=== PATIENT | female | born 1960 ===

== ENCOUNTER 2017-08-30 00:02 | Inpatient (IN) | payer MEDICAID, OTHER ==
[2017-08-30 00:47] LABS: BASO # 0.1 K/uL (0.0-0.2); BASO % 1.3 % (0.0-2.0); EOS # 0.1 K/uL (0.0-0.7); EOS % 1.3 % (0.0-4.0); HEMATOCRIT 36.7 % (34.0-47.0); LYMPH # 2.2 K/uL (1.0-4.3); LYMPH % 26.3 % (20.0-40.0); MEAN CELL VOLUME 95.2 fL (81.0-99.0); MEAN CORPUSCULAR HEMOGLOBIN 32.5 pg (27.0-31.0); MEAN CORPUSCULAR HGB CONC 34.1 g/dL (33.0-37.0); MEAN PLATELET VOLUME 10.4 fL (7.2-11.7); MONO # 0.4 K/uL (0.0-0.8); MONO % 5.2 % (0.0-10.0); RED CELL DISTRIBUTION WIDTH 14.4 % (11.5-14.5); WHITE BLOOD COUNT 8.2 K/uL (4.8-10.8)
[2017-08-30 00:54] LABS: POTASSIUM 4.4 mmol/L (3.6-5.2)
[2017-08-30 00:56] LABS: ALB/GLOB RATIO 1.1 (1.0-2.1); BILIRUBIN,TOTAL 0.6 mg/dL (0.2-1.3)
[2017-08-30 00:57] LABS: CALCIUM 9.7 mg/dl (8.6-10.4)
[2017-08-30] MEDS ORDERED: Sodium Chloride 0.9% 1,000 ML IV ONE (01:32)
--- NOTE | 2017-08-30 01:50 | C.PDOC ---
History Of Present Illness 57 y/o female c/o muscle aches and bilateral parasternal chest discomfort that began today. Denies falls or heavy lifting. No fever or chills. Time Seen by Provider: 08/30/17 00:36 Chief Complaint (Nursing): Chest Pain History Per: Patient History/Exam Limitations: no limitations Onset/Duration Of Symptoms: Hrs Current Symptoms Are (Timing): Still Present Severity: Mild Additional History Per: Patient Past Medical History Reviewed: Historical Data, Nursing Documentation, Vital Signs Vital Signs: Last Vital Signs Temp 98.1 F 08/30/17 03:10 Pulse 95 H 08/30/17 03:10 Resp 20 08/30/17 03:10 BP 124/85 08/30/17 03:10 Pulse Ox 99 08/30/17 03:10 - Medical History PMH: HTN Family History: States: Unknown Family Hx - Social History Hx Alcohol Use: No Hx Substance Use: No Review Of Systems Except As Marked, All Systems Reviewed And Found Negative. Constitutional: Positive for: Other (Muscle aches). Negative for: Fever, Chills , Sweats Cardiovascular: Positive for: Chest Pain (Parasternal chest discomfort). Negative for: Palpitations Respiratory: Negative for: Shortness of Breath Physical Exam - Physical Exam Appears: Non-toxic, No Acute Distress, Other (Appears older than stated age) Skin: Warm, Dry Head: Atraumatic, Normacephalic Chest: Tenderness (Digitally reproducible pain at the bilateral parasternal lines.) Cardiovascular: Rhythm Regular, No Murmur Respiratory: Normal Breath Sounds, No Rales, No Rhonchi, No Wheezing Extremity: Normal ROM, Tenderness (Bilateral thighs), No Deformity Neurological/Psych: Oriented x3 Gait: Steady ED Course And Treatment - Laboratory Results Result Diagrams: 08/30/17 00:42 08/30/17 00:42 Lab Interpretation: Abnormal (cpk 2213, trop neg.) ECG: Interpreted By Me ECG Rhythm: Sinus Rhythm, ST/T Changes ECG Interpretation: Normal Rate From EC O2 Sat by Pulse Oximetry: 97 (RA) Pulse Ox Interpretation: Normal - Radiology CXR: Interpreted by Me CXR Interpretation: Yes: No Acute Disease, Other (+ enlarged cardiac silhouette , no pna/pnx/CHF) Progress Note: ice pack to sternal area, IVF's, Motrin PO Reevaluation Time: 01:51 Reassessment Condition: Improved - Physician Consult Information Outcome Of Conversation: 0200: d/w Dr. Vaughan- Hospitalist [employer]- ok to Med Surg Obs. Medical Decision Making Medical Decision Making: sternal costochondritis, and mild muscle aches, no trauma, no falls, no NSAIDS/ cholesterol meds, but also mild elevated CPK 2200 pt may be mildly clinically dry, and creat 1.3 (initial for our hospital) Hydrate overnight and recheck labs in AM enlarged cardiac silhouette, consider cardiac echo to eval for dilated cardiomyopathy. Disposition Doctor Will See Patient In The: Hospital Counseled Patient/Family Regarding: Studies Performed, Diagnosis - Disposition Disposition: HOSPITALIZED Disposition Time: 02:02 Condition: GOOD - Clinical Impression Clinical Impression: Abnormal CPK, Myalgia, Chronic renal insufficiency - Scribe Statement The provider has reviewed the documentation as recorded by the Scribe Ruby saleh All medical record entries made by the Scribe were at my direction and personally dictated by me. I have reviewed the chart and agree that the record accurately reflects my personal performance of the history, physical exam, medical decision making, and the department course for this patient. I have also personally directed, reviewed, and agree with the discharge instructions and disposition.
--- NOTE | 2017-08-30 06:24 | CP.PCM.HP ---
<Amy Martinez - Last Filed: 08/30/17 07:19> History of Present Illness - History of Present Illness History of Present Illness: Patient is a 57 year old female with a past medical history of hypertension, who presents to the ED with chest pain. Patient's chest pain started at 10pm at night. She states this is the first time she has had chest pain. Patient states the pain is parasternal and worsens with movement. Patient did not take any medications to try to relieve the pain. She reports the pain is now less than it was before arriving to the ED. Patient currently denies having difficulty breathing, palpitations, abdominal pain, nausea, vomiting, and fevers. PMHx: HTN SurgHx: eye surgery 2016 FamHx: Father- [place] SocHx: denies tobacco, alcohol, and drug use Allergies: NKDA Medication: "medication for blood pressure" Present on Admission - Present on Admission Any Indicators Present on Admission: No Review of Systems - Constitutional Constitutional: absent: Chills, Excessive Sweating, Fatigue, Fever, Headache, Weakness - EENT Ears: absent: Dizziness - Cardiovascular Cardiovascular: absent: Chest Pain, Dyspnea, Lightheadedness, Palpitations - Respiratory Respiratory: absent: Cough, Dyspnea - Gastrointestinal Gastrointestinal: absent: Constipation, Diarrhea, Nausea, Vomiting - Genitourinary Genitourinary: absent: Dysuria, Hematuria, Urinary Frequency - Musculoskeletal Musculoskeletal: Myalgias (ocassional, bilateral LE). absent: Muscle Weakness, Numbness, Tingling - Neurological Neurological: absent: Dizziness, Headaches, Weakness - Endocrine Endocrine: absent: Excessive Sweating, Fatigue, Palpitations Past Patient History - Past Medical History & Family History Past Medical History?: Yes - Past Social History Smoking Status: Never Smoked - CARDIAC Hx Hypertension: Yes - PULMONARY Hx Respiratory Disorders: No - NEUROLOGICAL Hx Neurological Disorder: No - HEENT Hx HEENT Problems: No - RENAL Hx Chronic Kidney Disease: No - ENDOCRINE/METABOLIC Hx Endocrine Disorders: No - HEMATOLOGICAL/ONCOLOGICAL Hx Blood Disorders: No - INTEGUMENTARY Hx Dermatological Problems: No - MUSCULOSKELETAL/RHEUMATOLOGICAL Hx Musculoskeletal Disorders: No Hx Falls: No - GASTROINTESTINAL Hx Gastrointestinal Disorders: No - GENITOURINARY/GYNECOLOGICAL Hx Genitourinary Disorders: No - PSYCHIATRIC Hx Substance Use: No - SURGICAL HISTORY Hx Surgeries: No - ANESTHESIA Hx Anesthesia: No Hx Anesthesia Reactions: No Hx Malignant Hyperthermia: No Has any member of the family had a problem w/ anesthesia?: No Meds Allergies/Adverse Reactions: Allergies Allergy/AdvReac Type Severity Reaction Status Date / Time No Known Allergies Allergy Unverified 08/30/17 00:21 Physical Exam - Constitutional Appears: No Acute Distress - Head Exam Head Exam: ATRAUMATIC, NORMAL INSPECTION - Eye Exam Eye Exam: EOMI, Normal appearance - ENT Exam ENT Exam: Mucous Membranes Moist - Neck Exam Neck exam: Negative for: Lymphadenopathy, Tenderness, Thyromegaly - Respiratory Exam Respiratory Exam: Clear to Auscultation Bilateral, NORMAL BREATHING PATTERN. absent: Rales, Rhonchi, Wheezes, Respiratory Distress - Cardiovascular Exam Cardiovascular Exam: REGULAR RHYTHM, RRR, +S1, +S2. absent: Rubs - GI/Abdominal Exam GI & Abdominal Exam: Normal Bowel Sounds, Soft. absent: Distended, Mass, Tenderness - Extremities Exam Extremities exam: Positive for: normal inspection, pedal pulses present. Negative for: calf tenderness, pedal edema, tenderness - Neurological Exam Neurological exam: Alert, Oriented x3 - Psychiatric Exam Psychiatric exam: Normal Affect, Normal Mood - Skin Skin Exam: Dry, Intact, Normal Color, Warm Results - Vital Signs Recent Vital Signs: Last Vital Signs Temp 98.1 F 08/30/17 03:10 Pulse 95 H 08/30/17 03:10 Resp 20 08/30/17 03:10 BP 124/85 08/30/17 03:10 Pulse Ox 97 08/30/17 04:24 - Labs Result Diagrams: 08/30/17 00:42 08/30/17 00:42 Labs: Laboratory Results - last 24 hr 08/30/17 08/30/17 00:42 00:42 WBC 8.2 RBC 3.86 Hgb 12.5 Hct 36.7 MCV 95.2 MCH 32.5 H MCHC 34.1 RDW 14.4 Plt Count 175 MPV 10.4 Neut % (Auto) 65.9 Lymph % (Auto) 26.3 Gu[place]upe % (Auto) 5.2 Eos % (Auto) 1.3 Baso % (Auto) 1.3 Neut # 5.4 Lymph # 2.2 Guadalupe # 0.4 Eos # 0.1 Baso # 0.1 Sodium 136 Potassium 4.4 Chloride 101 Carbon Dioxide 23 Anion Gap 17 BUN 19 H Creatinine 1.3 H Est GFR ( Amer) 51 Est GFR (Non-Af Amer) 42 Random Glucose 123 H Calcium 9.7 Total Bilirubin 0.6 AST 64 H ALT 46 Alkaline Phosphatase 43 Total Creatine Kinase 2213 H CK-MB (Mass) 12.7 H Troponin I, Quant 0.0420 Total Protein 9.0 H Albumin 4.7 Globulin 4.2 H Albumin/Globulin Ratio 1.1 Assessment & Plan (1) Pericardial effusion Assessment and Plan: Likely pericardial effusion on chest CT Chest CT: follow up official report Echo: f/u results Ibuprofen 600mg given once for pain in ED. CXR ordered in ED showed enlarge cardiac silhouette. Cardiology consulted: Dr. Olea, help appreciated. Status: Acute (2) Abnormal CPK Assessment and Plan: Total Creatine Kinase: 2213 CAMERON: f/u results ESR: f/u results CRP: f/u results APA: f/u results TSH: f/u results CCP: f/u results RF: f/u results Status: Acute (3) Renal insufficiency Assessment and Plan: Creatinine 1.3 UA: follow up results May be secondary to dehydration. Status: Acute (4) Prophylactic measure Assessment and Plan: Heart healthy diet Pepcid 20mg PO daily Status: Acute <Paul Vaughan P - Last Filed: 09/03/17 00:08> Results - Vital Signs Recent Vital Signs: Last Vital Signs Temp 98.0 F 09/02/17 15:06 Pulse 78 09/02/17 18:41 Resp 20 09/02/17 15:06 BP 106/73 09/02/17 18:41 Pulse Ox 100 09/02/17 15:06 - Labs Result Diagrams: 09/02/17 07:17 09/02/17 07:17 Labs: Laboratory Results - last 24 hr 08/30/17 09/01/17 09/02/17 07:26 07:26 07:17 WBC RBC Hgb Hct MCV MCH MCHC RDW Plt Count MPV Neut % (Auto) Lymph % (Auto) Gu[place]upe % (Auto) Eos % (Auto) Baso % (Auto) Neut # Lymph # Guadalupe # Eos # Baso # Sodium 135 Potassium 3.8 Chloride 104 Carbon Dioxide 24 Anion Gap 11 BUN 13 Creatinine 1.1 Est GFR ( Amer) > 60 Est GFR (Non-Af Amer) 51 Random Glucose 74 Calcium 8.2 L Phosphorus 2.9 Magnesium 1.8 Total Bilirubin 0.5 AST 102 H ALT 34 Alkaline Phosphatase 35 L Total Protein 6.8 Albumin 3.7 Globulin 3.0 Albumin/Globulin Ratio 1.2 Free T4 Thyroxine (T4) 1.52 L TSH 3rd Generation 40.50 H Dibs-9-Asrjzugoqcjh Ab <9 Beta-2 GPI IgG Ab <9 Beta-2 GPI IgM Ab <9 Thyroperoxidase Ab 31 H Thyroglobulin Antibody 2 H Phosphatidylserine IgG <10 Phosphatidylserine IgA <20 Phosphatidylserine IgM <25 Anti-Phospholipid Intrp see note Anti-Cardiolipin IgG Ab <14 Anti-Cardiolipin IgA Ab <11 Anti-Cardiolipin IgM Ab <12 09/02/17 09/02/17 07:17 07:17 WBC 4.6 L RBC 3.28 L Hgb 10.7 L Hct 31.3 L MCV 95.4 MCH 32.6 H MCHC 34.1 RDW 14.4 Plt Count 135 MPV 10.3 Neut % (Auto) 64.2 Lymph % (Auto) 25.6 Gu[place]upe % (Auto) 6.0 Eos % (Auto) 3.3 Baso % (Auto) 0.9 Neut # 2.9 Lymph # 1.2 Gu[place]upe # 0.3 Eos # 0.2 Baso # 0.0 Sodium Potassium Chloride Carbon Dioxide Anion Gap BUN Creatinine Est GFR ( Amer) Est GFR (Non-Af Amer) Random Glucose Calcium Phosphorus Magnesium Total Bilirubin AST ALT Alkaline Phosphatase Total Protein Albumin Globulin Albumin/Globulin Ratio Free T4 0.08 L Thyroxine (T4) TSH 3rd Generation Mhrm-8-Dtfeyttwdsey Ab Beta-2 GPI IgG Ab Beta-2 GPI IgM Ab Thyroperoxidase Ab Thyroglobulin Antibody Phosphatidylserine IgG Phosphatidylserine IgA Phosphatidylserine IgM Anti-Phospholipid Intrp Anti-Cardiolipin IgG Ab Anti-Cardiolipin IgA Ab Anti-Cardiolipin IgM Ab Attending/Attestation - Attestation I have personally seen and examined this patient.: Yes I have fully participated in the care of the patient.: Yes I have reviewed all pertinent clinical information: Yes Notes (Text): Patient admitted with chest pain, non mulsculoskeletal upon + investigation of pericardial effusion on CT, mild rabdomyolysis, chest leads inverted t waves, pt also had edema both legs, beggy lower eyelids. Ordered TSH, screening rhematologic w/u, echo, repeat cpk, troponin, upon repeat eval patient in the morning was pain free and table vitals, cardiology was consulted as well.
[2017-08-30 07:39] LABS: BASO # 0.1 K/uL (0.0-0.2); BASO % 0.9 % (0.0-2.0); EOS % 0.3 % (0.0-4.0); HEMATOCRIT 36.6 % (34.0-47.0); LYMPH # 1.3 K/uL (1.0-4.3); LYMPH % 16.7 % (20.0-40.0); MEAN CELL VOLUME 95.3 fL (81.0-99.0); MEAN CORPUSCULAR HEMOGLOBIN 32.4 pg (27.0-31.0); MEAN PLATELET VOLUME 10.4 fL (7.2-11.7); MONO # 0.5 K/uL (0.0-0.8); RED CELL DISTRIBUTION WIDTH 14.5 % (11.5-14.5); WHITE BLOOD COUNT 7.8 K/uL (4.8-10.8)
[2017-08-30 07:46] LABS: BILIRUBIN,TOTAL 0.7 mg/dL (0.2-1.3)
[2017-08-30 07:47] LABS: ALB/GLOB RATIO 1.3 (1.0-2.1); MAGNESIUM 1.9 mg/dL (1.6-2.3)
--- NOTE | 2017-08-30 08:29 | CT ---
PROCEDURE: CT Chest without contrast HISTORY: chest pain COMPARISON: None. TECHNIQUE: Contiguous axial images were obtained through the chest without intravenous contrast enhancement. Sagittal and coronal reconstructions were performed. Radiation dose (DLP): 305.67 mGy-cm. This CT exam was performed using one or more of the following dose reduction techniques: Automated exposure control, adjustment of the mA and/or kV according to patient size, and/or use of iterative reconstruction technique. FINDINGS: LUNGS: Clear lungs. Visualized airway clear. MEDIASTINUM: Unremarkable thoracic aorta. No aneurysm. The cardiac silhouette is enlarged. There is hhad-jy-iwwnfkol pericardial effusion. Coronary artery atherosclerotic calcification are also noted. Main pulmonary artery unremarkable. No vascular congestion. No lymphadenopathy. PLEURA: No pleural fluid. No pneumothorax. BONES: No fracture. No destructive lesion. UPPER ABDOMEN: Grossly unremarkable. OTHER FINDINGS: None. IMPRESSION: Abtw-ox-uewwgaic pericardial effusion. No evidence of pneumonia or mass lesion in the lungs. Preliminary report was submitted by [facility].
[2017-08-30 08:41] LABS: TROPONIN I 13.2 ng/mL (0.00-0.120)
--- NOTE | 2017-08-30 08:56 | RAD ---
HISTORY: adm COMPARISON: No prior. FINDINGS: LUNGS: No infiltrate. Increased interstitial markings may reflect interstitial pulmonary edema. No evidence of russell alveolar pulmonary edema. PLEURA: No evidence pleural effusion or pneumothorax. CARDIOVASCULAR: Cardiomegaly. Mild congestive change. OSSEOUS STRUCTURES: No significant abnormalities. VISUALIZED UPPER ABDOMEN: Normal. OTHER FINDINGS: None. IMPRESSION: Mild congestive change and interstitial prominence suggests possible interstitial pulmonary edema. No evidence of russell alveolar edema. Follow-up advised.
[2017-08-30] MEDS ORDERED: Heparin25000 units/250ml 1/2NS 25,000 UNITS/250 ML BAG IV PRN (09:14)
[2017-08-30 09:51] LABS: THYROID STIMULATING HORMONE 38.4 mIU/L (0.46-4.68)
--- NOTE | 2017-08-30 11:16 | CP.PCM.CON ---
<[email or web address] - Last Filed: 08/30/17 19:38> History of Present Illness - History of Present Illness History of Present Illness: Meng Del Castillo DO PGY1 - Cardiology Consult Note for Dr. Olea Consultation for pericardial effusion HPI: Patient is a 57 yo F with PMH of HTN, who initially presented to ER complaining of chest pain. She now reports that chest pain started last night at 11PM while preparing some food; burning in nature; mid to left parasternal/ retrosternal pain; radiated to left shoulder and left upper chest; started suddenly; resolved after receiving motrin in the ER; no particular remitting or exacerbating factors. She has never had this pain before. She denies diaphoresis , SOB, weakness, dizziness, nausea, abdominal pain, dyspnea or worsening pain on exertion, recent trauma, recent illness, recent travel. In the ER, chest CT was done which showed small to medium sized pericardial effusion; labs showed elevated CK and CK-MB. At present, patient denies any chest pain, SOB, palpitations. She also denies any change in medications, change in activity level, sick contacts, recent bug bites. She does report to occasional pain in her legs with exertion, especially when she walks up stairs, in calf and distal thigh, both legs, worse R>L, which has been worse recently. PMH: HTN PSH: Ptyrgium removal 2015 Meds: Unknown antihypertensive Soc: Denies tobacco, alcohol, or illicits. FHx: CO in father at 78; RA in mother; DM, HTN; Heart failure in father All: NKDA ROS: In addition to HPI... Gen: Denies fatigue, F/C Neuro: Denies FUENTES, vision changes EENT: Denies Otalgia, otorrhea, rhinorrhea, facial pain/pressure Throat: Denies cough, sore throat CV: Prior chest pain; denies palpitations Pulm: Denies SOB, cough GI: Denies abdominal pain, diarrhea, constipation, N/V : Denies dysuria, hematuria Past Patient History - Past Medical History & Family History Past Medical History?: Yes - Past Social History Smoking Status: Never Smoked - CARDIAC Hx Hypertension: Yes - PULMONARY Hx Respiratory Disorders: No - NEUROLOGICAL Hx Neurological Disorder: No - HEENT Hx HEENT Problems: No - RENAL Hx Chronic Kidney Disease: No - ENDOCRINE/METABOLIC Hx Endocrine Disorders: No - HEMATOLOGICAL/ONCOLOGICAL Hx Blood Disorders: No - INTEGUMENTARY Hx Dermatological Problems: No - MUSCULOSKELETAL/RHEUMATOLOGICAL Hx Musculoskeletal Disorders: No Hx Falls: No - GASTROINTESTINAL Hx Gastrointestinal Disorders: No - GENITOURINARY/GYNECOLOGICAL Hx Genitourinary Disorders: No - PSYCHIATRIC Hx Substance Use: No - SURGICAL HISTORY Hx Surgeries: No - ANESTHESIA Hx Anesthesia: No Hx Anesthesia Reactions: No Hx Malignant Hyperthermia: No Has any member of the family had a problem w/ anesthesia?: No Meds Allergies/Adverse Reactions: Allergies Allergy/AdvReac Type Severity Reaction Status Date / Time No Known Allergies Allergy Unverified 08/30/17 00:21 - Medications Medications: Current Medications Aspirin (Aspirin Chewable) 81 mg PO DAILY CHELY Clopidogrel Bisulfate (Plavix) 75 mg PO DAILY CHELY Heparin Sodium/Sodium Chloride (Heparin 86936 Units/250ml 1/2 Normal Saline) 25 ,000 units in 250 mls @ 0 mls/hr IV .Q0M PRN; Protocol; Per Protocol PRN Reason: ADJUST RATE PER PROTOCOL Rosuvastatin Calcium (Crestor) 20 mg PO HS CHELY Physical Exam - Constitutional Appears: Non-toxic, No Acute Distress - Head Exam Head Exam: ATRAUMATIC, NORMOCEPHALIC - Eye Exam Eye Exam: EOMI, Normal appearance - ENT Exam ENT Exam: Mucous Membranes Moist - Neck Exam Neck exam: Positive for: Normal Inspection - Respiratory Exam Respiratory Exam: Clear to Auscultation Bilateral, NORMAL BREATHING PATTERN - Cardiovascular Exam Cardiovascular Exam: RRR, +S1, +S2 Additional comments: Chest wall tenderness, though not a reproduction of chest pain - GI/Abdominal Exam GI & Abdominal Exam: Soft. absent: Tenderness - Extremities Exam Extremities exam: Negative for: calf tenderness, pedal edema Additional comments: Right calf tense compared to left - Neurological Exam Neurological exam: Alert, Oriented x3 - Psychiatric Exam Psychiatric exam: Normal Affect, Normal Mood - Skin Skin Exam: Dry, Intact Results - Vital Signs Recent Vital Signs: Last Vital Signs Temp 98.2 F 08/30/17 07:05 Pulse 85 08/30/17 07:05 Resp 17 08/30/17 07:05 BP 113/72 08/30/17 07:05 Pulse Ox 100 08/30/17 07:05 - Labs Result Diagrams: 08/30/17 07:26 08/30/17 07:26 Labs: Laboratory Results - last 24 hr 08/30/17 08/30/17 08/30/17 00:42 00:42 07:26 WBC 8.2 7.8 RBC 3.86 3.84 Hgb 12.5 12.4 Hct 36.7 36.6 MCV 95.2 95.3 MCH 32.5 H 32.4 H MCHC 34.1 34.0 RDW 14.4 14.5 Plt Count 175 175 MPV 10.4 10.4 Neut % (Auto) 65.9 76.1 H Lymph % (Auto) 26.3 16.7 L Piatt % (Auto) 5.2 6.0 Eos % (Auto) 1.3 0.3 Baso % (Auto) 1.3 0.9 Neut # 5.4 6.0 Lymph # 2.2 1.3 Piatt # 0.4 0.5 Eos # 0.1 0.0 Baso # 0.1 0.1 ESR 27 H Sodium 136 Potassium 4.4 Chloride 101 Carbon Dioxide 23 Anion Gap 17 BUN 19 H Creatinine 1.3 H Est GFR ( Amer) 51 Est GFR (Non-Af Amer) 42 Random Glucose 123 H Calcium 9.7 Magnesium Total Bilirubin 0.6 AST 64 H ALT 46 Alkaline Phosphatase 43 Total Creatine Kinase 2213 H CK-MB (Mass) 12.7 H Troponin I Troponin I, Quant 0.0420 C-React Prot High Sens Total Protein 9.0 H Albumin 4.7 Globulin 4.2 H Albumin/Globulin Ratio 1.1 TSH 3rd Generation 08/30/17 08/30/17 07:26 07:26 WBC RBC Hgb Hct MCV MCH MCHC RDW Plt Count MPV Neut % (Auto) Lymph % (Auto) Piatt % (Auto) Eos % (Auto) Baso % (Auto) Neut # Lymph # Piatt # Eos # Baso # ESR Sodium 135 Potassium 4.0 Chloride 102 Carbon Dioxide 23 Anion Gap 13 BUN 16 Creatinine 1.2 Est GFR ( Amer) 56 Est GFR (Non-Af Amer) 46 Random Glucose 85 Calcium 9.0 Magnesium 1.9 Total Bilirubin 0.7 AST 163 H D ALT 39 Alkaline Phosphatase 42 Total Creatine Kinase 3044 H CK-MB (Mass) 68.3 H Troponin I 13.2000 H* Troponin I, Quant C-React Prot High Sens 3.63 H Total Protein 8.0 Albumin 4.5 Globulin 3.5 Albumin/Globulin Ratio 1.3 TSH 3rd Generation 38.40 H Assessment & Plan - Assessment and Plan (Free Text) Assessment: 57 yo F with PMH of HTN presents for CP, noted to have pericardial effusion on chest CT, and subsequent elevation in cardiac enzymes Plan: 1. Pericardial effusion - Small to medium sized effusion seen on chest CT - Echo showed moderate pericardial effusion, reduced LV function, collapsing RV - Likely 2/2 pericarditis vs hypothyroidism vs CO - ESR and CRP elevated; Autoimmune workup ordered, pending - TSH 38.4; free T4 pending - Plan for RHCx and LHCx, with diagnostic/therapeutic pericardiocentesis if chamber pressures indicate hemodynamic compromise 2. Chest pain - Patient presented with typical chest pain, but no associated symptoms, and few risk factors - ST depressions noted in lateral leads on EKG - CK and CKMB elevated in ER, trended up - Troponin normal initially, but trended up significantly today - Ordered loading dose of ASA, Plavix with maintenance daily doses - Start BB, Crestor - Heparin drip ordered - Plan for RHCx and LHCx today at [facility] 3. HTN - BP currently stable - Start BB - Continue to monitor and titrate meds as needed 4. Hypothyroidism - Pt does not have a history of hypothyroidism; TSH severely elevated - Free T4 ordered, pending - Questionable nodule on palpation of right thyroid lobe; recommend thyroid US Patient seen, discussed, and reviewed with attending <Kolby Olea - Last Filed: 09/15/17 14:27> Results - Vital Signs Recent Vital Signs: Last Vital Signs Temp 98.0 F 09/03/17 15:08 Pulse 78 09/03/17 15:08 Resp 20 09/03/17 15:08 BP 120/84 09/03/17 15:08 Pulse Ox 99 09/03/17 15:08 - Labs Result Diagrams: 09/03/17 07:07 09/03/17 07:07 Attending/Attestation - Attestation I have personally seen and examined this patient.: Yes I have fully participated in the care of the patient.: Yes I have reviewed all pertinent clinical information: Yes Notes (Text): 09/15/17 14:26 57 year old female presenting with SOB and chest pain moderate pericardial effusion on CT Echo done showed new onset CHF with moderate pericardial effusion +ve TnI trending up GDMT for NSTEMI and CAD plan for cath
[2017-08-30 13:04] LABS: URINE BILIRUBIN NEGATIVE (NEGATIVE); URINE BLOOD 1+ (NEGATIVE); URINE COLOR Straw (YELLOW); URINE GLUCOSE (UA) NORMAL (Normal); URINE KETONE NEGATIVE (NEGATIVE); URINE LEUKOCYTE ESTERASE NEG Leu/uL (Negative); URINE PROTEIN 1+ mg/dL (NEGATIVE); URINE UROBILINOGEN NORMAL mg/dL (0.2-1.0); WBC URINE < 1 /hpf (0-5)
--- NOTE | 2017-08-30 15:33 | CP.PCM.PN ---
<Arlen Arora - Last Filed: 08/30/17 15:30> Subjective - Date & Time of Evaluation Date of Evaluation: 08/30/17 Time of Evaluation: 09:00 - Subjective Subjective: Medicine Note for Dr. Guadarrama Patient was seen and examined at bedside. No acute complaints. Explained to patient she would need to be transferred to [place] for cardiac cath, she will be transferred back to [facility] s/p procedure. Denied fever, chills, headache, chest pain, abdominal pain, n/v/d/c, or urinary symptoms. Objective - Vital Signs/Intake and Output Vital Signs (last 24 hours): Temp Pulse Resp BP Pulse Ox 98.2 F 85 17 113/72 100 08/30/17 07:05 08/30/17 07:05 08/30/17 07:05 08/30/17 07:05 08/30/17 07:05 Intake and Output: 08/30/17 08/30/17 06:59 18:59 Intake Total 0 Balance 0 - Medications Medications: Current Medications Aspirin (Aspirin Chewable) 81 mg PO DAILY [facility] Clopidogrel Bisulfate (Plavix) 75 mg PO DAILY [facility] Heparin Sodium/Sodium Chloride (Heparin 79925 Units/250ml 1/2 Normal Saline) 25 ,000 units in 250 mls @ 0 mls/hr IV .Q0M PRN; Protocol; Per Protocol PRN Reason: ADJUST RATE PER PROTOCOL Rosuvastatin Calcium (Crestor) 20 mg PO HS [facility] - Labs Labs: 08/30/17 07:26 08/30/17 07:26 APTT 35 SECONDS (21-34) H 08/30/17 11:11 - Additional Findings Additional findings: - Constitutional Appears: No Acute Distress - Head Exam Head Exam: ATRAUMATIC, NORMAL INSPECTION - Eye Exam Eye Exam: EOMI, Normal appearance - ENT Exam ENT Exam: Mucous Membranes Moist - Neck Exam Neck exam: Negative for: Lymphadenopathy, Tenderness, Thyromegaly - Respiratory Exam Respiratory Exam: Clear to Auscultation Bilateral, NORMAL BREATHING PATTERN. absent: Rales, Rhonchi, Wheezes, Respiratory Distress - Cardiovascular Exam Cardiovascular Exam: REGULAR RHYTHM, RRR, +S1, +S2. absent: Rubs - GI/Abdominal Exam GI & Abdominal Exam: Normal Bowel Sounds, Soft. absent: Distended, Mass, Tenderness - Extremities Exam Extremities exam: Positive for: normal inspection, pedal pulses present. Negative for: calf tenderness, pedal edema, tenderness - Neurological Exam Neurological exam: Alert, Oriented x3 - Psychiatric Exam Psychiatric exam: Normal Affect, Normal Mood - Skin Skin Exam: Dry, Intact, Normal Color, Warm Assessment and Plan - Assessment and Plan (Free Text) Plan: Pericardial effusion * Cardiology consulted -Dr. Olea- help appreciated * Chest CT: [id number] pericardial effusion. No evidence of pneumonia or mass lesion in the lungs. * Echo: Showed moderate pericardial effusion, reduced LV function, collapsing RV. Pending official read * Patient transferred to [place] for Cardiac Cath today with Dr. Olea - she will be returning to [facility] * ASA 81mg PO daily * Plavix 75mg PO daily * Heparin Drip started * Crestor 20mg PO QHS Hypothyroidism * TSH - 38.40, Free T4 - f/u Abnormal CPK * Total Creatine Kinase: 2213 * F/U: CAMERON- neg, ESR- 27, CRP- high, APA, CCP, RF Renal insufficiency * BUN/Creatinine: 19/1.3 * UA: WNL * May be secondary to dehydration Prophylactic measure * GI PPX:Pepcid 20mg PO daily * DVT PPX: SCDs, heparin drip * Heart healthy diet DW IGOR Jeffery DO, PGY-1 <David Gutierrez - Last Filed: 08/30/17 20:08> Objective - Vital Signs/Intake and Output Vital Signs (last 24 hours): Temp Pulse Resp BP Pulse Ox 98.2 F 85 17 113/72 100 08/30/17 07:05 08/30/17 07:05 08/30/17 07:05 08/30/17 07:05 08/30/17 07:05 - Medications Medications: Current Medications Aspirin (Aspirin Chewable) 81 mg PO DAILY [facility] Clopidogrel Bisulfate (Plavix) 75 mg PO DAILY [facility] Metoprolol Tartrate (Lopressor) 25 mg PO BID [facility] Rosuvastatin Calcium (Crestor) 20 mg PO HS [facility] - Labs Labs: 08/30/17 07:26 08/30/17 07:26 APTT 35 SECONDS (21-34) H 08/30/17 11:11 Attending/Attestation - Attestation I have personally seen and examined this patient.: Yes I have fully participated in the care of the patient.: Yes I have reviewed all pertinent clinical information, including history, physical exam and plan: Yes Notes (Text): This is a 57years old female with history of hypertension was admitted last night for chest pain.patient was seen and examined with resident this morning.Patient was resting comfortable without chest pain.Her chest pain started last night at 10pm.moderate to severe retrosternal nonradiating chest pain.Denies difficulty in breathing,no nausea,no vomitng.Chest x ray with cardiomegaly,CT chest showed pericardial effusion.Troponin was elevated.Cardiology consulted.started on heparin,plavix and asprin 1.chest pain,elevated troponin,pericardial effusion Dr. Olea tower control operator consulted * Patient transferred to [place] for Cardiac Cath today with Dr. Olea - she will be returning to [facility] * ASA 81mg PO daily * Plavix 75mg PO daily * Heparin Drip started * Crestor 20mg PO QHS 2.Acute renal failure-Creatinine improving.likely due to poor hydration 3.Hypothyroidism-follow 4. * GI PPX:Pepcid 20mg PO daily * DVT PPX: SCDs, heparin drip * Heart healthy diet
--- NOTE | 2017-08-31 00:44 | CARD ---
APPROVED REPORT EXAM: Two-dimensional and M-mode echocardiogram with Doppler and color Doppler. Other Information Quality : GoodRhythm : INDICATION Abnormal EKG/Arrhythmia Pericardial Effusion 2D DIMENSIONS IVSd1.0 (0.7-1.1cm)LVDd4.9 (3.9-5.9cm) PWd1.1 (0.7-1.1cm)LVDs4.5 (2.5-4.0cm) FS (%) 9.4 %LVEF (%)20.7 (>50%) M-Mode DIMENSIONS RVDd1.29 (2.1-3.2cm)Left Atrium (MM)3.25 (2.5-4.0cm) Aortic Root3.57 (2.2-3.7cm)Aortic Cusp Exc.1.89 (1.5-2.0cm) Mitral Valve MV E Yttaipgg87.7cm/sMV A Gkmdlrpk469.0cm/sE/A ratio0.7 TDI E/Lateral E'0.0E/Medial E'0.0 Tricuspid Valve TR Peak Fmgmqnqr089jz/sTR Peak Gr.77kgCyQCKM11eoEa LEFT VENTRICLE The left ventricle is grossly normal size. There is normal left ventricular wall thickness. Left ventricle systolic function is severely impaired. The Ejection Fraction is 20-25%. There is global hypokinesis of the left ventricle. The left ventricular diastolic function is abnormal. Transmitral Doppler flow pattern is Grade I-abnormal relaxation pattern. No left ventricle thrombus noted on this study. RIGHT VENTRICLE Moderate pericardial effusion with diastolic collapse of the right ventricle noted consistent with possible cardiac tamponade. ATRIA The left atrium size is normal. There is moderate pericardial effusion with diastolic collapse of the right atrium noted. AORTIC VALVE The aortic valve is mildly thickened. The aortic valve is trileaflet. No aortic regurgitation is present. There is no aortic valvular stenosis. There is no aortic valvular vegetation. MITRAL VALVE Mitral annular calcification is mild. There is no evidence of mitral valve prolapse. There is no mitral valve stenosis. Mitral regurgitation is mild to moderate. TRICUSPID VALVE The tricuspid valve is normal in structure. There is moderate tricuspid regurgitation. Right ventricular systolic pressure is estimated at less than 30 mmHg. There is no pulmonary hypertension. There is no tricuspid valve prolapse or vegetation. There is no tricuspid valve stenosis. PULMONIC VALVE The pulmonic valve is not well visualized. GREAT VESSELS The aortic root is normal in size. PERICARDIAL EFFUSION There is a small-moderate circumferential pericardial effusion. There is an evidence of diastolic compression of the right atrium and right ventricle pericardial effusion. <Conclusion> The left ventricle is grossly normal size. Left ventricle systolic function is severely impaired. The Ejection Fraction is 20-25%. There is global hypokinesis of the left ventricle. The left ventricular diastolic function is abnormal. Mitral regurgitation is mild to moderate. There is moderate tricuspid regurgitation. There is an evidence of diastolic compression of the right atrium and right ventricle. There is moderate circumferential pericardial effusion with diastolic collapse of the right atrium and right ventricle noted consistent with possible cardiac tamponade. Please correlate clinically.
[2017-08-31 08:34] LABS: BASO # 0.1 K/uL (0.0-0.2); BASO % 1.3 % (0.0-2.0); EOS # 0.1 K/uL (0.0-0.7); EOS % 1.4 % (0.0-4.0); HEMATOCRIT 36.8 % (34.0-47.0); LYMPH % 27.2 % (20.0-40.0); MEAN CORPUSCULAR HEMOGLOBIN 32.6 pg (27.0-31.0); MEAN CORPUSCULAR HGB CONC 33.5 g/dL (33.0-37.0); MEAN PLATELET VOLUME 10.4 fL (7.2-11.7); MONO # 0.4 K/uL (0.0-0.8); MONO % 5.4 % (0.0-10.0); NRBC % 0.1 % (0.0-2.0); RED CELL DISTRIBUTION WIDTH 14.6 % (11.5-14.5); WHITE BLOOD COUNT 7.2 K/uL (4.8-10.8)
[2017-08-31 08:38] LABS: MEAN CELL VOLUME 97.3 fL (81.0-99.0)
[2017-08-31 08:50] LABS: CHLORIDE 104 mmol/L (98-107); POTASSIUM 3.7 mmol/L (3.6-5.2); SODIUM 137 mmol/L (132-148)
[2017-08-31 08:52] LABS: BILIRUBIN,TOTAL 0.8 mg/dL (0.2-1.3); CARBON DIOXIDE 20 mmol/L (22-30); GFR AFRICAN-AMERICAN > 60
[2017-08-31 08:53] LABS: ALB/GLOB RATIO 1.1 (1.0-2.1); ALKALINE PHOSPHATASE 43 U/L (38-126); ALT/SGPT 37 U/L (9-52); AST/SGOT 198 U/L (14-36); BLOOD UREA NITROGEN 12 mg/dL (7-17); GLUCOSE,RANDOM 87 mg/dL (65-105); PHOSPHOROUS 2.6 mg/dL (2.5-4.5); TOTAL PROTEIN 8.1 g/dL (6.3-8.3)
[2017-08-31 08:54] LABS: CALCIUM 8.9 mg/dl (8.6-10.4); MAGNESIUM 2.1 mg/dL (1.6-2.3)
--- NOTE | 2017-08-31 09:05 | CP.PCM.PN ---
<MENG DEL CASTILLO - Last Filed: 08/31/17 20:56> Subjective - Date & Time of Evaluation Date of Evaluation: 08/31/17 Time of Evaluation: 06:45 - Subjective Subjective: Meng Del Castillo DO PGY1 - Cardiology Progress Note for Dr. Olea Patient seen and examined at bedside. Patient is s/p RHCx and LHCx with PCI for chest pain and pericardial effusion. No events overnight. Patient currently denies any CP, SOB, palpitations, pain or swelling in legs, groin pain. Patient admits to fatigue, and daytime somnolence which she has had for a long time at home, unsure when exactly it started. Objective - Vital Signs/Intake and Output Vital Signs (last 24 hours): Temp Pulse Resp BP Pulse Ox 98.6 F 84 20 105/73 96 08/31/17 07:00 08/31/17 07:00 08/31/17 07:00 08/31/17 07:00 08/31/17 07:00 - Medications Medications: Current Medications Aspirin (Aspirin Chewable) 81 mg PO DAILY [facility] Clopidogrel Bisulfate (Plavix) 75 mg PO DAILY [facility] Metoprolol Tartrate (Lopressor) 25 mg PO BID [facility] Rosuvastatin Calcium (Crestor) 20 mg PO HS [facility] Last Admin: 08/30/17 23:25 Dose: 20 mg - Labs Labs: 08/31/17 08:22 08/30/17 07:26 APTT 35 SECONDS (21-34) H 08/30/17 11:11 - Constitutional Appears: Non-toxic, No Acute Distress - Head Exam Head Exam: ATRAUMATIC, NORMOCEPHALIC - Eye Exam Eye Exam: EOMI, Normal appearance - ENT Exam ENT Exam: Mucous Membranes Moist - Neck Exam Neck Exam: Normal Inspection Additional comments: No JVD, no hepatojugular reflux - Respiratory Exam Respiratory Exam: Clear to Ausculation Bilateral. absent: Rales, Rhonchi, Wheezes - Cardiovascular Exam Cardiovascular Exam: RRR, +S1, +S2. absent: Rubs - GI/Abdominal Exam GI & Abdominal Exam: Soft. absent: Tenderness Additional comments: Minimal groin tenderness. No hematoma, no bruits - Extremities Exam Extremities Exam: absent: Calf Tenderness, Pedal Edema Additional comments: DP pulses palpable bilaterally - Neurological Exam Neurological Exam: Alert, Awake, Oriented x3 - Psychiatric Exam Psychiatric exam: Normal Affect, Normal Mood - Skin Skin Exam: Dry, Intact Assessment and Plan - Assessment and Plan (Free Text) Assessment: 57 yo F with PMH of HTN presents for CP, noted to have pericardial effusion on chest CT, and subsequent elevation in cardiac enzymes Plan: 1. Pericardial effusion - Small to medium sized effusion seen on chest CT - Echo showed moderate pericardial effusion, reduced LV function, collapsing RV - Likely 2/2 hypothyroidism vs MT vs pericarditis - Patient likely had underlying pericardial effusion 2/2 chronic, undiagnosed hypothyroidism, which was acutely worsened with NSTEMI which made her preload dependant - ESR and CRP elevated; Autoimmune workup ordered, pending - TSH 38.4; free T4 pending - Patient is s/p RHCx and LHCx; pericardiocentesis not done; RHCx did not demonstrate elevated filling pressures or tamponade physiology 2. Chest pain, 2/2 NSTEMI - Patient presented with typical chest pain, but no associated symptoms, and few risk factors - ST depressions noted in lateral leads on EKG - CK and CKMB elevated in ER, trended up; Troponin normal initially, continued to trend up throughout the day - Patient s/p LHCx which demonstrated 100% calcified occlusion in proximal left circumflex artery, ruptured plaque in proximal LAD and occlusive thrombus in distal LAD; subsequent PCI with [id number]-[id number] LAD JAZMINE placement and PTCA with intracoronary integrilin and POBA of distal LAD - Patient receiving loading doses of ASA and plavix yesterday; continue ASA, plavix - Continue BB, Statin - Heparin drip ordered yesterday, but was not started, and was ultimately cancelled preprocedure 3. Hyperlipidemia - Lipid panel done today, shows elevated total cholesterol, LDL, and triglycerides, but good HDL - Continue statin, as above 4. HTN - BP currently stable - Continue BB - Continue to monitor and titrate meds as needed 5. Hypothyroidism - Pt does not have a history of hypothyroidism; TSH severely elevated - Free T4 low - Questionable nodule on palpation of right thyroid lobe; recommend thyroid US - Treatment as per primary team Patient seen, discussed, and reviewed with attending <Kolby Olea - Last Filed: 09/15/17 14:29> Objective - Vital Signs/Intake and Output Vital Signs (last 24 hours): Temp Pulse Resp BP Pulse Ox 98.0 F 78 20 120/84 99 10/13/17 15:08 09/03/17 15:08 09/03/17 15:08 09/03/17 15:08 09/03/17 15:08 - Labs Labs: 09/03/17 07:07 09/03/17 07:07 PT 11.7 SECONDS (9.7-12.2) 08/31/17 11:43 INR 1.0 08/31/17 11:43 APTT 35 SECONDS (21-34) H 08/30/17 11:11 Attending/Attestation - Attestation I have personally seen and examined this patient.: Yes I have fully participated in the care of the patient.: Yes I have reviewed all pertinent clinical information, including history, physical exam and plan: Yes
[2017-08-31 09:27] LABS: CHOLESTEROL 484 mg/dL (0-199)
--- NOTE | 2017-08-31 12:50 | CP.PCM.PN ---
<IgorArlen - Last Filed: 08/31/17 12:42> Subjective - Date & Time of Evaluation Date of Evaluation: 08/31/17 Time of Evaluation: 09:00 - Subjective Subjective: Medicine Note for Dr. Guadarrama Patient was seen and examined at bedside. No acute complaints. S/O cardiac catherization with Dr. Olea, RHCx and LHCx with PCI for chest pain and pericardial effusion. Denied fever, chills, headache, chest pain, abdominal pain , n/v/d/c, or urinary symptoms. Objective - Vital Signs/Intake and Output Vital Signs (last 24 hours): Temp Pulse Resp BP Pulse Ox 98.6 F 81 20 101/65 96 08/31/17 07:00 08/31/17 09:30 08/31/17 07:00 08/31/17 09:31 08/31/17 07:00 - Medications Medications: Current Medications Aspirin (Aspirin Chewable) 81 mg PO DAILY [facility] Last Admin: 08/31/17 09:32 Dose: 81 mg Clopidogrel Bisulfate (Plavix) 75 mg PO DAILY [facility] Last Admin: 08/31/17 09:32 Dose: 75 mg Metoprolol Tartrate (Lopressor) 25 mg PO BID [facility] Last Admin: 08/31/17 09:31 Dose: Not Given Rosuvastatin Calcium (Crestor) 20 mg PO HS [facility] Last Admin: 08/30/17 23:25 Dose: 20 mg - Labs Labs: 08/31/17 08:22 08/31/17 08:22 PT 11.7 SECONDS (9.7-12.2) 08/31/17 11:43 INR 1.0 08/31/17 11:43 APTT 35 SECONDS (21-34) H 08/30/17 11:11 - Additional Findings Additional findings: - Constitutional Appears: No Acute Distress - Head Exam Head Exam: ATRAUMATIC, NORMAL INSPECTION, some periorbital swelling noted - Eye Exam Eye Exam: EOMI, Normal appearance - ENT Exam ENT Exam: Mucous Membranes Moist - Neck Exam Neck exam: Negative for: Lymphadenopathy, Tenderness, Thyromegaly - Respiratory Exam Respiratory Exam: Clear to Auscultation Bilateral, NORMAL BREATHING PATTERN. absent: Rales, Rhonchi, Wheezes, Respiratory Distress - Cardiovascular Exam Cardiovascular Exam: REGULAR RHYTHM, RRR, +S1, +S2. absent: Rubs - GI/Abdominal Exam GI & Abdominal Exam: Normal Bowel Sounds, Soft. absent: Distended, Mass, Tenderness - Extremities Exam Extremities exam: Positive for: normal inspection, pedal pulses present. Negative for: calf tenderness, pedal edema, tenderness - Neurological Exam Neurological exam: Alert, Oriented x3 - Psychiatric Exam Psychiatric exam: Normal Affect, Normal Mood - Skin Skin Exam: Dry, Intact, Normal Color, Warm Assessment and Plan - Assessment and Plan (Free Text) Plan: Pericardial effusion * Cardiology consulted -Dr. Olea- help appreciated * Chest CT: [id number]-[id number] pericardial effusion. No evidence of pneumonia or mass lesion in the lungs. * Echo: Showed moderate pericardial effusion, reduced LV function, collapsing RV. Pending official read * Patient transferred to [place] for Cardiac Cath with Dr. Olea - s/p RHCx and LHCx with PCI for chest pain and pericardial effusion * ASA 81mg PO daily * Plavix 75mg PO daily * Crestor 20mg PO QHS Hypothyroidism * Right sided, thyromegaly * TSH - 38.40, Free T4 - 0.07 * ESR - 27, CRP 3.6 * Endocrinology consulted - Dr. Huizar - donna appreciated * F/U thyroid US Hyperlipidemia * T , LDL:337, Choles:484, HDL: 68 * Hga1c (08/2017): 5.6 * Crestor 20mg PO QHS Renal insufficiency - Resolved * BUN/Creatinine: 19/1.3 * UA: WNL * May be secondary to dehydration Prophylactic measure * GI PPX:Pepcid 20mg PO daily * DVT PPX: SCDs, Heparin Q12 * Heart healthy diet * Social work- to help patient apply for christ[facility] care IGOR Jeffery DO, PGY-1 <David Gutierrez - Last Filed: 08/31/17 15:48> Objective - Vital Signs/Intake and Output Vital Signs (last 24 hours): Temp Pulse Resp BP Pulse Ox 98.3 F 76 18 102/64 99 08/31/17 12:40 08/31/17 14:22 08/31/17 12:40 08/31/17 14:22 08/31/17 12:40 - Medications Medications: Current Medications Aspirin (Aspirin Chewable) 81 mg PO DAILY [facility] Last Admin: 08/31/17 09:32 Dose: 81 mg Clopidogrel Bisulfate (Plavix) 75 mg PO DAILY [facility] Last Admin: 08/31/17 09:32 Dose: 75 mg Heparin Sodium (Porcine) (Heparin) 5,000 units SC Q12 [facility] Levothyroxine Sodium (Synthroid) 75 mcg PO DAILY@0630 [facility] Metoprolol Tartrate (Lopressor) 25 mg PO BID [facility] Last Admin: 08/31/17 09:31 Dose: Not Given Rosuvastatin Calcium (Crestor) 20 mg PO HS [facility] Last Admin: 08/30/17 23:25 Dose: 20 mg - Labs Labs: 08/31/17 08:22 08/31/17 08:22 PT 11.7 SECONDS (9.7-12.2) 08/31/17 11:43 INR 1.0 08/31/17 11:43 APTT 35 SECONDS (21-34) H 08/30/17 11:11 Attending/Attestation - Attestation I have personally seen and examined this patient.: Yes I have fully participated in the care of the patient.: Yes I have reviewed all pertinent clinical information, including history, physical exam and plan: Yes Notes (Text): patient was seen and examined resident.She denies chest pain,no shortness of breath,lying on bed comfortable. 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 Pericardial effusion Small to medium sized effusion seen on chest CT - Echo showed moderate pericardial effusion, reduced LV function, collapsing RV, no signs of tamponade As per cardiology contributing factors for her pericardial effusion is hypothyroidism vs [place] vs pericarditis ESR and CRP elevated 3. Hyperlipidemia continue statin 4. HTN monitor BP,on beta gloria 5. Hypothyroidism Pt does not have a history of hypothyroidism; TSH elevated, Free T4 low.Seen by Dr Huizar and started on Levothyroxin. Help appreciated 08/31/17 15:46
[2017-08-31] MEDS ORDERED: Levothyroxine 200 mcg (0.2 mg) Inj IVP STA (13:40)
[2017-08-31] MEDS ORDERED: Levothyroxine 100 mcg (0.1 mg) Inj IVP ONE (14:00)
--- NOTE | 2017-08-31 14:08 | US ---
HISTORY: right thyromegaly TECHNIQUE: Sonographic evaluation of the thyroid gland. COMPARISON: None available. FINDINGS: RIGHT LOBE: Measures 3.5 x 1.4 x 1.1 cm. Heterogeneous echogenicity is seen throughout the right thyroid lobe with innumerable tiny nodules not excluded though no isolated dominant mass is evident grossly. Color Doppler blood flow was unremarkable grossly. LEFT LOBE: Measures 3.4 x 0.9 x 1.2 cm. Heterogeneous echogenicity is seen throughout the left thyroid lobe with innumerable tiny nodules not excluded though no isolated dominant mass is evident grossly. Color Doppler blood flow was unremarkable grossly. ISTHMUS: Measures 0.24 cm. The axis appears inhomogeneous in echotexture without discrete mass identified. OTHER FINDINGS: None . IMPRESSION: A small thyroid gland is appreciate with diffusely inhomogeneous echotexture. Tiny nodules are not excluded bilaterally though no dominant masses appreciated either lobe or the isthmus in particular. Clinical and potential sonographic follow-up are advised. If there is clinical concern for right-sided neck lesion further then follow-up neck CT with contrast may be helpful for additional characterization of the neck.
[2017-08-31 17:35] LABS: CCP IGG <16 Units (<20)
[2017-08-31] MEDS: Sodium Chloride 0.9% 1,000 ML IV SCH (17:39)
--- NOTE | 2017-08-31 21:26 | CON ---
ENDOCRINOLOGY CONSULTATION LOCATION: Room #663. HISTORY OF PRESENT ILLNESS: This is a 57-year-old female, presenting here with precordial chest pain radiating to the left side of her anterior chest wall and has been evaluated to have an acute myocardial infarction with supervening and underlying pericardial effusion and hypothyroidism as noted thereof. PAST MEDICAL HISTORY: As mentioned above, history of hypertension and dyslipidemia. FAMILY HISTORY: Positive for diabetes and hypertension. SOCIAL HISTORY: The patient has supportive family. No known substance use. REVIEW OF SYSTEMS: As mentioned above, admits to generalized body weakness with easy fatigability, tiredness, and suboptimal energy level. No chest pain, palpitations, or PND. Her oral intake has been variable with nausea, dyspepsia, vague upper abdominal pain with habitual constipation. PHYSICAL EXAMINATION: GENERAL: This is an average-built female, in no apparent distress. VITAL SIGNS: Her blood pressure 140/80, pulse of 60 beats per minute and regular, temperature 98, respirations 16, height is 5 feet 5 inches, and weight is 172 pounds. HEENT: Head is normocephalic. Eyes, anicteric with pink conjunctivae. Funduscopy is not possible at this time. Ears, nose, and throat are otherwise normal. NECK: Supple. Thyroid gland shows mild thyromegaly which is diffuse and nontender and moves with deglutition. LABORATORY DATA: Laboratory showed a chemistry, BUN of 12, sodium 137, potassium 3.7, chloride 104, CO2 of 20, glucose 87, creatinine 0.6, free T4 is less than 0.07 with a TSH of 38.40. She also had a CAT of the chest showing a moderate pericardial effusion as noted thereof. ASSESSMENT: This is a 57-year-old female with overt hypothyroidism both historically, clinically, and biochemically, presenting here with precordial chest pain and undergoing cardiac workup and management at this time. PLAN OF MANAGEMENT: As discussed with the patient and the staff. We will obtain a comprehensive thyroid hormonal profile with a total T4, free T4, and TSH tomorrow morning. We will also obtain a thyroid peroxidase antibody and thyroglobulin antibody which will confirm and indicate the presence of underlying thyroid autoimmunity. We will obtain serial chemistries and supplement accordingly as needed. We will follow with you. Padmini Huizar MD [facility] # [id number]
[2017-09-01] MEDS: Sodium Chloride 0.9% 1,000 ML IV SCH ×3 (05:44→21:00)
--- NOTE | 2017-09-01 06:24 | CP.PCM.PN ---
<Arlen Arora - Last Filed: 09/01/17 11:49> Subjective - Date & Time of Evaluation Date of Evaluation: 09/01/17 Time of Evaluation: 09:00 - Subjective Subjective: Medicine Note for Dr. Guadarrama Patient was seen and examined at bedside. No acute complaints. Denied fever, chills, headache, chest pain, abdominal pain, n/v/d/c, or urinary symptoms. Objective - Vital Signs/Intake and Output Vital Signs (last 24 hours): Temp Pulse Resp BP Pulse Ox 98.4 F 73 20 112/69 96 08/31/17 23:05 08/31/17 23:05 08/31/17 23:05 08/31/17 23:05 08/31/17 23:05 Intake and Output: 08/31/17 09/01/17 18:59 06:59 Intake Total 500 Balance 500 - Medications Medications: Current Medications Aspirin (Aspirin Chewable) 81 mg PO DAILY [facility] Last Admin: 08/31/17 09:32 Dose: 81 mg Clopidogrel Bisulfate (Plavix) 75 mg PO DAILY [facility] Last Admin: 08/31/17 09:32 Dose: 75 mg Heparin Sodium (Porcine) (Heparin) 5,000 units SC Q12 [facility] Last Admin: 08/31/17 22:38 Dose: 5,000 units Sodium Chloride (Sodium Chloride 0.9%) 1,000 mls @ 100 mls/hr IV .Q10H [facility] Last Admin: 09/01/17 05:44 Dose: 100 mls/hr Levothyroxine Sodium (Synthroid) 75 mcg PO DAILY@0630 [facility] Last Admin: 09/01/17 05:45 Dose: 75 mcg Metoprolol Tartrate (Lopressor) 25 mg PO BID [facility] Last Admin: 08/31/17 20:22 Dose: Not Given Rosuvastatin Calcium (Crestor) 20 mg PO HS [facility] Last Admin: 08/31/17 22:38 Dose: 20 mg - Labs Labs: 08/31/17 08:22 08/31/17 08:22 PT 11.7 SECONDS (9.7-12.2) 08/31/17 11:43 INR 1.0 08/31/17 11:43 APTT 35 SECONDS (21-34) H 08/30/17 11:11 - Additional Findings Additional findings: - Constitutional Appears: No Acute Distress - Head Exam Head Exam: ATRAUMATIC, NORMAL INSPECTION, some periorbital swelling noted - Eye Exam Eye Exam: EOMI, Normal appearance - ENT Exam ENT Exam: Mucous Membranes Moist - Neck Exam Neck exam: Negative for: Lymphadenopathy, Tenderness, Thyromegaly - Respiratory Exam Respiratory Exam: Clear to Auscultation Bilateral, NORMAL BREATHING PATTERN. absent: Rales, Rhonchi, Wheezes, Respiratory Distress - Cardiovascular Exam Cardiovascular Exam: REGULAR RHYTHM, RRR, +S1, +S2. absent: Rubs - GI/Abdominal Exam GI & Abdominal Exam: Normal Bowel Sounds, Soft. absent: Distended, Mass, Tenderness - Extremities Exam Extremities exam: Positive for: normal inspection, pedal pulses present. Negative for: calf tenderness, pedal edema, tenderness - Neurological Exam Neurological exam: Alert, Oriented x3 - Psychiatric Exam Psychiatric exam: Normal Affect, Normal Mood - Skin Skin Exam: Dry, Intact, Normal Color, Warm Assessment and Plan - Assessment and Plan (Free Text) Plan: Pericardial effusion NSTEMI * Cardiology consulted -Dr. Olea- donna appreciated * Chest CT: [id number] pericardial effusion. No evidence of pneumonia or mass lesion in the lungs. * Echo: Showed moderate pericardial effusion, reduced LV function, collapsing RV. Pending official read * Patient transferred to [facility] for Cardiac Cath with Dr. Olea - s/p RHCx and LHCx with PCI for chest pain and pericardial effusion * f/u Dr. Olea reccs * ASA 81mg PO daily * Plavix 75mg PO daily * Crestor 20mg PO QHS * Metoprolol 12.5mg PO BID - continue to monitor, patient had a hypotensive event yesterday x2 Hypothyroidism * Right sided, thyromegaly * TSH - 38.40, Free T4 - 0.07 * ESR - 27, CRP 3.6 * Thyroid US 08/31/17: A small thyroid gland is appreciate with diffusely inhomogeneous echotexture. Tiny nodules are not excluded bilaterally though no dominant masses appreciated either lobe or the isthmus in particular. Clinical and potential sonographic follow-up are advised. If there is clinical concern for right-sided neck lesion further then follow-up neck CT with contrast may be helpful for additional characterization of the neck. * Endocrinology consulted - Dr. Huizar - help appreciated * Given Synthroid 100mcg IV one time dose * Was started on Synthroid - 75mcg PO daily * Autoimmune workup ordered - will follow up results and recommendations by Dr. Huizar Hyperlipidemia * T , LDL:337, Choles:484, HDL: 68 * Hga1c (08/2017): 5.6 * Recommended lifestyle and diet modifications to prevent patient from becoming overt diabetic * Crestor 20mg PO QHS Prophylactic measure * GI PPX:Pepcid 20mg PO daily * DVT PPX: SCDs, Heparin Q12 * Heart healthy diet * Social work- to help patient apply for [facility] IGOR Jeffery DO, PGY-1 <David Gutierrez - Last Filed: 09/01/17 15:28> Objective - Vital Signs/Intake and Output Vital Signs (last 24 hours): Temp Pulse Resp BP Pulse Ox 98.2 F 68 20 106/73 98 09/01/17 07:00 09/01/17 12:00 09/01/17 07:00 09/01/17 10:28 09/01/17 07:00 Intake and Output: 09/01/17 09/01/17 06:59 18:59 Intake Total 800 Balance 800 - Medications Medications: Current Medications Aspirin (Aspirin Chewable) 81 mg PO DAILY [facility] Last Admin: 09/01/17 10:28 Dose: 81 mg Clopidogrel Bisulfate (Plavix) 75 mg PO DAILY [facility] Last Admin: 09/01/17 10:28 Dose: 75 mg Heparin Sodium (Porcine) (Heparin) 5,000 units SC Q12 [facility] Last Admin: 09/01/17 10:28 Dose: 5,000 units Sodium Chloride (Sodium Chloride 0.9%) 1,000 mls @ 100 mls/hr IV .Q10H [facility] Last Admin: 09/01/17 05:44 Dose: 100 mls/hr Levothyroxine Sodium (Synthroid) 75 mcg PO DAILY@0630 [facility] Last Admin: 09/01/17 05:45 Dose: 75 mcg Metoprolol Tartrate (Lopressor) 12.5 mg PO BID [facility] Rosuvastatin Calcium (Crestor) 20 mg PO HS [facility] Last Admin: 08/31/17 22:38 Dose: 20 mg - Labs Labs: 09/01/17 07:26 09/01/17 07:26 PT 11.7 SECONDS (9.7-12.2) 08/31/17 11:43 INR 1.0 08/31/17 11:43 APTT 35 SECONDS (21-34) H 08/30/17 11:11 Attending/Attestation - Attestation I have personally seen and examined this patient.: Yes I have fully participated in the care of the patient.: Yes I have reviewed all pertinent clinical information, including history, physical exam and plan: Yes Notes (Text): Patient was seen and examined this morning with resident.Has no complain.Ambulating in her room,Denies dizziness.S/P hypotension last night 1. NE,s/p RHCx and LHCx ,s/p cardiac stent continue asprin and plavix.On Statin,metorpolol s/p hypotension.Denies any dizziness.HER BP remains good this afternoon.HR aroun 70ies.Metoprolol reduced to 12.5mg BID 2. Pericardial effusion Small to medium sized effusion seen on chest CT - Echo showed moderate pericardial effusion, reduced LV function, collapsing RV, no signs of tamponade ESR and CRP elevated 3. Hyperlipidemia continue statin 4. HTN monitor BP,on beta gloria 5. Hypothyroidism Pt does not have a history of hypothyroidism; TSH elevated, Free T4 low.Seen by Dr Huizar and started on Levothyroxin. Help appreciated
[2017-09-01] MEDS ORDERED: Levothyroxine 75 MCG TAB PO SCH (06:30)
[2017-09-01 07:44] LABS: BASO # 0.1 K/uL (0.0-0.2); BASO % 1.3 % (0.0-2.0); EOS # 0.1 K/uL (0.0-0.7); EOS % 2.9 % (0.0-4.0); LYMPH # 1.3 K/uL (1.0-4.3); LYMPH % 25.8 % (20.0-40.0); MEAN CELL VOLUME 95.1 fL (81.0-99.0); MEAN CORPUSCULAR HEMOGLOBIN 32.7 pg (27.0-31.0); MEAN CORPUSCULAR HGB CONC 34.4 g/dL (33.0-37.0); MEAN PLATELET VOLUME 10.3 fL (7.2-11.7); MONO # 0.4 K/uL (0.0-0.8); MONO % 6.8 % (0.0-10.0); RED CELL DISTRIBUTION WIDTH 14.4 % (11.5-14.5); WHITE BLOOD COUNT 5.2 K/uL (4.8-10.8)
[2017-09-01 07:48] LABS: CHLORIDE 104 mmol/L (98-107); POTASSIUM 3.9 mmol/L (3.6-5.2); SODIUM 135 mmol/L (132-148)
[2017-09-01 07:50] LABS: GFR AFRICAN-AMERICAN > 60
[2017-09-01 07:51] LABS: ALB/GLOB RATIO 1.2 (1.0-2.1); ALKALINE PHOSPHATASE 38 U/L (38-126); ALT/SGPT 34 U/L (9-52); AST/SGOT 126 U/L (14-36); BILIRUBIN,TOTAL 0.6 mg/dL (0.2-1.3); BLOOD UREA NITROGEN 14 mg/dL (7-17); CALCIUM 8.3 mg/dl (8.6-10.4); CARBON DIOXIDE 22 mmol/L (22-30); GLUCOSE,RANDOM 68 mg/dL (65-105); MAGNESIUM 1.9 mg/dL (1.6-2.3); PHOSPHOROUS 2.7 mg/dL (2.5-4.5)
--- NOTE | 2017-09-01 15:35 | CP.PCM.PN ---
<HARJIT DEL CASTILLO - Last Filed: 09/01/17 15:32> Subjective - Date & Time of Evaluation Date of Evaluation: 09/01/17 Time of Evaluation: 07:45 - Subjective Subjective: Harjit Del Castillo DO PGY1 - Cardiology Progress Note for Dr. Olea Patient seen and examined at bedside, no events overnight. Patient now denies chest pain or SOB. She now appears more awake and alert, compared to previously when she was always lying in bed, sleeping. Patient had one episode of borderline hypotension yesterday, though was asymptomatic and stable. Objective - Vital Signs/Intake and Output Vital Signs (last 24 hours): Temp Pulse Resp BP Pulse Ox 98.2 F 68 20 106/73 98 09/01/17 07:00 09/01/17 12:00 09/01/17 07:00 09/01/17 10:28 09/01/17 07:00 Intake and Output: 09/01/17 09/01/17 06:59 18:59 Intake Total 800 1100 Balance 800 1100 - Medications Medications: Current Medications Aspirin (Aspirin Chewable) 81 mg PO DAILY [facility] Last Admin: 09/01/17 10:28 Dose: 81 mg Clopidogrel Bisulfate (Plavix) 75 mg PO DAILY [facility] Last Admin: 09/01/17 10:28 Dose: 75 mg Heparin Sodium (Porcine) (Heparin) 5,000 units SC Q12 [facility] Last Admin: 09/01/17 10:28 Dose: 5,000 units Sodium Chloride (Sodium Chloride 0.9%) 1,000 mls @ 100 mls/hr IV .Q10H [facility] Last Admin: 09/01/17 14:52 Dose: Not Given Levothyroxine Sodium (Synthroid) 100 mcg PO Q24H [facility] Metoprolol Tartrate (Lopressor) 12.5 mg PO BID [facility] Rosuvastatin Calcium (Crestor) 20 mg PO HS [facility] Last Admin: 08/31/17 22:38 Dose: 20 mg - Labs Labs: 09/01/17 07:26 09/01/17 07:26 PT 11.7 SECONDS (9.7-12.2) 08/31/17 11:43 INR 1.0 08/31/17 11:43 APTT 35 SECONDS (21-34) H 08/30/17 11:11 - Constitutional Appears: Non-toxic, No Acute Distress - Head Exam Head Exam: ATRAUMATIC, NORMOCEPHALIC - Eye Exam Eye Exam: EOMI, Normal appearance - ENT Exam ENT Exam: Mucous Membranes Moist - Neck Exam Neck Exam: Normal Inspection Additional comments: No JVD - Respiratory Exam Respiratory Exam: Clear to Ausculation Bilateral, NORMAL BREATHING PATTERN. absent: Rales, Rhonchi, Wheezes - Cardiovascular Exam Cardiovascular Exam: RRR, +S1, +S2 - GI/Abdominal Exam GI & Abdominal Exam: Soft. absent: Tenderness - Extremities Exam Extremities Exam: Pedal Edema (trace). absent: Calf Tenderness - Neurological Exam Neurological Exam: Alert, Awake, Oriented x3 - Psychiatric Exam Psychiatric exam: Normal Affect, Normal Mood - Skin Skin Exam: Dry, Intact Assessment and Plan - Assessment and Plan (Free Text) Assessment: 57 yo F with PMH of HTN presents for CP, noted to have pericardial effusion on chest CT, and subsequent elevation in cardiac enzymes; now noted to have hypothyroidism, and is s/p PCI Plan: 1. Pericardial effusion - Small to medium sized effusion seen on chest CT - Echo showed moderate pericardial effusion, reduced LV function, collapsing RV , no signs of tamponade - Likely 2/2 hypothyroidism vs AK vs pericarditis - Patient likely had underlying pericardial effusion 2/2 chronic, undiagnosed hypothyroidism, which was acutely worsened with NSTEMI which made her preload dependant - ESR and CRP elevated; Autoimmune workup ordered, pending - TSH 38.4; total and free T4 low - Patient is s/p RHCx and LHCx; pericardiocentesis not done; RHCx did not demonstrate elevated filling pressures or tamponade physiology - Repeat echo tomorrow to reassess LV function and status of pericardial effusion 2. Chest pain, 2/2 NSTEMI - Patient presented with typical chest pain, but no associated symptoms, and few risk factors - Patient no longer having any chest pain or shortness of breath - ST depressions noted in lateral leads on EKG - CK and CKMB elevated in ER, trended up; Troponin normal initially, continued to trend up throughout the day - Patient s/p LHCx which demonstrated 100% calcified occlusion in proximal left circumflex artery, ruptured plaque in proximal LAD and occlusive thrombus in distal LAD; subsequent PCI with [id number] LAD JAZMINE placement and PTCA with intracoronary integrilin and POBA of distal LAD - Continue ASA, plavix, BB, statin 3. Hyperlipidemia - Lipid panel done yesterday, shows elevated total cholesterol, LDL, and triglycerides, but good HDL - Continue statin, as above 4. HTN - BP currently stable - Continue BB - Continue to monitor and titrate meds as needed 5. Hypothyroidism - Pt does not have a history of hypothyroidism; TSH elevated, total and free T4 low - Endocrinology (Dr. Huizar) on consult, appreciate recs - Treatment as per Dr. Huizar and primary team Patient seen, discussed, and reviewed with attending <Kolby Olea - Last Filed: 09/01/17 16:20> Objective - Vital Signs/Intake and Output Vital Signs (last 24 hours): Temp Pulse Resp BP Pulse Ox 98.2 F 68 20 106/73 98 09/01/17 07:00 09/01/17 12:00 09/01/17 07:00 09/01/17 10:28 09/01/17 07:00 Intake and Output: 09/01/17 09/01/17 06:59 18:59 Intake Total 800 1100 Balance 800 1100 - Medications Medications: Current Medications Aspirin (Aspirin Chewable) 81 mg PO DAILY [facility] Last Admin: 09/01/17 10:28 Dose: 81 mg Clopidogrel Bisulfate (Plavix) 75 mg PO DAILY [facility] Last Admin: 09/01/17 10:28 Dose: 75 mg Heparin Sodium (Porcine) (Heparin) 5,000 units SC Q12 [facility] Last Admin: 09/01/17 10:28 Dose: 5,000 units Sodium Chloride (Sodium Chloride 0.9%) 1,000 mls @ 100 mls/hr IV .Q10H [facility] Last Admin: 09/01/17 14:52 Dose: Not Given Levothyroxine Sodium (Synthroid) 100 mcg PO Q24H [facility] Metoprolol Tartrate (Lopressor) 12.5 mg PO BID [facility] Rosuvastatin Calcium (Crestor) 20 mg PO HS [facility] Last Admin: 08/31/17 22:38 Dose: 20 mg - Labs Labs: 09/01/17 07:26 09/01/17 07:26 PT 11.7 SECONDS (9.7-12.2) 08/31/17 11:43 INR 1.0 08/31/17 11:43 APTT 35 SECONDS (21-34) H 08/30/17 11:11 Attending/Attestation - Attestation I have personally seen and examined this patient.: Yes I have fully participated in the care of the patient.: Yes I have reviewed all pertinent clinical information, including history, physical exam and plan: Yes Notes (Text): 09/01/17 16:17 pt seen and examined at bedside trace LE edema no JVP breathing comfortably no CP BP and HR stable plan for repeat echo in am cont DAPT cont low dose BB cont high dose statins
--- NOTE | 2017-09-01 16:12 | PN ---
ENDOCRINOLOGY FOLLOWUP NOTE LOCATION: Room #662. SUBJECTIVE: This is a 57-year-old female with overt hypothyroidism and now being followed closely for metabolic management. She received parenteral levothyroxine, given as 100 mcg IV push yesterday as a stat dose and today has been started on oral levothyroxine, given as 75 mcg daily as ordered. Her latest chemistry showed the BUN of 14, sodium 135, potassium 3.9, chloride 104, CO2 of 22, glucose 68, and creatinine 1.1. Her troponin level now is 39.30. The latest thyroid study showed the T4 of 1.50 with a TSH of 39.10 and a free T4 of 0.10. So at this time, we will increase and modify her levothyroxine therapy for higher dose of 100 mcg once daily every morning before breakfast as ordered. We will obtain serial chemistries and supplement accordingly as needed. We will also obtain serial thyroid studies and titrate the dose regimen accordingly. We will also obtain thyroid antibodies which will confirm and indicate the presence of thyroid autoimmunity. We will follow. Padmini Huizar MD
--- NOTE | 2017-09-01 22:52 | CARD ---
APPROVED REPORT EKG Measurement Heart [id number] <Conclusion> Normal sinus rhythm Anterior infarct, age undetermined ST & T wave abnormality, consider inferolateral ischemia Abnormal ECG
--- NOTE | 2017-09-01 22:56 | CARD ---
APPROVED REPORT EKG Measurement Heart [id number] <Conclusion> Normal sinus rhythm Anteroseptal infarct, age undetermined ST & T wave abnormality, consider inferior ischemia Abnormal ECG
[2017-09-02 00:17] VITALS: RESP 20
[2017-09-02] MEDS: Sodium Chloride 0.9% 1,000 ML IV SCH ×3 (04:58→18:15)
[2017-09-02 05:37] LABS: B2 GLYCOPROTEIN I AB(IGA) <9 SAU (<=20); B2 GLYCOPROTEIN I AB(IGG) <9 SGU (<=20); B2 GLYCOPROTEIN I AB(IGM) <9 SMU (<=20)
[2017-09-02] MEDS ORDERED: Levothyroxine 100 MCG TAB PO SCH (06:30)
[2017-09-02 06:49] LABS: PHOSPHATIDYLSERINE AB IGA <20 U/mL (<20); PHOSPHATIDYLSERINE AB IGM <25 U/mL (<25)
[2017-09-02 07:32] LABS: BASO % 0.9 % (0.0-2.0); EOS # 0.2 K/uL (0.0-0.7); EOS % 3.3 % (0.0-4.0); HEMATOCRIT 31.3 % (34.0-47.0); LYMPH # 1.2 K/uL (1.0-4.3); LYMPH % 25.6 % (20.0-40.0); MEAN CELL VOLUME 95.4 fL (81.0-99.0); MEAN CORPUSCULAR HEMOGLOBIN 32.6 pg (27.0-31.0); MEAN CORPUSCULAR HGB CONC 34.1 g/dL (33.0-37.0); MEAN PLATELET VOLUME 10.3 fL (7.2-11.7); MONO # 0.3 K/uL (0.0-0.8); NRBC % 0.1 % (0.0-2.0); RED CELL DISTRIBUTION WIDTH 14.4 % (11.5-14.5); WHITE BLOOD COUNT 4.6 K/uL (4.8-10.8)
[2017-09-02 07:56] LABS: CHLORIDE 104 mmol/L (98-107)
[2017-09-02 07:57] LABS: POTASSIUM 3.8 mmol/L (3.6-5.2); SODIUM 135 mmol/L (132-148)
[2017-09-02 07:58] LABS: CARDIOLIPIN AB (IGA) <11 APL (<=11)
[2017-09-02 07:59] LABS: ALB/GLOB RATIO 1.2 (1.0-2.1); ALKALINE PHOSPHATASE 35 U/L (38-126); AST/SGOT 102 U/L (14-36); BILIRUBIN,TOTAL 0.5 mg/dL (0.2-1.3); BLOOD UREA NITROGEN 13 mg/dL (7-17); CARBON DIOXIDE 24 mmol/L (22-30); GFR AFRICAN-AMERICAN > 60; GLUCOSE,RANDOM 74 mg/dL (65-105); PHOSPHOROUS 2.9 mg/dL (2.5-4.5); TOTAL PROTEIN 6.8 g/dL (6.3-8.3)
[2017-09-02 08:00] LABS: ALT/SGPT 34 U/L (9-52); CALCIUM 8.2 mg/dl (8.6-10.4); MAGNESIUM 1.8 mg/dL (1.6-2.3)
[2017-09-02 08:11] LABS: T4 1.52 ug/dL (5.5-11.0)
--- NOTE | 2017-09-02 11:50 | CP.PCM.PN ---
<HARJIT DEL CASTILLO - Last Filed: 09/02/17 17:21> Subjective - Date & Time of Evaluation Date of Evaluation: 09/02/17 Time of Evaluation: 07:15 - Subjective Subjective: Harjit Del Castillo DO PGY1 - Cardiology Progress Note for Dr. Olea Patient seen and examined at bedside. No events overnight. Patient now denies any chest pain or shortness of breath, no palpitations. Patient is seen awake and alert, walking around her room. Objective - Vital Signs/Intake and Output Vital Signs (last 24 hours): Temp Pulse Resp BP Pulse Ox 97.5 F L 91 H 20 108/78 100 09/02/17 09:04 09/02/17 10:55 09/02/17 09:04 09/02/17 10:55 09/02/17 09:04 Intake and Output: 09/02/17 09/02/17 06:59 18:59 Intake Total 800 Balance 800 - Medications Medications: Current Medications Aspirin (Aspirin Chewable) 81 mg PO DAILY [facility] Last Admin: 09/02/17 10:56 Dose: 81 mg Clopidogrel Bisulfate (Plavix) 75 mg PO DAILY [facility] Last Admin: 09/02/17 10:55 Dose: 75 mg Heparin Sodium (Porcine) (Heparin) 5,000 units SC Q12 [facility] Last Admin: 09/02/17 10:56 Dose: 5,000 units Sodium Chloride (Sodium Chloride 0.9%) 1,000 mls @ 100 mls/hr IV .Q10H [facility] Last Admin: 09/02/17 04:58 Dose: 100 mls/hr Levothyroxine Sodium (Synthroid) 100 mcg PO Q24H [facility] Last Admin: 09/02/17 06:21 Dose: 100 mcg Metoprolol Tartrate (Lopressor) 12.5 mg PO BID [facility] Last Admin: 09/02/17 10:55 Dose: 12.5 mg Rosuvastatin Calcium (Crestor) 20 mg PO HS [facility] Last Admin: 09/01/17 21:45 Dose: 20 mg - Labs Labs: 09/02/17 07:17 09/02/17 07:17 PT 11.7 SECONDS (9.7-12.2) 08/31/17 11:43 INR 1.0 08/31/17 11:43 APTT 35 SECONDS (21-34) H 10/09/17 11:11 - Constitutional Appears: Non-toxic, No Acute Distress - Head Exam Head Exam: ATRAUMATIC, NORMOCEPHALIC - Eye Exam Eye Exam: EOMI, Normal appearance - ENT Exam ENT Exam: Mucous Membranes Moist - Respiratory Exam Respiratory Exam: Clear to Ausculation Bilateral, NORMAL BREATHING PATTERN. absent: Rales, Rhonchi, Wheezes - Cardiovascular Exam Cardiovascular Exam: RRR, +S1, +S2. absent: JVD - GI/Abdominal Exam GI & Abdominal Exam: Soft. absent: Tenderness - Extremities Exam Extremities Exam: absent: Calf Tenderness, Pedal Edema - Neurological Exam Neurological Exam: Alert, Awake, Oriented x3 - Psychiatric Exam Psychiatric exam: Normal Affect, Normal Mood - Skin Skin Exam: Dry, Intact Assessment and Plan - Assessment and Plan (Free Text) Assessment: 57 yo F with PMH of HTN presents for CP, noted to have pericardial effusion on chest CT, and subsequent elevation in cardiac enzymes; now noted to have hypothyroidism, and is s/p PCI Plan: 1. Pericardial effusion - Small to medium sized effusion seen on chest CT - Echo showed moderate pericardial effusion, reduced LV function, collapsing RV , no signs of tamponade - Likely 2/2 hypothyroidism vs [place] vs pericarditis - Patient likely had underlying pericardial effusion 2/2 chronic, undiagnosed hypothyroidism, which was acutely worsened with NSTEMI which made her preload dependant - ESR and CRP elevated; Autoimmune workup negative so far - TSH 38.4; total and free T4 low - Patient is s/p RHCx and LHCx; pericardiocentesis not done; RHCx did not demonstrate elevated filling pressures or tamponade physiology - Repeat echo today done, pending images 2. Chest pain, 2/2 NSTEMI - Patient presented with typical chest pain, but no associated symptoms, and few risk factors - Patient no longer having any chest pain or shortness of breath - ST depressions noted in lateral leads on EKG - CK and CKMB elevated in ER, trended up; Troponin normal initially, continued to trend up throughout the day - Patient s/p LHCx which demonstrated 100% calcified occlusion in proximal left circumflex artery, ruptured plaque in proximal LAD and occlusive thrombus in distal LAD; subsequent PCI with [id number] LAD JAZMINE placement and PTCA with intracoronary integrilin and POBA of distal LAD - Continue ASA, plavix, BB, statin 3. Hyperlipidemia - Lipid panel done yesterday, shows elevated total cholesterol, LDL, and triglycerides, but good HDL - Continue statin, as above 4. HTN - BP currently stable - Continue BB; reduced dose yesterday after episode of borderline hypotension - Continue to monitor and titrate meds as needed 5. Hypothyroidism - Pt does not have a history of hypothyroidism; TSH elevated, total and free T4 low - Endocrinology (Dr. Huizar) on consult, appreciate recs - Treatment as per Dr. Huizar and primary team Patient seen, discussed, and reviewed with attending <Kolby Olea - Last Filed: 09/15/17 14:29> Objective - Vital Signs/Intake and Output Vital Signs (last 24 hours): Temp Pulse Resp BP Pulse Ox 98.0 F 78 20 120/84 99 09/03/17 15:08 09/03/17 15:08 09/03/17 15:08 09/03/17 15:08 09/03/17 15:08 - Labs Labs: 09/03/17 07:07 09/03/17 07:07 PT 11.7 SECONDS (9.7-12.2) 08/31/17 11:43 INR 1.0 08/31/17 11:43 APTT 35 SECONDS (21-34) H 08/30/17 11:11 Attending/Attestation - Attestation I have personally seen and examined this patient.: Yes I have fully participated in the care of the patient.: Yes I have reviewed all pertinent clinical information, including history, physical exam and plan: Yes
--- NOTE | 2017-09-02 17:50 | CP.PCM.PN ---
<Joseph Kirk - Last Filed: 09/02/17 17:59> Subjective - Date & Time of Evaluation Date of Evaluation: 09/02/17 Time of Evaluation: 07:00 - Subjective Subjective: PGY-[address] Gutierrez Patient seen and examined at bedside. Patient reports feeling fine. Patient denies fever, chills, chest pain, dyspnea, abdominal pain, dysuria. Objective - Vital Signs/Intake and Output Vital Signs (last 24 hours): Temp Pulse Resp BP Pulse Ox 98.0 F 85 20 117/85 100 09/02/17 15:06 09/02/17 15:30 09/02/17 15:06 09/02/17 15:06 09/02/17 15:06 Intake and Output: 09/02/17 09/02/17 06:59 18:59 Intake Total 800 1100 Balance 800 1100 - Medications Medications: Current Medications Aspirin (Aspirin Chewable) 81 mg PO DAILY [facility] Last Admin: 09/02/17 10:56 Dose: 81 mg Clopidogrel Bisulfate (Plavix) 75 mg PO DAILY [facility] Last Admin: 09/02/17 10:55 Dose: 75 mg Heparin Sodium (Porcine) (Heparin) 5,000 units SC Q12 [facility] Last Admin: 09/02/17 10:56 Dose: 5,000 units Sodium Chloride (Sodium Chloride 0.9%) 1,000 mls @ 100 mls/hr IV .Q10H [facility] Last Admin: 09/02/17 09:15 Dose: Not Given Levothyroxine Sodium (Synthroid) 125 mcg PO DAILY@0630 [facility] Metoprolol Tartrate (Lopressor) 12.5 mg PO BID [facility] Last Admin: 09/02/17 10:55 Dose: 12.5 mg Rosuvastatin Calcium (Crestor) 20 mg PO HS [facility] Last Admin: 09/01/17 21:45 Dose: 20 mg - Labs Labs: 09/02/17 07:17 09/02/17 07:17 PT 11.7 SECONDS (9.7-12.2) 08/31/17 11:43 INR 1.0 08/31/17 11:43 APTT 35 SECONDS (21-34) H 08/30/17 11:11 - Constitutional Appears: No Acute Distress - Head Exam Head Exam: ATRAUMATIC, NORMOCEPHALIC - Eye Exam Eye Exam: EOMI, PERRL Additional comments: some periorbital swelling - ENT Exam ENT Exam: Mucous Membranes Moist - Respiratory Exam Respiratory Exam: Clear to Ausculation Bilateral, NORMAL BREATHING PATTERN. absent: Rales, Rhonchi, Wheezes - Cardiovascular Exam Cardiovascular Exam: REGULAR RHYTHM, +S1, +S2 - GI/Abdominal Exam GI & Abdominal Exam: Soft, Normal Bowel Sounds. absent: Tenderness - Extremities Exam Extremities Exam: absent: Calf Tenderness, Pedal Edema - Neurological Exam Neurological Exam: Alert, Awake, Oriented x3 - Psychiatric Exam Psychiatric exam: Normal Affect, Normal Mood - Skin Skin Exam: Dry, Intact, Normal Color, Warm Assessment and Plan - Assessment and Plan (Free Text) Plan: Pericardial effusion NSTEMI * Cardiology consulted -Dr. Olea- donna appreciated * Chest CT: [id number] pericardial effusion. No evidence of pneumonia or mass lesion in the lungs. * Echo: Showed moderate pericardial effusion, reduced LV function, collapsing RV. Pending official read * Patient transferred to [place] for Cardiac Cath with Dr. Olea - s/p RHCx and LHCx with PCI for chest pain and pericardial effusion * f/u Dr. Olea reccs * ASA 81mg PO daily * Plavix 75mg PO daily * Crestor 20mg PO QHS * Metoprolol 12.5mg PO BID - continue to monitor, patient had a hypotensive event yesterday x2 Pending Dr. Olea's recommendations after images from repeat echocardiogram. Hypothyroidism * Right sided, thyromegaly * TSH - 38.40, Free T4 - 0.07 * ESR - 27, CRP 3.6 * Thyroid US 08/31/17: A small thyroid gland is appreciate with diffusely inhomogeneous echotexture. Tiny nodules are not excluded bilaterally though no dominant masses appreciated either lobe or the isthmus in particular. Clinical and potential sonographic follow-up are advised. If there is clinical concern for right-sided neck lesion further then follow-up neck CT with contrast may be helpful for additional characterization of the neck. * Endocrinology consulted - Dr. Huizar - help appreciated * Given Synthroid 100mcg IV one time dose * Was started on Synthroid - 75mcg PO daily * Dr. Huizar increased to 125 mcg PO daily * Autoimmune workup ordered - will follow up results and recommendations by Dr. Huizar * Autoimmune workup by Dr. Huizar negative. * Protein C&S antigen, factor 5 leiden ordered. Hyperlipidemia * T , LDL:337, Choles:484, HDL: 68 * Hga1c (08/2017): 5.6 * Recommended lifestyle and diet modifications to prevent patient from becoming overt diabetic * Crestor 20mg PO QHS Prophylactic measure * GI PPX:Pepcid 20mg PO daily * DVT PPX: SCDs, Heparin Q12 * Heart healthy diet * Social work- to help patient apply for [facility] care Case DW Dr. Brenda Kirk PGY-1 <David Gutierrez - Last Filed: 09/02/17 19:35> Objective - Vital Signs/Intake and Output Vital Signs (last 24 hours): Temp Pulse Resp BP Pulse Ox 98.0 F 78 20 106/73 100 09/02/17 15:06 09/02/17 18:41 09/02/17 15:06 09/02/17 18:41 09/02/17 15:06 Intake and Output: 09/02/17 09/03/17 18:59 06:59 Intake Total 1100 Balance 1100 - Medications Medications: Current Medications Aspirin (Aspirin Chewable) 81 mg PO DAILY [facility] Last Admin: 09/02/17 10:56 Dose: 81 mg Clopidogrel Bisulfate (Plavix) 75 mg PO DAILY [facility] Last Admin: 09/02/17 10:55 Dose: 75 mg Heparin Sodium (Porcine) (Heparin) 5,000 units SC Q12 [facility] Last Admin: 09/02/17 10:56 Dose: 5,000 units Sodium Chloride (Sodium Chloride 0.9%) 1,000 mls @ 100 mls/hr IV .Q10H [facility] Last Admin: 09/02/17 09:15 Dose: Not Given Levothyroxine Sodium (Synthroid) 125 mcg PO DAILY@0630 [facility] Metoprolol Tartrate (Lopressor) 12.5 mg PO BID [facility] Last Admin: 09/02/17 18:40 Dose: 12.5 mg Rosuvastatin Calcium (Crestor) 20 mg PO HS [facility] Last Admin: 09/01/17 21:45 Dose: 20 mg - Labs Labs: 09/02/17 07:17 09/02/17 07:17 PT 11.7 SECONDS (9.7-12.2) 08/31/17 11:43 INR 1.0 08/31/17 11:43 APTT 35 SECONDS (21-34) H 08/30/17 11:11 Attending/Attestation - Attestation I have personally seen and examined this patient.: Yes I have fully participated in the care of the patient.: Yes I have reviewed all pertinent clinical information, including history, physical exam and plan: Yes Notes (Text): 09/02/17 19:33 Patient was seen and examined with resident.Notes reviewed She is feeling better.Repeat echo report pending.Synthroid dose was increased by patient access coordinator 09/02/17 19:34
--- NOTE | 2017-09-02 21:03 | PN ---
ENDOCRINOLOGY FOLLOWUP NOTE DATE: LOCATION: Room 662. SUBJECTIVE: This is a 57-year-old female with recent overt hypothyroidism notable historically, clinically, and by chemically, most likely related to underlying autoimmune thyroiditis and is now being followed closely for metabolic management. She received parenteral levothyroxine, given as 100 mcg initially on admission and since then been placed on oral levothyroxine therapy as tolerated and given. Her latest chemistry showed BUN of 13, sodium 135, potassium 3.8, chloride 104, CO2 of 24, glucose 74, and creatinine 1.1. Her repeat thyroid showed a TSH of 40.50 with free T4 of 0.08 and total T4 of 1.52. So at this time, we will titrate once again her levothyroxine to a dose regimen of 125 mcg a.c. breakfast as ordered. We will titrate incrementally as indicated to optimize metabolic control. We will also obtain serial chemistries and supplement accordingly as needed. She can also be cleared for discharge if medically and clinically stable at this time. Lifelong levothyroxine replacement therapy has been reinforced with the patient at bedside. She will follow with a medical doctor for outpatient medical and thyroid management. Would recommend a repeat T4 and TSH in 6 weeks to adjust dose regimen accordingly. We will continue higher dose of levothyroxine 125 mcg daily as ordered. We will follow. Padmini Huizar MD
[2017-09-03] MEDS: Sodium Chloride 0.9% 1,000 ML IV SCH (04:51)
[2017-09-03] MEDS ORDERED: Levothyroxine 125 MCG TAB PO SCH (06:30)
[2017-09-03 07:20] LABS: BASO # 0.1 K/uL (0.0-0.2); BASO % 1.8 % (0.0-2.0); EOS # 0.2 K/uL (0.0-0.7); EOS % 3.3 % (0.0-4.0); HEMATOCRIT 31.3 % (34.0-47.0); LYMPH # 1.1 K/uL (1.0-4.3); LYMPH % 22.6 % (20.0-40.0); MEAN CELL VOLUME 95.6 fL (81.0-99.0); MEAN CORPUSCULAR HEMOGLOBIN 32.5 pg (27.0-31.0); MEAN CORPUSCULAR HGB CONC 33.9 g/dL (33.0-37.0); MEAN PLATELET VOLUME 10.1 fL (7.2-11.7); MONO # 0.3 K/uL (0.0-0.8); MONO % 7.1 % (0.0-10.0); RED CELL DISTRIBUTION WIDTH 14.6 % (11.5-14.5); WHITE BLOOD COUNT 4.8 K/uL (4.8-10.8)
[2017-09-03 07:45] LABS: ALB/GLOB RATIO 1.3 (1.0-2.1); BILIRUBIN,TOTAL 0.5 mg/dL (0.2-1.3); TOTAL PROTEIN 6.9 g/dL (6.3-8.3)
[2017-09-03 07:46] LABS: CALCIUM 8.7 mg/dl (8.6-10.4); MAGNESIUM 1.8 mg/dL (1.6-2.3); PHOSPHOROUS 3.4 mg/dL (2.5-4.5)
[2017-09-03 07:50] LABS: POTASSIUM 4.1 mmol/L (3.6-5.2)
--- NOTE | 2017-09-03 10:07 | CP.PCM.DIS ---
<Joseph Kirk - Last Filed: 09/03/17 17:47> Provider - Provider Date of Admission: 08/30/17 10:47 Attending physician: David Gutierrez MD Consults: Dr. Olea-cardiology Dr. Huizar-endocrinology Time Spent in preparation of Discharge (in minutes): 40 Diagnosis - Discharge Diagnosis (1) Pericardial effusion Status: Acute (2) Hypothyroidism Status: Acute (3) Autoimmune thyroiditis Status: Acute (4) Systolic dysfunction with heart failure Status: Acute (5) Hyperlipidemia Status: Acute (6) Abnormal CPK Status: Acute (7) Renal insufficiency Status: Acute (8) Prophylactic measure Status: Acute Hospital Course - Lab Results Lab Results: Most Recent Lab Values WBC 4.8 K/uL (4.8-10.8) 09/03/17 07:07 RBC 3.27 Mil/uL (3.80-5.20) L 09/03/17 07:07 Hgb 10.6 g/dL (11.0-16.0) L 09/03/17 07:07 Hct 31.3 % (34.0-47.0) L 09/03/17 07:07 MCV 95.6 fL (81.0-99.0) 09/03/17 07:07 MCH 32.5 pg (27.0-31.0) H 09/03/17 07:07 MCHC 33.9 g/dL (33.0-37.0) 09/03/17 07:07 RDW 14.6 % (11.5-14.5) H 09/03/17 07:07 Plt Count 138 K/uL (130-400) 09/03/17 07:07 MPV 10.1 fL (7.2-11.7) 09/03/17 07:07 Neut % (Auto) 65.2 % (50.0-75.0) 09/03/17 07:07 Lymph % (Auto) 22.6 % (20.0-40.0) 09/03/17 07:07 Thayer % (Auto) 7.1 % (0.0-10.0) 09/03/17 07:07 Eos % (Auto) 3.3 % (0.0-4.0) 09/03/17 07:07 Baso % (Auto) 1.8 % (0.0-2.0) 09/03/17 07:07 Neut # 3.1 K/uL (1.8-7.0) 09/03/17 07:07 Lymph # 1.1 K/uL (1.0-4.3) 09/03/17 07:07 Thayer # 0.3 K/uL (0.0-0.8) 09/03/17 07:07 Eos # 0.2 K/uL (0.0-0.7) 09/03/17 07:07 Baso # 0.1 K/uL (0.0-0.2) 09/03/17 07:07 ESR 27 mm/hr (0-20) H 08/30/17 07:26 PT 11.7 SECONDS (9.7-12.2) 08/31/17 11:43 INR 1.0 08/31/17 11:43 APTT 35 SECONDS (21-34) H 08/30/17 11:11 Sodium 133 mmol/L (132-148) 09/03/17 07:07 Potassium 4.1 mmol/L (3.6-5.2) 09/03/17 07:07 Chloride 102 mmol/L (98-107) 09/03/17 07:07 Carbon Dioxide 25 mmol/L (22-30) 09/03/17 07:07 Anion Gap 10 (10-20) 09/03/17 07:07 BUN 13 mg/dL (7-17) 09/03/17 07:07 Creatinine 1.2 mg/dL (0.7-1.2) 09/03/17 07:07 Est GFR ( Amer) 56 09/03/17 07:07 Est GFR (Non-Af Amer) 46 09/03/17 07:07 Random Glucose 74 mg/dL (65-105) 09/03/17 07:07 Hemoglobin A1c 5.6 % (4.2-6.5) 08/31/17 10:00 Calcium 8.7 mg/dl (8.6-10.4) 09/03/17 07:07 Phosphorus 3.4 mg/dL (2.5-4.5) 09/03/17 07:07 Magnesium 1.8 mg/dL (1.6-2.3) 09/03/17 07:07 Total Bilirubin 0.5 mg/dL (0.2-1.3) 09/03/17 07:07 AST 92 U/L (14-36) H 09/03/17 07:07 ALT 34 U/L (9-52) 09/03/17 07:07 Alkaline Phosphatase 39 U/L (38-126) 09/03/17 07:07 Total Creatine Kinase 3044 U/L (30-135) H 08/30/17 07:26 CK-MB (Mass) 68.3 ng/mL (0.0-3.38) H 08/30/17 07:26 Troponin I 39.3000 ng/mL (0.00-0.120) H* 08/30/17 12:28 Troponin I, Quant 0.0420 ng/mL (0.00-0.120) 08/30/17 00:42 C-React Prot High Sens 3.63 mg/L (1.00-3.00) H 08/30/17 07:26 Total Protein 6.9 g/dL (6.3-8.3) 09/03/17 07:07 Albumin 3.9 g/dL (3.5-5.0) 09/03/17 07:07 Globulin 3.0 gm/dL (2.2-3.9) 09/03/17 07:07 Albumin/Globulin Ratio 1.3 (1.0-2.1) 09/03/17 07:07 Triglycerides 191 mg/dL (0-149) H 08/31/17 08:22 Cholesterol 484 mg/dL (0-199) H 08/31/17 08:22 LDL Cholesterol Direct 337 mg/dL (0-129) H 08/31/17 08:22 HDL Cholesterol 68 mg/dL (30-70) 08/31/17 08:22 Free T4 0.08 ng/dL (0.78-2.19) L 09/02/17 07:17 Thyroxine (T4) 1.52 ug/dL (5.5-11.0) L 09/02/17 07:17 TSH 3rd Generation 40.50 mIU/L (0.46-4.68) H 09/02/17 07:17 Urine Color Straw (YELLOW) 08/30/17 12:51 Urine Clarity Clear (Clear) 08/30/17 12:51 Urine pH 6.0 (5.0-8.0) 08/30/17 12:51 Ur Specific [place] 1.009 (1.003-1.030) 08/30/17 12:51 Urine Protein 1+ mg/dL (NEGATIVE) H 08/30/17 12:51 Urine Glucose (UA) Normal mg/dL (Normal) 08/30/17 12:51 Urine Ketones Negative mg/dL (NEGATIVE) 08/30/17 12:51 Urine Blood 1+ (NEGATIVE) H 08/30/17 12:51 Urine Nitrate Negative (NEGATIVE) 08/30/17 12:51 Urine Bilirubin Negative (NEGATIVE) 08/30/17 12:51 Urine Urobilinogen Normal mg/dL (0.2-1.0) 08/30/17 12:51 Ur Leukocyte Esterase Neg Sangita/uL (Negative) 08/30/17 12:51 Urine WBC (Auto) < 1 /hpf (0-5) 08/30/17 12:51 Rheum Arthritis Panel Negative (NEGATIVE) 08/30/17 07:26 Cycl Citrul Peptide IgG <16 Units (<20) 08/30/17 07:26 CAMERON 6 Profile Negative (NEGATIVE) 08/30/17 07:26 [id number]-2-[id number] Ab <9 JOSY (<=20) 08/30/17 07:26 Beta-2 GPI IgG Ab <9 SGU (<=20) 08/30/17 07:26 Beta-2 GPI IgM Ab <9 SMU (<=20) 08/30/17 07:26 Thyroperoxidase Ab 31 IU/mL (<9) H 09/01/17 07:26 Thyroglobulin Antibody 2 IU/mL (< OR = 1) H 09/01/17 07:26 Phosphatidylserine IgG <10 U/mL (<10) 08/30/17 07:26 Phosphatidylserine IgA <20 U/mL (<20) 08/30/17 07:26 Phosphatidylserine IgM <25 U/mL (<25) 08/30/17 07:26 Anti-Phospholipid Intrp see note 08/30/17 07:26 Anti-Cardiolipin IgG Ab <14 GPL (<=14) 08/30/17 07:26 Anti-Cardiolipin IgA Ab <11 APL (<=11) 08/30/17 07:26 Anti-Cardiolipin IgM Ab <12 MPL (<=12) 08/30/17 07:26 - Hospital Course Hospital Course: On admission: "Patient is a 57 year old female with a past medical history of hypertension, who presents to the ED with chest pain. Patient's chest pain started at 10pm at night. She states this is the first time she has had chest pain. Patient states the pain is parasternal and worsens with movement. Patient did not take any medications to try to relieve the pain. She reports the pain is now less than it was before arriving to the ED. Patient currently denies having difficulty breathing, palpitations, abdominal pain, nausea, vomiting, and fevers." Hospital Course: Patient admitted for chest pain with elevated CPK, myalgia, and abnormal EKG/ CXR. CXR ordered in ED showed enlarge cardiac silhouette. ST depressions noted in lateral leads on EKG. Echocardiogram noted systolic dysfunction with EF of 20-25%. In addition, there was pericardial effusion with diastolic collapse of the right atrium and ventricle. Troponins sharply uptrended positive. Catalogue Compiler Dr. Olea consulted. Patient underwent RHCx and LHCx with PCI for chest pain and pericardial effusion on 08/30/17. RHCx did not demonstrate elevated filling pressures or tamponade physiology. Per Dr. Olea, repeat echo shows 10-20% improvement in pericardial effusion but no change in her LVEF. Dividing Machine Operator Dr. Huizar consulted. TSH extremely elevated and free T4 markedly reduced. Immunology panels revealed elevated thyroperoxidase antibody at 31 and thyroglobulin antibody at 2. Per conversation with Dr. Huizar, this is indicative of autoimmune thyroiditis. Patient discharged on Synthroid 125 mcg daily and instructed to follow up with repeat testing in 6 weeks. Patient discharged on Aspirin, plavix, beta radha, and statin per cardiology recommendations and instructed to follow up with Dr. Olea in 2 weeks. At time of discharge, patient was pain free and able to ambulate. This is a summary of the hospital course. For more information, refer to the medical records. Discharge Exam - Head Exam Head Exam: ATRAUMATIC, NORMOCEPHALIC - Eye Exam Eye Exam: EOMI, PERRL - ENT Exam ENT Exam: Mucous Membranes Moist - Respiratory Exam Respiratory Exam: Clear to PA & Lateral, NORMAL BREATHING PATTERN. absent: Rales, Rhonchi, Wheezes, Respiratory Distress - Cardiovascular Exam Cardiovascular Exam: REGULAR RHYTHM, +S1, +S2 - GI/Abdominal Exam GI & Abdominal Exam: Normal Bowel Sounds, Soft. absent: Tenderness - Extremities Exam Extremities exam: pedal pulses present - Neurological Exam Neurological exam: Alert, CN II-XII Intact, Oriented x3 - Skin Skin Exam: Dry, Intact, Normal Color, Warm Discharge Plan - Discharge Medications Prescriptions: Clopidogrel [Plavix] 75 mg PO DAILY 30 Days #30 tab Levothyroxine [Synthroid] 125 mcg PO DAILY@0630 30 Days #30 tab Metoprolol Tartrate [Lopressor] 12.5 mg PO BID 30 Days #30 tab Simvastatin 80 mg PO HS #30 tablet - Follow Up Plan Condition: STABLE Disposition: HOME/ ROUTINE Instructions: Metoprolol (By mouth), Levothyroxine (By mouth), Simvastatin (By mouth), Clopidogrel (By mouth), Myocardial Infarction (DC), Heart Failure (DC), Heart Healthy Diet (DC), Heart Catheterization (DC) Additional Instructions: Take the following medications: 1. Aspirin 81 mg by mouth once a day. You can buy this one without a prescription. 2. Plavix 75 mg by mouth once a day. 3. Lopressor 12.5 mg by mouth twice a day. 4. Simvastatin 80 mg by mouth at bedtime. 5. Levothyroxine 125 mcg by mouth once a day as soon as you wake up. Take this one on an empty stomach and do not eat anything within 2 hours after taking it. Please follow up with our clinic in the [facility]. It is called the [facility]. We have included their information with your paperwork. You must make an appointment with them to be seen within 1 week of discharge. This is very important so that you can have appropriate follow-up care for your thyroid condition. Your thyroid must be rechecked through blood work in 6 weeks. Follow up with Dr. Olea the heart doctor in his [place] office in 2 weeks. He is located at [address] [place] [address], [facility]. His phone number is . You will need to repeat the echocardiogram which is the ultrasound of the heart in 4 weeks. If there are any new or worsening symptoms, please return to the emergency room. [place] los siguientes medicamentos: 1. Aspirina 81 mg por va oral genia vez al da. Puedes comprar esta sin receta. 2. Plavix 75 mg por va oral genia vez al da. 3. Lopressor 12.5 mg por va oral dos veces al da. 4. Simvastatin 80 mg por va oral a la hora de acostarse. 5. Levothyroxine 125 mcg por va oral genia vez al da harding pronto hoda se despierte. [place] esta con el estmago vaco y no coma nada dentro de las 2 horas despus de tomarlo. Por favor, siga con nuestra clnica en el [facility]. Se llama [facility]. Hemos incluido cheung informacin con cheung documentacin. Debe hacer genia zenobia con ellos para que los vean dentro de 1 semana de la fecha de jasmin. [place] es muy importante para que pueda tener un cuidado de seguimiento adecuado para cheung condicin de tiroides. Cheung tiroides debe ser revisado a travs de anlisis de mauricio en [address] con el [address] Olea, el mdico del caitlyn en cheung oficina de [place] en 2 semanas. l est ubicado en [address] [place] [address], [facility]. Cheung nmero de telfono es . Deber repetir el ecocardiograma que es la ecografa del corazn en 4 semanas. Si hay sntomas nuevos o que empeoran, por favor regrese a la oneal de emergencias. Referrals: [facility] [Outside] [facility]. [facility] [Outside] Kolby Olea MD [Staff Provider] - Clinical Quality Measures - CQM - Heart Failure Ejection Fraction: Less Than 40 % Left Ventricular Function to be assessed after discharge: Yes LATOYA Inhibitor Prescribed: No Contraindication/Reason for not providing: normotensive. not indicated by wine consultant Beta-Radha Prescribed: None Contraindication/Reason for not providing: Metoprolol Tartrate given instead Angiotensin II Receptor Radha Prescribed: No Contraindication/Reason for not providing: normotensive. not indicated by wine consultant AnticoagulationTherapy for Atrial Fibrillation/Atrialflutter: No Contraindication/Reason for not providing: not in Afib Aldosterone Antagonist Prescribed: No Contraindication/Reason for not providing: normotensive. not indicated by wine consultant Hydralazine Nitrate Prescribed: No Contraindication/Reason for not providing: not indicated Implantable Cardioverter Defibrillator Therapy: No Contraindication/Reason for not providing: not indicated Cardiac Resynchronization Therapy Prescribed: No Contraindication/Reason for not providing: not indicated Will be discharged to: Home Follow Up Date (must be within 7 days from discharge): 09/10/17 Follow Up Time: 09:00 <David Gutierrez - Last Filed: 09/05/17 12:09> Provider - Provider Date of Admission: 08/30/17 10:47 Attending physician: David Gutierrez MD Hospital Course - Lab Results Lab Results: Most Recent Lab Values WBC 4.8 K/uL (4.8-10.8) 09/03/17 07:07 RBC 3.27 Mil/uL (3.80-5.20) L 09/03/17 07:07 Hgb 10.6 g/dL (11.0-16.0) L 09/03/17 07:07 Hct 31.3 % (34.0-47.0) L 09/03/17 07:07 MCV 95.6 fL (81.0-99.0) 09/03/17 07:07 MCH 32.5 pg (27.0-31.0) H 09/03/17 07:07 MCHC 33.9 g/dL (33.0-37.0) 09/03/17 07:07 RDW 14.6 % (11.5-14.5) H 09/03/17 07:07 Plt Count 138 K/uL (130-400) 09/03/17 07:07 MPV 10.1 fL (7.2-11.7) 09/03/17 07:07 Neut % (Auto) 65.2 % (50.0-75.0) 09/03/17 07:07 Lymph % (Auto) 22.6 % (20.0-40.0) 09/03/17 07:07 Thayer % (Auto) 7.1 % (0.0-10.0) 09/03/17 07:07 Eos % (Auto) 3.3 % (0.0-4.0) 09/03/17 07:07 Baso % (Auto) 1.8 % (0.0-2.0) 09/03/17 07:07 Neut # 3.1 K/uL (1.8-7.0) 09/03/17 07:07 Lymph # 1.1 K/uL (1.0-4.3) 09/03/17 07:07 Thayer # 0.3 K/uL (0.0-0.8) 09/03/17 07:07 Eos # 0.2 K/uL (0.0-0.7) 09/03/17 07:07 Baso # 0.1 K/uL (0.0-0.2) 09/03/17 07:07 ESR 27 mm/hr (0-20) H 08/30/17 07:26 PT 11.7 SECONDS (9.7-12.2) 08/31/17 11:43 INR 1.0 08/31/17 11:43 APTT 35 SECONDS (21-34) H 08/30/17 11:11 Protein C Antigen 112 % (70-140) 09/02/17 14:18 Sodium 133 mmol/L (132-148) 09/03/17 07:07 Potassium 4.1 mmol/L (3.6-5.2) 09/03/17 07:07 Chloride 102 mmol/L (98-107) 09/03/17 07:07 Carbon Dioxide 25 mmol/L (22-30) 09/03/17 07:07 Anion Gap 10 (10-20) 09/03/17 07:07 BUN 13 mg/dL (7-17) 09/03/17 07:07 Creatinine 1.2 mg/dL (0.7-1.2) 09/03/17 07:07 Est GFR ( Amer) 56 09/03/17 07:07 Est GFR (Non-Af Amer) 46 09/03/17 07:07 Random Glucose 74 mg/dL (65-105) 09/03/17 07:07 Hemoglobin A1c 5.6 % (4.2-6.5) 08/31/17 10:00 Calcium 8.7 mg/dl (8.6-10.4) 09/03/17 07:07 Phosphorus 3.4 mg/dL (2.5-4.5) 09/03/17 07:07 Magnesium 1.8 mg/dL (1.6-2.3) 09/03/17 07:07 Total Bilirubin 0.5 mg/dL (0.2-1.3) 09/03/17 07:07 AST 92 U/L (14-36) H 09/03/17 07:07 ALT 34 U/L (9-52) 09/03/17 07:07 Alkaline Phosphatase 39 U/L (38-126) 09/03/17 07:07 Total Creatine Kinase 3044 U/L (30-135) H 08/30/17 07:26 CK-MB (Mass) 68.3 ng/mL (0.0-3.38) H 08/30/17 07:26 Troponin I 39.3000 ng/mL (0.00-0.120) H* 08/30/17 12:28 Troponin I, Quant 0.0420 ng/mL (0.00-0.120) 08/30/17 00:42 C-React Prot High Sens 3.63 mg/L (1.00-3.00) H 08/30/17 07:26 Total Protein 6.9 g/dL (6.3-8.3) 09/03/17 07:07 Albumin 3.9 g/dL (3.5-5.0) 09/03/17 07:07 Globulin 3.0 gm/dL (2.2-3.9) 09/03/17 07:07 Albumin/Globulin Ratio 1.3 (1.0-2.1) 09/03/17 07:07 Triglycerides 191 mg/dL (0-149) H 08/31/17 08:22 Cholesterol 484 mg/dL (0-199) H 08/31/17 08:22 LDL Cholesterol Direct 337 mg/dL (0-129) H 08/31/17 08:22 HDL Cholesterol 68 mg/dL (30-70) 08/31/17 08:22 Free T4 0.08 ng/dL (0.78-2.19) L 09/02/17 07:17 Thyroxine (T4) 1.52 ug/dL (5.5-11.0) L 09/02/17 07:17 TSH 3rd Generation 40.50 mIU/L (0.46-4.68) H 09/02/17 07:17 Urine Color Straw (YELLOW) 08/30/17 12:51 Urine Clarity Clear (Clear) 08/30/17 12:51 Urine pH 6.0 (5.0-8.0) 08/30/17 12:51 Ur Specific [place] 1.009 (1.003-1.030) 08/30/17 12:51 Urine Protein 1+ mg/dL (NEGATIVE) H 08/30/17 12:51 Urine Glucose (UA) Normal mg/dL (Normal) 08/30/17 12:51 Urine Ketones Negative mg/dL (NEGATIVE) 08/30/17 12:51 Urine Blood 1+ (NEGATIVE) H 08/30/17 12:51 Urine Nitrate Negative (NEGATIVE) 08/30/17 12:51 Urine Bilirubin Negative (NEGATIVE) 08/30/17 12:51 Urine Urobilinogen Normal mg/dL (0.2-1.0) 08/30/17 12:51 Ur Leukocyte Esterase Neg Sangita/uL (Negative) 08/30/17 12:51 Urine WBC (Auto) < 1 /hpf (0-5) 08/30/17 12:51 Rheum Arthritis Panel Negative (NEGATIVE) 08/30/17 07:26 Cycl Citrul Peptide IgG <16 Units (<20) 08/30/17 07:26 CAMERON 6 Profile Negative (NEGATIVE) 08/30/17 07:26 Uloc-3-Tidskofjipnl Ab <9 JOSY (<=20) 08/30/17 07:26 Beta-2 GPI IgG Ab <9 SGU (<=20) 08/30/17 07:26 Beta-2 GPI IgM Ab <9 SMU (<=20) 08/30/17 07:26 Thyroperoxidase Ab 31 IU/mL (<9) H 09/01/17 07:26 Thyroglobulin Antibody 2 IU/mL (< OR = 1) H 09/01/17 07:26 Phosphatidylserine IgG <10 U/mL (<10) 08/30/17 07:26 Phosphatidylserine IgA <20 U/mL (<20) 08/30/17 07:26 Phosphatidylserine IgM <25 U/mL (<25) 08/30/17 07:26 Anti-Phospholipid Intrp see note 08/30/17 07:26 Anti-Cardiolipin IgG Ab <14 GPL (<=14) 08/30/17 07:26 Anti-Cardiolipin IgA Ab <11 APL (<=11) 08/30/17 07:26 Anti-Cardiolipin IgM Ab <12 MPL (<=12) 08/30/17 07:26
--- NOTE | 2017-09-03 10:59 | CP.PCM.PN ---
<HARJIT DEL CASTILLO - Last Filed: 09/03/17 15:33> Subjective - Date & Time of Evaluation Date of Evaluation: 09/03/17 Time of Evaluation: 07:30 - Subjective Subjective: Harjit Del Castillo DO PGY1 - Cardiology Progress Note for Dr. Olea Patient seen and examined at bedside. No events overnight. Patient reports resolution in her chest pain, denies SOB, palpitations. Patient is able to walk around her room and the floor without pain/dyspnea. Objective - Vital Signs/Intake and Output Vital Signs (last 24 hours): Temp Pulse Resp BP Pulse Ox 97.9 F 73 20 106/70 100 09/03/17 07:15 09/03/17 08:00 09/03/17 07:15 09/03/17 07:15 09/03/17 07:15 Intake and Output: 09/03/17 09/03/17 06:59 18:59 Output Total 1 Balance -1 - Medications Medications: Current Medications Aspirin (Aspirin Chewable) 81 mg PO DAILY [facility] Last Admin: 09/03/17 09:48 Dose: 81 mg Clopidogrel Bisulfate (Plavix) 75 mg PO DAILY [facility] Last Admin: 09/03/17 09:48 Dose: 75 mg Heparin Sodium (Porcine) (Heparin) 5,000 units SC Q12 [facility] Last Admin: 09/03/17 09:48 Dose: 5,000 units Sodium Chloride (Sodium Chloride 0.9%) 1,000 mls @ 100 mls/hr IV .Q10H [facility] Last Admin: 09/03/17 04:51 Dose: Not Given Levothyroxine Sodium (Synthroid) 125 mcg PO DAILY@0630 [facility] Last Admin: 09/03/17 06:01 Dose: 125 mcg Metoprolol Tartrate (Lopressor) 12.5 mg PO BID [facility] Last Admin: 09/03/17 10:06 Dose: 12.5 mg Rosuvastatin Calcium (Crestor) 20 mg PO HS [facility] Last Admin: 09/02/17 22:29 Dose: 20 mg - Labs Labs: 09/03/17 07:07 09/03/17 07:07 PT 11.7 SECONDS (9.7-12.2) 08/31/17 11:43 INR 1.0 08/31/17 11:43 APTT 35 SECONDS (21-34) H 08/30/17 11:11 - Constitutional Appears: Non-toxic, No Acute Distress - Head Exam Head Exam: ATRAUMATIC, NORMOCEPHALIC - Eye Exam Eye Exam: EOMI, Normal appearance - ENT Exam ENT Exam: Mucous Membranes Moist - Respiratory Exam Respiratory Exam: Clear to Ausculation Bilateral, NORMAL BREATHING PATTERN. absent: Rales, Rhonchi, Wheezes - Cardiovascular Exam Cardiovascular Exam: RRR, +S1, +S2 - GI/Abdominal Exam GI & Abdominal Exam: Soft. absent: Tenderness - Extremities Exam Extremities Exam: absent: Calf Tenderness, Pedal Edema - Neurological Exam Neurological Exam: Alert, Awake, Oriented x3 - Psychiatric Exam Psychiatric exam: Normal Affect, Normal Mood - Skin Skin Exam: Dry, Intact Assessment and Plan - Assessment and Plan (Free Text) Assessment: 57 yo F with PMH of HTN presents for CP, noted to have pericardial effusion on chest CT, and subsequent elevation in cardiac enzymes; now noted to have hypothyroidism, and is s/p PCI Plan: 1. Pericardial effusion - Small to medium sized effusion seen on chest CT - Echo showed moderate pericardial effusion, reduced LV function, collapsing RV , no signs of tamponade - Likely 2/2 hypothyroidism vs AK vs pericarditis - Patient likely had underlying pericardial effusion 2/2 chronic, undiagnosed hypothyroidism, which was acutely worsened with NSTEMI which made her preload dependant - ESR and CRP elevated; Autoimmune workup negative except antithyroglobulin and thyroperoxidase antiboties - TSH 38.4; total and free T4 low - Patient is s/p RHCx and LHCx; pericardiocentesis not done; RHCx did not demonstrate elevated filling pressures or tamponade physiology - Repeat echo shows 10-20% improvement in pericardial effusion; no change in her LVEF 2. Chest pain, 2/2 NSTEMI - Patient presented with typical chest pain, but no associated symptoms, and few risk factors - Patient no longer having any chest pain or shortness of breath - ST depressions noted in lateral leads on EKG - CK and CKMB elevated in ER, trended up; Troponin normal initially, continued to trend up throughout the day - Patient s/p LHCx which demonstrated 100% calcified occlusion in proximal left circumflex artery, ruptured plaque in proximal LAD and occlusive thrombus in distal LAD; subsequent PCI with [id number] LAD JAZMINE placement and PTCA with intracoronary integrilin and POBA of distal LAD - Continue ASA, plavix, BB, statin 3. Hyperlipidemia - Lipid panel done yesterday, shows elevated total cholesterol, LDL, and triglycerides, but good HDL - Continue statin, as above 4. HTN - BP currently stable - Continue BB - Continue to monitor and titrate meds as needed 5. Hypothyroidism - Pt does not have a history of hypothyroidism; TSH elevated, total and free T4 low - Endocrinology (Dr. Huizar) on consult, appreciate recs - Treatment as per Dr. Huizar and primary team Patient continues to have chronic pericardial effusion, with normal filling pressures and no signs of tamponade; patient may be discharged with outpatient follow up in 1-2 weeks for evaluation for staged PCI and monitoring of her pericardial effusion and CHF; repeat Echo in 4 weeks Patient seen, discussed, and reviewed with attending <Kolby Olea - Last Filed: 09/15/17 14:30> Objective - Vital Signs/Intake and Output Vital Signs (last 24 hours): Temp Pulse Resp BP Pulse Ox 98.0 F 78 20 120/84 99 09/03/17 15:08 09/03/17 15:08 09/03/17 15:08 09/03/17 15:08 09/03/17 15:08 - Labs Labs: 09/03/17 07:07 09/03/17 07:07 PT 11.7 SECONDS (9.7-12.2) 08/31/17 11:43 INR 1.0 08/31/17 11:43 APTT 35 SECONDS (21-34) H 08/30/17 11:11 Attending/Attestation - Attestation I have personally seen and examined this patient.: Yes I have fully participated in the care of the patient.: Yes I have reviewed all pertinent clinical information, including history, physical exam and plan: Yes Notes (Text): 09/15/17 14:30 doing well plan for dc f/u echo in 1-2 weeks
[2017-09-03 16:10] VITALS: BP 120/84; PULSE 78; TEMP 98; O2SAT 99
--- NOTE | 2017-09-03 17:03 | PCM.HF ---
Heart Failure Core Measure - Heart Failure Ejection Fraction: Less Than 40 % Left Ventricular Function to be assessed after discharge: Yes LATOYA Inhibitor Prescribed: No Contraindication/Reason for not providing: normotensive, not rx by cardiology Beta-Radha Prescribed: Metoprolol Succinate Angiotensin II Receptor Radha Prescribed: No Contraindication/Reason for not providing: normotensive, not rx by cardiology AnticoagulationTherapy for Atrial Fibrillation/Atrialflutter: No Contraindication/Reason for not providing: no afib Aldosterone Antagonist Prescribed: No Contraindication/Reason for not providing: not rx by cardiology Hydralazine Nitrate Prescribed: No Contraindication/Reason for not providing: not rx by cardiology Implantable Cardioverter Defibrillator Therapy: No Contraindication/Reason for not providing: not indicated at present Cardiac Resynchronization Therapy Prescribed: No Contraindication/Reason for not providing: not indicated at present - Follow up Will be discharged to: Home Follow Up Date (must be within 7 days from discharge): 09/10/17 Follow Up Time: 09:00
--- NOTE | 2017-09-03 18:07 | PN ---
ENDOCRINOLOGY FOLLOWUP NOTE LOCATION: Room #662. This is a 57-year-old with recent overt hypothyroidism, now being followed closed for metabolic management. She has improved clinically and by chemically with the initiation of high-dose levothyroxine replacement therapy as given. Her latest thyroid studies showed a T4 of 1.52 with a TSH of 40.50 and a free T4 of 0.08, so at this time, we will continue the higher dose modification of her levothyroxine, given as 125 mcg daily as ordered. She will follow with her medical doctor for outpatient medical and thyroid followup and dose adjustments to be undertaken thereof. Discussed with the medical radiation tech regarding the need for follow up of her T4 and TSH to be done in 4 to 6 weeks for dose adjustment to be undertaken. Padmini Huizar MD
--- NOTE | 2017-09-06 11:48 | PQF CHF ---
This form is a permanent part of the medical record Clarification of your documentation is requested to better reflect the severity of illness and intensity of treatment of your patient. PLEASE CLARIFY AND DOCUMENT THE TYPE OF 'CHF' Indicators present [X ] Diagnosis of CHF and/or history of CHF [] BNP > 200 [X] Imaging Finding of Pulmonary Edema /Pleural Effusions [] Fluid/Volume Overload [] Pitting edema [X==20--25%] Ejection Fraction < 40% (Indicative of Systolic Heart Failure) [] Ejection Fraction > 40% (Indicative of Diastolic Heart Failure) [] Dyspnea / Orthopenea / Paroxysmal Nocturnal Dyspnea [XSYSTOLIC DIASTOLIC DYSFUNCTION/COLLAPSED] Other: Location in the medical record that reflects the above clinical findings: [ECHO P/N] Treatment Provided: [] PHYSICIAN'S RESPONSE Based on your medical judgment of the clinical indicators outlined above, are you treating this patient for a known or suspected: [] Acute CHF [] Systolic [] Diastolic [] Combined [] Chronic CHF [] Systolic [] Diastolic [] Combined [x] Acute on Chronic CHF []Systolic [] Diastolic [x] Combined [] CHF due hypertension [] Acute systolic []Chronic systolic [] Acute/ chronic systolic [] Other, please indicate: [] [] If Unable to Determine, please check the box, sign and date. Present On Admission (POA) Indicator: [x] Present at the time of admission [] Not present at the time of admission [] Clinically Undetermined In responding to this query, please exercise your independent professional judgment. The fact that a question is asked does not imply that any particular answer is desired or expected. Thank you for your clarification on this documentation. If you have any questions please call:[[phone] * Thank you, [ Lorna Anguiano] electro mechanical technician [employer]
== END 2017-09-03 15:45 | disposition home or self-care (01) | DRG 246 ==
LOC: C.ER 00:02 → INTOOBSV 02:20 → C.9E 02:20 → C.6T 02:58 → OBSVTOIN 10:47 → C.6T 13:11
PROVIDERS: ADMIT Internal Medicine; ATTEND Internal Medicine
PROC: 4A023N8 Measurement of Cardiac Sampling and Pressure, Bilateral, Percutaneous Approach (ICD-10-PCS; principal; 2017-08-30)
PROC: 027034Z Dilation of Coronary Artery, One Artery with Drug-eluting Intraluminal Device, Percutaneous Approach (ICD-10-PCS; 2017-08-30)
PROC: B2161ZZ Fluoroscopy of Right and Left Heart using Low Osmolar Contrast (ICD-10-PCS; 2017-08-30)
PROC: B2111ZZ Fluoroscopy of Multiple Coronary Arteries using Low Osmolar Contrast (ICD-10-PCS; 2017-08-30)
DX: I21.4 Non-ST elevation (NSTEMI) myocardial infarction (principal); I50.23 Acute on chronic systolic (congestive) heart failure; N17.9 Acute kidney failure, unspecified; I31.3 Pericardial effusion (noninflammatory); I13.0 Hypertensive heart and chronic kidney disease with heart failure and stage 1 through stage 4 chronic kidney disease, or unspecified chronic kidney disease; E06.3 Autoimmune thyroiditis; E78.5 Hyperlipidemia, unspecified; N18.9 Chronic kidney disease, unspecified; I34.0 Nonrheumatic mitral (valve) insufficiency; I36.1 Nonrheumatic tricuspid (valve) insufficiency; I25.10 Atherosclerotic heart disease of native coronary artery without angina pectoris; E11.22 Type 2 diabetes mellitus with diabetic chronic kidney disease

== ENCOUNTER 2018-06-18 11:19 | Inpatient (IN) | payer OTHER ==
--- NOTE | 2018-06-18 11:46 | C.PDOC ---
History Of Present Illness Pt is a 58 year old female patient with hx of HTN, HLD, CAD and hypothyroidism presents to the ER with c/o left and right upper chest pain for 2 hours. Patient reports she was doing laundry when the chest pain started 2 hrs ago. Her pain scale is a 8/10. She notes this is her 2nd time with the same chest pain; took 1 baby aspirin w/o any relief. She is unable to describe the pain. Her PCP is Dr. Kolby Olea and was seen by him for her 1st chest pain. Patient denies SOB and FUENTES. Chief Complaint (Nursing): Chest Pain History Per: Patient History/Exam Limitations: no limitations Onset/Duration Of Symptoms: Hrs Current Symptoms Are (Timing): Still Present Past Medical History Reviewed: Historical Data, Nursing Documentation, Vital Signs Vital Signs: Last Vital Signs Temp 98.1 F 06/18/18 11:25 Pulse 95 H 06/18/18 13:23 Resp 18 06/18/18 13:23 BP 108/69 06/18/18 13:23 Pulse Ox 100 06/18/18 14:04 - Medical History PMH: CAD, HTN, Hyperlipidemia, Hypothyroidism - [facility] Procedures DILATION OF 1 COR ART WITH DRUG-ELUT INTRA, PERC APPROACH (08/30/17) FLUOROSCOPY OF MULT COR ART USING L OSM CONTRAST (08/30/17) FLUOROSCOPY OF RIGHT AND LEFT HEART USING L OSM CONTRAST (08/30/17) MEASURE CARDIAC SAMPL & PRESSURE, BILATERAL, PERC (08/30/17) Family History: States: No Known Family Hx - Social History Hx Tobacco Use: No Hx Alcohol Use: No Hx Substance Use: No Review Of Systems Except As Marked, All Systems Reviewed And Found Negative. Constitutional: Negative for: Other (Headache) Cardiovascular: Positive for: Chest Pain (left and right upper chest pain) Respiratory: Negative for: Shortness of Breath Physical Exam - Physical Exam Appears: Well, Non-toxic, No Acute Distress Skin: Normal Color, Warm, Dry Head: Atraumatic, Normacephalic Eye(s): bilateral: Normal Inspection, EOMI Ear(s): Bilateral: Normal Nose: Normal Oral Mucosa: Moist Tongue: Normal Appearing Lips: Normal Appearing Throat: Normal Neck: Normal ROM, Supple Lymphatic: Deferred Chest: Symmetrical, No Deformity Cardiovascular: Rhythm Regular, Other (tachycardic) Respiratory: Other (crackles to the lung base bilaterally) Gastrointestinal/Abdominal: Normal Exam, Bowel Sounds, Soft, No Tenderness Rectal: Deferred Back: No CVA Tenderness Extremity: Normal ROM (x4), No Pedal Edema, Capillary Refill (<2 sec) Pulses: Left Radial: Normal, Right Radial: Normal, Left Dorsalis Pedis: Normal, Right Dorsalis Pedis: Normal Neurological/Psych: Oriented x3, Normal Speech, Normal Motor, Normal Sensation, Normal Reflexes, Other (nonfocal) Gait: Steady ED Course And Treatment - Laboratory Results Result Diagrams: 06/18/18 11:57 06/18/18 11:57 O2 Sat by Pulse Oximetry: 100 (RA) Pulse Ox Interpretation: Normal Medical Decision Making Medical Decision Making: Initial impression: unstable angina Initial Plan: Discussed with Dr. Olea; recommends to start patient on Heparin drip and nitroglycerin drip (and PO Lopressor), and if possible to get an Echo today. He will also come to hospital to evaluate the pt. Progress note(s): After 1 SL nitro, patient states her chest pain has gone from an 8 to a 4. Case endorsed to hospitalist Dr. Duncan Reyes. I also discussed with ICU attending Dr. Jovani Reyes--agrees to accept to ICU. Disposition - Disposition Disposition: HOSPITALIZED Disposition Time: 12:11 Condition: SERIOUS - POA Present On Arrival: None - Clinical Impression Clinical Impression: Unstable angina, Cardiac ischemia - Scribe Statement The provider has reviewed the documentation as recorded by the Pancho Oliveira Do Provider Attestation: All medical record entries made by the Scribe were at my direction and personally dictated by me. I have reviewed the chart and agree that the record accurately reflects my personal performance of the history, physical exam, medical decision making, and the department course for this patient. I have also personally directed, reviewed, and agree with the discharge instructions and disposition. Decision To Admit - Pt Status Changed To: Hospital Disposition Of: Inpatient - Admit Certification Admit to Inpatient:: After my assessment, the patient will require hospitalization for at least two midnights. This is because of the severity of symptoms shown, intensity of services needed, and/or the medical risk in this patient being treated as an outpatient. - InPatient: Physician Admission Certification: I certify that this patient requires 2 or more midnights of care for the following reason:: Patient with coronary ischemia - . Bed Request Type: ICU Admitting Physician: Duncan Reyes Patient Diagnosis: Unstable angina, New electrocardiography abnormalities consistent with ischemia noted during preoperative cardiovascular examination
[2018-06-18] MEDS ORDERED: Aspirin 325 mg EC Tablets PO STA (11:48)
[2018-06-18] MEDS ORDERED: Aspirin 325 mg EC Tablets PO ONE (12:01)
[2018-06-18 12:03] LABS: BASO # 0.1 K/uL (0.0-0.2); BASO % 0.6 % (0.0-2.0); EOS # 0.2 K/uL (0.0-0.7); EOS % 1.5 % (0.0-4.0); HEMOGLOBIN 12.6 g/dL (11.0-16.0); LYMPH # 1.9 K/uL (1.0-4.3); LYMPH % 16.5 % (20.0-40.0); MEAN CELL VOLUME 84.4 fL (81.0-99.0); MEAN CORPUSCULAR HEMOGLOBIN 28.1 pg (27.0-31.0); MEAN CORPUSCULAR HGB CONC 33.3 g/dL (33.0-37.0); MEAN PLATELET VOLUME 9.4 fL (7.2-11.7); MONO # 0.6 K/uL (0.0-0.8); MONO % 5.5 % (0.0-10.0); NEUT # 8.6 K/uL (1.8-7.0); NEUT % 75.9 % (50.0-75.0); NRBC % 0.2 % (0.0-2.0); RBC 4.49 Mil/uL (3.80-5.20); RED CELL DISTRIBUTION WIDTH 13.9 % (11.5-14.5); WHITE BLOOD COUNT 11.3 K/uL (4.8-10.8)
[2018-06-18] MEDS ORDERED: Nitroglycerin 50mg in D5W 50 MG/250 ML BOTTLE IV ONE ×3 (12:04→15:09)
[2018-06-18 12:10] LABS: INR 1.1; PROTHROMBIN TIME 11.7 SECONDS (9.7-12.2)
[2018-06-18 12:20] LABS: ALB/GLOB RATIO 1.6 (1.0-2.1); ALBUMIN 4.5 g/dL (3.5-5.0); ALT/SGPT 42 U/L (9-52); AST/SGOT 43 U/L (14-36); BLOOD UREA NITROGEN 17 mg/dL (7-17); GFR AFRICAN-AMERICAN > 60; GFR NON-AFRICAN AMERICAN 57
[2018-06-18] MEDS ORDERED: Heparin25000 units/250ml 1/2NS 25,000 UNITS/250 ML BAG IV ONE (12:30)
[2018-06-18 12:31] LABS: B-TYPE NATRIURETIC PEPTIDE 556 pg/mL (0-900)
--- NOTE | 2018-06-18 13:25 | RAD ---
Date of service: 06/18/2018 PROCEDURE: CHEST RADIOGRAPH, 1 VIEW HISTORY: chest pain COMPARISON: Comparison is made with 08/30/2017 FINDINGS: LUNGS: [id number] pulmonary vascular congestion. PLEURA: No pneumothorax or pleural fluid seen. CARDIOVASCULAR: Normal. OSSEOUS STRUCTURES: No significant abnormalities. VISUALIZED UPPER ABDOMEN: Normal. OTHER FINDINGS: None. IMPRESSION: [id number] pulmonary vascular congestion.
[2018-06-18] MEDS ORDERED: Alum-Mag Hydrox-Simethicone Susp (30 mL) PO ONE ×2 (13:43→15:45)
--- NOTE | 2018-06-18 13:48 | CP.PCM.CON ---
History of Present Illness - History of Present Illness History of Present Illness: 58 year old female patient with pMx of HTN, HLD, and hypothyroidism presents to [facility] with c/o left and right upper chest pain for 2 weeks. (+)Pain worsen during exertion, /10 described as strong radaiting to elba, patient well known to Dr. Kolby Olea. Last cardiac cath last year. Pmx: HTN, hyperchole, CAD Psurg hs: denies social hx: denies Smoking, denies any illicit drug use Strong family history of CAD Review of Systems - Constitutional Constitutional: As Per HPI Past Patient History - Tetanus Immunizations Tetanus Immunization: Unknown - Past Medical History & Family History Past Medical History?: Yes - Past Social History Smoking Status: Never Smoked Chewing Tobacco Use: No Cigar Use: No Alcohol: Occasional Drugs: Denies Home Situation {Lives}: With Family Domestic Violence: Negative - CARDIAC Hx Hypertension: Yes - PULMONARY Hx Respiratory Disorders: No - NEUROLOGICAL Hx Neurological Disorder: No - HEENT Hx HEENT Problems: No - RENAL Hx Chronic Kidney Disease: No - ENDOCRINE/METABOLIC Hx Hypothyroidism: Yes - HEMATOLOGICAL/ONCOLOGICAL Hx Blood Disorders: No - INTEGUMENTARY Hx Dermatological Problems: No - MUSCULOSKELETAL/RHEUMATOLOGICAL Hx Musculoskeletal Disorders: No Hx Falls: No - GASTROINTESTINAL Hx Gastrointestinal Disorders: No - GENITOURINARY/GYNECOLOGICAL Hx Genitourinary Disorders: No - PSYCHIATRIC Hx Substance Use: No - SURGICAL HISTORY Hx Eye Surgery: Yes ("both eyes 4 yrs ago") - ANESTHESIA Hx Anesthesia Reactions: No Hx Malignant Hyperthermia: No Meds Allergies/Adverse Reactions: Allergies Allergy/AdvReac Type Severity Reaction Status Date / Time No Known Allergies Allergy Unverified 08/30/17 00:21 - Medications Medications: Current Medications Al Hydrox/Mg Hydrox/Simethicone (Maalox Plus 30 Ml) 30 ml PO ONCE ONE Stop: 06/18/18 13:44 Heparin Sodium/Sodium Chloride (Heparin 81976 Units/250ml 1/2 Normal Saline) 25 ,000 units in 250 mls @ 8.981 mls/hr IV .Q24H ONE; 12 UNITS/KG/HR PRN Reason: Protocol Stop: 06/19/18 12:29 Last Admin: 06/18/18 12:49 Dose: 8.981 mls/hr Nitroglycerin/Dextrose (Nitroglycerin 50 Mg/250 Ml D5w) 50 mg in 250 mls @ 1.5 mls/hr IV .Q24H ONE PRN Reason: 5 MCG/MIN Stop: 06/19/18 12:03 Last Admin: 06/18/18 12:33 Dose: 1.5 mls/hr Physical Exam - Head Exam Head Exam: ATRAUMATIC, NORMAL INSPECTION, NORMOCEPHALIC - Eye Exam Eye Exam: EOMI - ENT Exam ENT Exam: Mucous Membranes Moist, Normal Exam - Neck Exam Neck exam: Positive for: Normal Inspection - Respiratory Exam Respiratory Exam: NORMAL BREATHING PATTERN - Cardiovascular Exam Cardiovascular Exam: REGULAR RHYTHM, +S1, +S2, +S4 - GI/Abdominal Exam GI & Abdominal Exam: Normal Bowel Sounds, Soft. absent: Tenderness - Extremities Exam Extremities exam: Positive for: normal inspection. Negative for: pedal edema Results - Vital Signs Recent Vital Signs: Last Vital Signs Temp 98.1 F 06/18/18 11:25 Pulse 95 H 06/18/18 13:23 Resp 18 06/18/18 13:23 BP 108/69 06/18/18 13:23 Pulse Ox 98 06/18/18 13:23 - Labs Result Diagrams: 06/19/18 03:53 06/19/18 03:53 Labs: Laboratory Results - last 24 hr 06/18/18 06/18/18 06/18/18 11:57 11:57 11:57 WBC 11.3 H D RBC 4.49 Hgb 12.6 D Hct 37.9 MCV 84.4 D MCH 28.1 MCHC 33.3 RDW 13.9 Plt Count 264 D MPV 9.4 Neut % (Auto) 75.9 H Lymph % (Auto) 16.5 L [place] % (Auto) 5.5 Eos % (Auto) 1.5 Baso % (Auto) 0.6 Neut # (Auto) 8.6 H Lymph # (Auto) 1.9 [place] # (Auto) 0.6 Eos # (Auto) 0.2 Baso # (Auto) 0.1 PT 11.7 INR 1.1 APTT 38 H Sodium 141 Potassium 4.2 Chloride 105 Carbon Dioxide 23 Anion Gap 18 BUN 17 Creatinine 1.0 Est GFR ( Amer) > 60 Est GFR (Non-Af Amer) 57 Random Glucose 133 H Calcium 10.0 Total Bilirubin 0.6 AST 43 H D ALT 42 Alkaline Phosphatase 193 H D Total Creatine Kinase 109 Troponin I 0.0430 NT-Pro-B Natriuret Pep 556 Total Protein 7.4 Albumin 4.5 Globulin 2.9 Albumin/Globulin Ratio 1.6 Blood Type Antibody Screen 06/18/18 11:57 WBC RBC Hgb Hct MCV MCH MCHC RDW Plt Count MPV Neut % (Auto) Lymph % (Auto) [place] % (Auto) Eos % (Auto) Baso % (Auto) Neut # (Auto) Lymph # (Auto) [place] # (Auto) Eos # (Auto) Baso # (Auto) PT INR APTT Sodium Potassium Chloride Carbon Dioxide Anion Gap BUN Creatinine Est GFR ( Amer) Est GFR (Non-Af Amer) Random Glucose Calcium Total Bilirubin AST ALT Alkaline Phosphatase Total Creatine Kinase Troponin I NT-Pro-B Natriuret Pep Total Protein Albumin Globulin Albumin/Globulin Ratio Blood Type B POSITIVE Antibody Screen Negative - EKG Data EKG Interpreted by: ER Physician - EKG Data When Compared to Previous EKG: Significant Changes Assessment & Plan - Assessment and Plan (Free Text) Assessment: Chest Pain: r/o ACS: check trop q8hrs, EKG q24 hrs and start IV heparin and IV nitro titrate to pain free, DAPT, continue lopressor and statin, check P2Y12 as patient has been taking plavix -CArdiology eval -keep NPO exept meds -PAtient remains hemodynamically stable. Patient admitted to ICU to titrate IV nitro for pain free state. -echo pending -d/w Dr. Gale. Adddendum: Severe systolic heart failure/NSTEMI: will benefit from spirinolactone, acei, statin and DAPT, continue IV heparin -will benefit from AICD - Date & Time Date: 06/18/18 Time: 13:52
--- NOTE | 2018-06-18 13:58 | CP.PCM.HP ---
Addendum entered and electronically signed by Ivan Hassan DO 06/18/18 19: 37: Second Troponin elevated 14.1. ICU Nurse called and left message for Dr Mendoza. I attempted to call as also. Made sure to sign out of Night resident for elevated Troponin. Original Note: <Ivan Hassan - Last Filed: 06/18/18 19:30> History of Present Illness - History of Present Illness History of Present Illness: CC:"Chest pain when doing the laundry" HPI:58 year old female with a past medical history of HF rEP (sytolic HF), hypertension, hyperlipidemia, cad, autoimmunie thyroiditis, hypothyroidism, pleural effusion who comes into the hospital today after reporting some chest pain that began earlier this morning. The patient states that it started while she was doing laundry in her home. She subsequently began to feel a stabbing sensation that was diffuse throughout her anterior chest. She rates the pain initially as a 8/10 in severity with no radiation. Patient reports taking an Aspirin after the chest pain began, however she didn't notice an improvement in her symptoms. She denies any orthopnea, dyspnea, dizziness, fevers, chills, nausea, vomiting, changes in vision, abdominal pain, palpitations, syncopal episodes, recent travel, or any other complaints. PMD: None per Chart Review Tester Rocket Engine: Dr. Olea Past medical history: hypertension, hyperlipidemia, cad, autoimmune thyroiditis Medications:Furosemide 40mg PO Daily, Clopidogrel 75mg PO Daily, Isosorbide Dare 30mg PO Daily, Renexa 500mg Q12, ASA 81 mg PO Daily, Lisinopril 5mg PO Daily, Simvistatin 80mg PO HS, Levothyroxine 125mcg PO Daily Allergies: Denies Surigcal history: Pterygium Eye surgery (2016), Cardiac cath (08/2017) showed LAD 100% blockage Code Status:Full code Present on Admission - Present on Admission Any Indicators Present on Admission: No Review of Systems - Constitutional Constitutional: absent: Daytime Sleepiness, Frequent Falls, Headache, Night Sweats, Snoring, Weakness - EENT Eyes: absent: Blurred Vision, Discharge, Dry Eye, Loss of Peripheral Vision Ears: absent: Ear Discharge, Dizziness Nose/Mouth/Throat: absent: Nasal Congestion, Nose Pain, Bleeding Gums, Halitosis , Mouth Pain, Facial Pain - Cardiovascular Cardiovascular: Chest Pain. absent: Diaphoresis Past Patient History - Tetanus Immunizations Tetanus Immunization: Unknown - Past Medical History & Family History Past Medical History?: Yes - Past Social History Smoking Status: Never Smoked Chewing Tobacco Use: No Cigar Use: No Alcohol: Occasional Drugs: Denies Home Situation {Lives}: With Family Domestic Violence: Negative - CARDIAC Hx Hypertension: Yes - PULMONARY Hx Respiratory Disorders: No - NEUROLOGICAL Hx Neurological Disorder: No - HEENT Hx HEENT Problems: No - RENAL Hx Chronic Kidney Disease: No - ENDOCRINE/METABOLIC Hx Hypothyroidism: Yes - HEMATOLOGICAL/ONCOLOGICAL Hx Blood Disorders: No - INTEGUMENTARY Hx Dermatological Problems: No - MUSCULOSKELETAL/RHEUMATOLOGICAL Hx Musculoskeletal Disorders: No Hx Falls: No - GASTROINTESTINAL Hx Gastrointestinal Disorders: No - GENITOURINARY/GYNECOLOGICAL Hx Genitourinary Disorders: No - PSYCHIATRIC Hx Substance Use: No - SURGICAL HISTORY Hx Eye Surgery: Yes ("both eyes 4 yrs ago") - ANESTHESIA Hx Anesthesia Reactions: No Hx Malignant Hyperthermia: No Meds Allergies/Adverse Reactions: Allergies Allergy/AdvReac Type Severity Reaction Status Date / Time No Known Allergies Allergy Unverified 08/30/17 00:21 Physical Exam - Head Exam Head Exam: ATRAUMATIC, NORMAL INSPECTION, NORMOCEPHALIC - Eye Exam Eye Exam: EOMI, Normal appearance, PERRL. absent: Periorbital tenderness Pupil Exam: NORMAL ACCOMODATION, PERRL - ENT Exam ENT Exam: Mucous Membranes Moist, Normal Oropharynx - Neck Exam Neck exam: Negative for: Lymphadenopathy, Thyromegaly - Respiratory Exam Respiratory Exam: NORMAL BREATHING PATTERN (Crackles at bilateral lower lung bases). absent: Chest Wall Tenderness, Prolonged Expiratory Phase, Respiratory Distress - Cardiovascular Exam Cardiovascular Exam: Tachycardia, +S1, +S2 - GI/Abdominal Exam GI & Abdominal Exam: Normal Bowel Sounds, Soft - Extremities Exam Extremities exam: Positive for: normal inspection. Negative for: full ROM, pedal edema - Back Exam Back exam: NORMAL INSPECTION. absent: CVA tenderness (L), CVA tenderness (R), paraspinal tenderness - Neurological Exam Neurological exam: Alert, CN II-XII Intact, Oriented x3 - Psychiatric Exam Psychiatric exam: Normal Affect, Normal Mood - Skin Skin Exam: Dry, Intact, Normal Color Results - Vital Signs Recent Vital Signs: Last Vital Signs Temp 98.1 F 06/18/18 11:25 Pulse 95 H 06/18/18 13:23 Resp 18 06/18/18 13:23 BP 108/69 06/18/18 13:23 Pulse Ox 98 06/18/18 13:23 - Labs Result Diagrams: 06/18/18 11:57 06/18/18 11:57 Labs: Laboratory Results - last 24 hr 06/18/18 06/18/18 06/18/18 11:57 11:57 11:57 WBC 11.3 H D RBC 4.49 Hgb 12.6 D Hct 37.9 MCV 84.4 D MCH 28.1 MCHC 33.3 RDW 13.9 Plt Count 264 D MPV 9.4 Neut % (Auto) 75.9 H Lymph % (Auto) 16.5 L Dare % (Auto) 5.5 Eos % (Auto) 1.5 Baso % (Auto) 0.6 Neut # (Auto) 8.6 H Lymph # (Auto) 1.9 Dare # (Auto) 0.6 Eos # (Auto) 0.2 Baso # (Auto) 0.1 PT 11.7 INR 1.1 APTT 38 H Sodium 141 Potassium 4.2 Chloride 105 Carbon Dioxide 23 Anion Gap 18 BUN 17 Creatinine 1.0 Est GFR ( Amer) > 60 Est GFR (Non-Af Amer) 57 Random Glucose 133 H Calcium 10.0 Total Bilirubin 0.6 AST 43 H D ALT 42 Alkaline Phosphatase 193 H D Total Creatine Kinase 109 Troponin I 0.0430 NT-Pro-B Natriuret Pep 556 Total Protein 7.4 Albumin 4.5 Globulin 2.9 Albumin/Globulin Ratio 1.6 Blood Type Antibody Screen 06/18/18 11:57 WBC RBC Hgb Hct MCV MCH MCHC RDW Plt Count MPV Neut % (Auto) Lymph % (Auto) Dare % (Auto) Eos % (Auto) Baso % (Auto) Neut # (Auto) Lymph # (Auto) Dare # (Auto) Eos # (Auto) Baso # (Auto) PT INR APTT Sodium Potassium Chloride Carbon Dioxide Anion Gap BUN Creatinine Est GFR ( Amer) Est GFR (Non-Af Amer) Random Glucose Calcium Total Bilirubin AST ALT Alkaline Phosphatase Total Creatine Kinase Troponin I NT-Pro-B Natriuret Pep Total Protein Albumin Globulin Albumin/Globulin Ratio Blood Type B POSITIVE Antibody Screen Negative Assessment & Plan - Assessment and Plan (Free Text) Assessment: 58 year old female with a past medical hisotry of systolic EF (LAST ECHO 08/30/17 ), hypertension, hyperlipidemia, cad, autoimmunie thyroiditis, and pleural effusion who was admitted for chest pain. Plan: 1. Chest pain r/o acs (history of CAD and HFrEP (systolic HF) -EKG showed -ICU Consulted. Help appreciated -Patient admitted to unit for further monitoring. -Cardiology consulted, Dr. Olea. Help appreciated. Per Cardiology rec's :Heparin Drip IV@12 units/kg/hr :Nitroglycerin Drip IV @ 5mcg/min :Aspirin -Troponin .04. Will trend troponins -EKG q6 x2 Echocardiogram :EF 25-30% :Global hypokinesis of left ventricle :Grade II pseudonormal filling dynamics :Mitral reugurgitation is mild to moderate : Mild tricuspid regurgitation 2. Hypertension -Hold Lasix 40mg PO Daily -Hold Metoprolol 25mg PO BID (1/2 tab) -Hold Isosorbide monomer 30mg PO Daily -Patient on Nitro drip in the unit. 3. Hyperlipidemia -Start home medications Simvastatin 80mg PO HS. -F/u Lipid panel 4. DM2 -F/u Hemoglobin A1C -ISS -NPO at this time for possible ?Diagnositic Cardiac cath -Hypoglycemia protocols -Accuchecks ACHS 5.Hypothyroid -Restart Levothyroxine 125mcg PO Daily -F/u TSH and Free T4 6. Pericaridal effusion -As per last echo in 2017 -Echocardiogram :EF 25-30% :Global hypokinesis of left ventricle :Grade II pseudonormal filling dynamics :Mitral reugurgitation is mild to moderate : Mild tricuspid regurgitation PPX -No GI ppx indicated at this time -Heparin Drip -NPO diet for ?Diagnostic Cardiac cath Full code Dispo: Patient admitted to the ICU. Dr. Olea aware of patient. NPO for possible Diagnostic Cardiac Cath today 06/18/18 or Wednesday06/19/[address] Duncan Hassan, PGY-2 <Duncan Reyes - Last Filed: 06/19/18 18:47> Results - Vital Signs Recent Vital Signs: Last Vital Signs Temp 98.6 F 06/19/18 16:00 Pulse 72 07/29/18 18:00 Resp 20 06/19/18 18:00 BP 115/64 06/19/18 17:44 Pulse Ox 100 06/19/18 18:00 - Labs Result Diagrams: 06/19/18 03:53 06/19/18 03:53 Labs: Laboratory Results - last 24 hr 06/18/18 06/18/18 06/18/18 18:00 18:02 18:02 WBC RBC Hgb Hct MCV MCH MCHC RDW Plt Count MPV Neut % (Auto) Lymph % (Auto) Dare % (Auto) Eos % (Auto) Baso % (Auto) Neut # (Auto) Lymph # (Auto) Dare # (Auto) Eos # (Auto) Baso # (Auto) APTT Plt P2Y12 React Units 102 L Sodium Potassium Chloride Carbon Dioxide Anion Gap BUN Creatinine Est GFR ( Amer) Est GFR (Non-Af Amer) POC Glucose (mg/dL) Random Glucose Hemoglobin A1c 5.6 Calcium Magnesium Total Bilirubin AST ALT Alkaline Phosphatase Troponin I Cancelled Total Protein Albumin Globulin Albumin/Globulin Ratio LDL Cholesterol Direct 79 Free T4 TSH 3rd Generation 0.07 L 06/18/18 06/18/18 06/18/18 18:02 18:02 19:50 WBC RBC Hgb Hct MCV MCH MCHC RDW Plt Count MPV Neut % (Auto) Lymph % (Auto) Dare % (Auto) Eos % (Auto) Baso % (Auto) Neut # (Auto) Lymph # (Auto) Dare # (Auto) Eos # (Auto) Baso # (Auto) APTT 125 H* D Plt P2Y12 React Units Sodium Potassium Chloride Carbon Dioxide Anion Gap BUN Creatinine Est GFR ( Amer) Est GFR (Non-Af Amer) POC Glucose (mg/dL) Random Glucose Hemoglobin A1c Calcium Magnesium Total Bilirubin AST ALT Alkaline Phosphatase Troponin I 14.1000 H* Total Protein Albumin Globulin Albumin/Globulin Ratio LDL Cholesterol Direct Free T4 1.56 TSH 3rd Generation 06/18/18 06/19/18 06/19/18 21:09 01:51 03:53 WBC 7.6 RBC 4.37 Hgb 12.4 Hct 36.8 MCV 84.0 MCH 28.3 MCHC 33.7 RDW 13.9 Plt Count 215 MPV 9.2 Neut % (Auto) 68.5 Lymph % (Auto) 17.7 L Dare % (Auto) 10.0 Eos % (Auto) 2.9 Baso % (Auto) 0.9 Neut # (Auto) 5.2 Lymph # (Auto) 1.3 Dare # (Auto) 0.8 Eos # (Auto) 0.2 Baso # (Auto) 0.1 APTT Plt P2Y12 React Units Sodium Potassium Chloride Carbon Dioxide Anion Gap BUN Creatinine Est GFR ( Amer) Est GFR (Non-Af Amer) POC Glucose (mg/dL) 80 Random Glucose Hemoglobin A1c Calcium Magnesium Total Bilirubin AST ALT Alkaline Phosphatase Troponin I 10.8000 H* Total Protein Albumin Globulin Albumin/Globulin Ratio LDL Cholesterol Direct Free T4 TSH 3rd Generation 06/19/18 06/19/18 06/19/18 03:53 03:53 03:53 WBC RBC Hgb Hct MCV MCH MCHC RDW Plt Count MPV Neut % (Auto) Lymph % (Auto) Dare % (Auto) Eos % (Auto) Baso % (Auto) Neut # (Auto) Lymph # (Auto) Dare # (Auto) Eos # (Auto) Baso # (Auto) APTT 60 H D Plt P2Y12 React Units Sodium 141 Potassium 3.7 Chloride 104 Carbon Dioxide 24 Anion Gap 16 BUN 17 Creatinine 0.9 Est GFR ( Amer) > 60 Est GFR (Non-Af Amer) > 60 POC Glucose (mg/dL) Random Glucose 95 Hemoglobin A1c Calcium 9.6 Magnesium 1.9 Total Bilirubin 0.7 AST 119 H D ALT 43 Alkaline Phosphatase 164 H Troponin I Total Protein 6.6 Albumin 4.0 Globulin 2.7 Albumin/Globulin Ratio 1.5 LDL Cholesterol Direct Free T4 TSH 3rd Generation 06/19/18 06/19/18 06/19/18 07:39 11:21 11:34 WBC RBC Hgb Hct MCV MCH MCHC RDW Plt Count MPV Neut % (Auto) Lymph % (Auto) Dare % (Auto) Eos % (Auto) Baso % (Auto) Neut # (Auto) Lymph # (Auto) Dare # (Auto) Eos # (Auto) Baso # (Auto) APTT 31 D Plt P2Y12 React Units Sodium Potassium Chloride Carbon Dioxide Anion Gap BUN Creatinine Est GFR ( Amer) Est GFR (Non-Af Amer) POC Glucose (mg/dL) 79 101 Random Glucose Hemoglobin A1c Calcium Magnesium Total Bilirubin AST ALT Alkaline Phosphatase Troponin I Total Protein Albumin Globulin Albumin/Globulin Ratio LDL Cholesterol Direct Free T4 TSH 3rd Generation 06/19/18 16:10 WBC RBC Hgb Hct MCV MCH MCHC RDW Plt Count MPV Neut % (Auto) Lymph % (Auto) Dare % (Auto) Eos % (Auto) Baso % (Auto) Neut # (Auto) Lymph # (Auto) Dare # (Auto) Eos # (Auto) Baso # (Auto) APTT Plt P2Y12 React Units Sodium Potassium Chloride Carbon Dioxide Anion Gap BUN Creatinine Est GFR ( Amer) Est GFR (Non-Af Amer) POC Glucose (mg/dL) 80 Random Glucose Hemoglobin A1c Calcium Magnesium Total Bilirubin AST ALT Alkaline Phosphatase Troponin I Total Protein Albumin Globulin Albumin/Globulin Ratio LDL Cholesterol Direct Free T4 TSH 3rd Generation Attending/Attestation - Attestation I have personally seen and examined this patient.: Yes I have fully participated in the care of the patient.: Yes I have reviewed all pertinent clinical information: Yes Notes (Text): 06/19/18 18:46 This is a late entry. History, Physical, Assessment and Plan and Orders were discussed with the resident. Duncan Reyes D.O.
--- NOTE | 2018-06-18 16:34 | CARD ---
APPROVED REPORT Date of service: 06/18/2018 EXAM: Two-dimensional and M-mode echocardiogram with Doppler and color Doppler. Other Information Quality : GoodRhythm : INDICATION Cardiac Disease: CAD LV Function:Systolic RISK FACTORS Hyperlipidemia 2D DIMENSIONS IVSd0.9 (0.7-1.1cm)LVDd5.3 (3.9-5.9cm) PWd0.9 (0.7-1.1cm)LVDs4.6 (2.5-4.0cm) FS (%) 12.9 %LVEF (%)27.5 (>50%) M-Mode DIMENSIONS Left Atrium (MM)3.61 (2.5-4.0cm)IVSd0.98 (0.7-1.1cm) Aortic Root3.64 (2.2-3.7cm)LVDd5.73 (4.0-5.6cm) Aortic Cusp Exc.2.09 (1.5-2.0cm)PWd0.99 (0.7-1.1cm) FS (%) 12 %LVDs5.02 (2.0-3.8cm) LVEF (%)26 (>50%) Mitral Valve MV E Mombdyiq011.8cm/sMV A Szfxmhba501.0cm/sE/A ratio0.9 TDI E/Lateral E'0.0E/Medial E'0.0 Tricuspid Valve TR Peak [id number]/sTR Peak Gr.[id number] LEFT VENTRICLE The Left Ventricle is moderately dilated. There is borderline concentric left ventricular hypertrophy. Left ventricle systolic function is moderately to severely impaired. The Ejection Fraction is 25-30%. There is global hypokinesis of the left ventricle. Transmitral Doppler flow pattern is Grade II-pseudonormal filling dynamics. Left Ventricular End Diastolic Pressure is severely elevated. RIGHT VENTRICLE The right ventricle is normal size. There is normal right ventricular wall thickness. The right ventricular systolic function is normal. ATRIA The left atrium is mildly dilated. The right atrium is borderline dilated. The interatrial septum is intact with no evidence for an atrial septal defect. AORTIC VALVE The aortic valve is normal in structure. There is trace aortic regurgitation. There is no aortic valvular stenosis. MITRAL VALVE The mitral valve is normal in structure. There is no evidence of mitral valve prolapse. There is no mitral valve stenosis. Mitral regurgitation is mild to moderate. TRICUSPID VALVE The tricuspid valve is normal in structure. There is mild tricuspid regurgitation. There is no tricuspid valve prolapse or vegetation. There is no tricuspid valve stenosis. PULMONIC VALVE The pulmonary valve is normal in structure. There is no pulmonic valvular regurgitation. GREAT VESSELS The aortic root is normal in size. The IVC is normal in size and collapses >50% with inspiration. PERICARDIAL EFFUSION There is no pericardial effusion. <Conclusion> Left ventricle systolic function is moderately to severely impaired. The Ejection Fraction is 25-30%. There is global hypokinesis of the left ventricle. Transmitral Doppler flow pattern is Grade II-pseudonormal filling dynamics. Left Ventricular End Diastolic Pressure is severely elevated. Mitral regurgitation is mild to moderate. There is mild tricuspid regurgitation.
--- NOTE | 2018-06-18 20:43 | CP.PCM.CON ---
Past Patient History - Tetanus Immunizations Tetanus Immunization: Unknown - Past Medical History & Family History Past Medical History?: Yes - Past Social History Smoking Status: Never Smoked Chewing Tobacco Use: No Cigar Use: No Alcohol: Occasional Drugs: Denies Home Situation {Lives}: With Family Domestic Violence: Negative - CARDIAC Hx Hypertension: Yes - PULMONARY Hx Respiratory Disorders: No - NEUROLOGICAL Hx Neurological Disorder: No - HEENT Hx HEENT Problems: No - RENAL Hx Chronic Kidney Disease: No - ENDOCRINE/METABOLIC Hx Hypothyroidism: Yes - HEMATOLOGICAL/ONCOLOGICAL Hx Blood Disorders: No - INTEGUMENTARY Hx Dermatological Problems: No - MUSCULOSKELETAL/RHEUMATOLOGICAL Hx Musculoskeletal Disorders: No Hx Falls: No - GASTROINTESTINAL Hx Gastrointestinal Disorders: No - GENITOURINARY/GYNECOLOGICAL Hx Genitourinary Disorders: No - PSYCHIATRIC Hx Substance Use: No - SURGICAL HISTORY Hx Eye Surgery: Yes ("both eyes 4 yrs ago") - ANESTHESIA Hx Anesthesia Reactions: No Hx Malignant Hyperthermia: No Meds Allergies/Adverse Reactions: Allergies Allergy/AdvReac Type Severity Reaction Status Date / Time No Known Allergies Allergy Unverified 08/30/17 00:21 - Medications Medications: Current Medications Nitroglycerin/Dextrose (Nitroglycerin 50 Mg/250 Ml D5w) 50 mg in 250 mls @ 1.5 mls/hr IV .Q24H ONE; 5 MCG/MIN PRN Reason: Protocol Stop: 06/19/18 12:03 Last Titration: 06/18/18 15:00 Dose: 0 mcg/min, 0 mls/hr Heparin Sodium/Sodium Chloride (Heparin 73938 Units/250ml 1/2 Normal Saline) 25 ,000 units in 250 mls @ 6.287 mls/hr IV .Q24H PRN; Protocol; 9 UNITS/KG/HR PRN Reason: ADJUST RATE PER PROTOCOL Levothyroxine Sodium (Synthroid) 125 mcg PO DAILY@0630 CHELY Pantoprazole Sodium (Protonix Ec Tab) 40 mg PO DAILY CHELY Rosuvastatin Calcium (Crestor) 10 mg PO HS CHELY Results - Vital Signs Recent Vital Signs: Last Vital Signs Temp 98.7 F 06/18/18 16:00 Pulse 79 06/18/18 19:00 Resp 19 06/18/18 19:00 BP 97/52 L 06/18/18 18:44 Pulse Ox 100 06/18/18 16:00 - Labs Result Diagrams: 06/18/18 11:57 06/18/18 11:57 Labs: Laboratory Results - last 24 hr 06/18/18 06/18/18 06/18/18 11:57 11:57 11:57 WBC 11.3 H D RBC 4.49 Hgb 12.6 D Hct 37.9 MCV 84.4 D MCH 28.1 MCHC 33.3 RDW 13.9 Plt Count 264 D MPV 9.4 Neut % (Auto) 75.9 H Lymph % (Auto) 16.5 L [place] % (Auto) 5.5 Eos % (Auto) 1.5 Baso % (Auto) 0.6 Neut # (Auto) 8.6 H Lymph # (Auto) 1.9 [place] # (Auto) 0.6 Eos # (Auto) 0.2 Baso # (Auto) 0.1 PT 11.7 INR 1.1 APTT 38 H Plt P2Y12 React Units Sodium 141 Potassium 4.2 Chloride 105 Carbon Dioxide 23 Anion Gap 18 BUN 17 Creatinine 1.0 Est GFR ( Amer) > 60 Est GFR (Non-Af Amer) 57 POC Glucose (mg/dL) Random Glucose 133 H Calcium 10.0 Phosphorus Total Bilirubin 0.6 AST 43 H D ALT 42 Alkaline Phosphatase 193 H D Total Creatine Kinase 109 Troponin I 0.0430 NT-Pro-B Natriuret Pep 556 Total Protein 7.4 Albumin 4.5 Globulin 2.9 Albumin/Globulin Ratio 1.6 Triglycerides Cholesterol LDL Cholesterol Direct HDL Cholesterol Free T4 TSH 3rd Generation Blood Type Antibody Screen 06/18/18 06/18/18 06/18/18 11:57 16:31 18:00 WBC RBC Hgb Hct MCV MCH MCHC RDW Plt Count MPV Neut % (Auto) Lymph % (Auto) [place] % (Auto) Eos % (Auto) Baso % (Auto) Neut # (Auto) Lymph # (Auto) [place] # (Auto) Eos # (Auto) Baso # (Auto) PT INR APTT Plt P2Y12 React Units 102 L Sodium Potassium Chloride Carbon Dioxide Anion Gap BUN Creatinine Est GFR ( Amer) Est GFR (Non-Af Amer) POC Glucose (mg/dL) 97 Random Glucose Calcium Phosphorus Total Bilirubin AST ALT Alkaline Phosphatase Total Creatine Kinase Troponin I NT-Pro-B Natriuret Pep Total Protein Albumin Globulin Albumin/Globulin Ratio Triglycerides Cholesterol LDL Cholesterol Direct HDL Cholesterol Free T4 TSH 3rd Generation Blood Type B POSITIVE Antibody Screen Negative 06/18/18 06/18/18 06/18/18 18:02 18:02 18:02 WBC RBC Hgb Hct MCV MCH MCHC RDW Plt Count MPV Neut % (Auto) Lymph % (Auto) [place] % (Auto) Eos % (Auto) Baso % (Auto) Neut # (Auto) Lymph # (Auto) [place] # (Auto) Eos # (Auto) Baso # (Auto) PT INR APTT Plt P2Y12 React Units Sodium Potassium Chloride Carbon Dioxide Anion Gap BUN Creatinine Est GFR ( Amer) Est GFR (Non-Af Amer) POC Glucose (mg/dL) Random Glucose Calcium Phosphorus 4.5 Total Bilirubin AST ALT Alkaline Phosphatase Total Creatine Kinase Troponin I Cancelled 14.1000 H* NT-Pro-B Natriuret Pep Total Protein Albumin Globulin Albumin/Globulin Ratio Triglycerides 78 D Cholesterol 148 LDL Cholesterol Direct 79 HDL Cholesterol 41 Free T4 1.56 TSH 3rd Generation 0.07 L Blood Type Antibody Screen 06/18/18 19:50 WBC RBC Hgb Hct MCV MCH MCHC RDW Plt Count MPV Neut % (Auto) Lymph % (Auto) [place] % (Auto) Eos % (Auto) Baso % (Auto) Neut # (Auto) Lymph # (Auto) [place] # (Auto) Eos # (Auto) Baso # (Auto) PT INR APTT 125 H* D Plt P2Y12 React Units Sodium Potassium Chloride Carbon Dioxide Anion Gap BUN Creatinine Est GFR ( Amer) Est GFR (Non-Af Amer) POC Glucose (mg/dL) Random Glucose Calcium Phosphorus Total Bilirubin AST ALT Alkaline Phosphatase Total Creatine Kinase Troponin I NT-Pro-B Natriuret Pep Total Protein Albumin Globulin Albumin/Globulin Ratio Triglycerides Cholesterol LDL Cholesterol Direct HDL Cholesterol Free T4 TSH 3rd Generation Blood Type Antibody Screen
[2018-06-18] MEDS ORDERED: Heparin25000 units/250ml 1/2NS 25,000 UNITS/250 ML BAG IV PRN (21:15)
[2018-06-19 03:58] LABS: BASO # 0.1 K/uL (0.0-0.2); BASO % 0.9 % (0.0-2.0); EOS # 0.2 K/uL (0.0-0.7); EOS % 2.9 % (0.0-4.0); HEMOGLOBIN 12.4 g/dL (11.0-16.0); LYMPH # 1.3 K/uL (1.0-4.3); LYMPH % 17.7 % (20.0-40.0); MEAN CORPUSCULAR HEMOGLOBIN 28.3 pg (27.0-31.0); MEAN CORPUSCULAR HGB CONC 33.7 g/dL (33.0-37.0); MEAN PLATELET VOLUME 9.2 fL (7.2-11.7); MONO # 0.8 K/uL (0.0-0.8); NEUT # 5.2 K/uL (1.8-7.0); NEUT % 68.5 % (50.0-75.0); NRBC % 0.1 % (0.0-2.0); RBC 4.37 Mil/uL (3.80-5.20); RED CELL DISTRIBUTION WIDTH 13.9 % (11.5-14.5); WHITE BLOOD COUNT 7.6 K/uL (4.8-10.8)
[2018-06-19 04:08] LABS: ALB/GLOB RATIO 1.5 (1.0-2.1); ALT/SGPT 43 U/L (9-52); AST/SGOT 119 U/L (14-36); BLOOD UREA NITROGEN 17 mg/dL (7-17); CALCIUM 9.6 mg/dl (8.6-10.4); GFR AFRICAN-AMERICAN > 60; GFR NON-AFRICAN AMERICAN > 60
[2018-06-19] MEDS: Levothyroxine 125 MCG TAB PO SCH (06:18)
--- NOTE | 2018-06-19 08:13 | CP.PCM.PN ---
Subjective - Date & Time of Evaluation Date of Evaluation: 06/19/18 Time of Evaluation: 08:10 - Subjective Subjective: PAtient remains chest pain free, continues IV heparin, awaiting cardiology decision regarding PCI vs. conservative medical treatment Objective - Vital Signs/Intake and Output Vital Signs (last 24 hours): Temp Pulse Resp BP Pulse Ox 97.7 F 88 20 99/61 L 99 06/19/18 04:00 06/19/18 07:00 06/19/18 07:00 06/19/18 06:44 06/19/18 07:00 Intake and Output: 06/19/18 06/19/18 06:59 18:59 Intake Total 56.7 6.3 Output Total 0 0 Balance 56.7 6.3 - Medications Medications: Current Medications Aspirin (Aspirin Chewable) 81 mg PO DAILY CHELY Nitroglycerin/Dextrose (Nitroglycerin 50 Mg/250 Ml D5w) 50 mg in 250 mls @ 1.5 mls/hr IV .Q24H ONE; 5 MCG/MIN PRN Reason: Protocol Stop: 06/19/18 12:03 Last Titration: 06/18/18 15:00 Dose: 0 mcg/min, 0 mls/hr Heparin Sodium/Sodium Chloride (Heparin 45568 Units/250ml 1/2 Normal Saline) 25 ,000 units in 250 mls @ 6.287 mls/hr IV .Q24H PRN; Protocol; 9 UNITS/KG/HR PRN Reason: ADJUST RATE PER PROTOCOL Last Admin: 06/18/18 21:18 Dose: 9 units/kg/hr, 6.287 mls/hr Levothyroxine Sodium (Synthroid) 125 mcg PO DAILY@0630 CHELY Last Admin: 06/19/18 06:18 Dose: 125 mcg Pantoprazole Sodium (Protonix Ec Tab) 40 mg PO DAILY CHELY Rosuvastatin Calcium (Crestor) 10 mg PO HS [facility] Last Admin: 06/18/18 21:16 Dose: 10 mg - Labs Labs: 06/19/18 03:53 06/19/18 03:53 PT 11.7 SECONDS (9.7-12.2) 06/18/18 11:57 INR 1.1 06/18/18 11:57 APTT 60 SECONDS (21-34) H D 06/19/18 03:53 Assessment and Plan - Assessment and Plan (Free Text) Assessment: ACS/NSTEMI: trop(+), f/u EKG, off IV nitro titrate, p2y12 low, continue plavix + asa, continue lopressor and statin as Bp tolerated -CArdiology eval appreciated -start diet if no intervention anticipated -PAtient remains hemodynamically stable. -restart home medications -if CP free patient can be tele monitoring.
[2018-06-19] MEDS ORDERED: Lactated Ringer's 500 ML IV ONE ×2 (09:14→09:15)
[2018-06-19] MEDS ORDERED: Pantoprazole 40 mg EC Tab PO SCH (10:00)
[2018-06-19] MEDS ORDERED: Lactated Ringer's 1,000 ML IV ONE (10:40)
[2018-06-19] MEDS ORDERED: Heparin25000 units/250ml 1/2NS 25,000 UNITS/250 ML BAG IV PRN (12:40)
--- NOTE | 2018-06-19 13:30 | CP.PCM.PN ---
Subjective - Date & Time of Evaluation Date of Evaluation: 06/19/18 Time of Evaluation: 13:15 - Subjective Subjective: Hospitalist Progress Note Patient was seen and examined at 1:15 PM 06/19/18 ICU Bed 14 A Very pleasant 58 year old female (PMHx CAD S/P Stent August 2017, HFrEF, HTN, HLD, DM2, Hypothyroidism, Pericardial Effusion) was admitted to the ICU on for evaluation of diffuse chest pain. She was placed on Nitroglycerin Drip which was discontinued after chest pain resolved and she was started on Heprin Drip for elevated troponins. She is for diagnostic cardiac catheterization with [employer] Dr. Allyson Olea on 06/20/18. Currently upon FULL ROS: Dizziness comes and goes (may be secondary to the Nitroglycerin Drip) NO chest pain NO palpitations NO SOB/Cough/Wheezing NO dysphagia/odynophagia NO abdominal pain NO n/v/d: last bowel movement was on Wednesday and it was normal NO burning/pain with urination/excessive urination/feeling of incomplete evacuation of bladder/changes in color of urine/discharge NO paresthesias NO headaches NO new changes in vision/eye pain/loss of vision NO new changes in hearing/tinnitus/hearing loss Exam: General: AAOX3, NAD HEENT: NCA, EOMI, PERRLA, NO cervical/supraclavicular/submandibular lymphadenopathy, NO pharyngeal erythema/exudate, Nasal Turbinates are nonerythematous/nonedematous, Oral Mucosa is moist, NO thyromegaly Cardio: NS1 and NS2, NO M/R/G Resp: CTA B/L, NO R/R/W GI: BSx4, Soft, NO HSM, NO guarding/rebound tenderness Ext: Pulses are strong and equal, Capillary Refill is 2 seconds, Extremities are noncyanotic/warm Neuro: CN II through XII are grossly intact Assessments 1. Chest pain R/O ACS (History of CAD S/P Stent August 2017 and HFrEF/Systolic HF) Echocardiogram 06/18/18 :EF 25-30% :Global hypokinesis of left ventricle :Grade II pseudonormal filling dynamics :Mitral reugurgitation is mild to moderate :Mild tricuspid regurgitation ASA 81 mg PO 1x/day Plavix 75 mg PO 1x/day Zestril 2.5 mg PO 1x/day Crestor 10 mg PO HS Spiranolactone 25 mg PO 1x/day Heparin Drip to be continued For Cardiac Catheterization with Dr. Allyson Olea on 06/20/18 2. Hx Hypertension Blood Pressure is on low end Hold Lasix 40mg PO Daily Hold Metoprolol 25mg PO BID (1/2 tab) Hold Isosorbide monomer 30mg PO Daily Zestril 2.5 mg PO 1x/day 3. Hx Hyperlipidemia Crestor 10 mg PO HS (on Simvastatin 40 mg PO 1x/day at home) Lipid Panel WNL 4. Questionable Hx DM2 Hemoglobin A1C is 5.6 RISS ACHS Hypoglycemic protocol 5. Hx Hypothyroid Levothyroxine 125mcg PO Daily TSH low at 0.7 but Free T4 normal at 1.56 6. Hx Pericaridal effusion As per previous Echo in 2017 Echocardiogram 06/18/18 :EF 25-30% :Global hypokinesis of left ventricle :Grade II pseudonormal filling dynamics :Mitral reugurgitation is mild to moderate :Mild tricuspid regurgitation 7. Prophylaxis No GI ppx indicated at this time Heparin Drip Clear Liquid Diet and then NPO after midnight Plan: Spoke with Cardiology Dr. Allyson Olea and he is planning for Cardiac Catheterization 06/20/18. Patient and her Daughter were updated as to plan. Duncan Reyes D.O. Objective - Vital Signs/Intake and Output Vital Signs (last 24 hours): Temp Pulse Resp BP Pulse Ox 97.7 F 77 19 99/72 L 100 06/19/18 04:00 06/19/18 12:00 06/19/18 12:00 06/19/18 11:44 06/19/18 12:00 Intake and Output: 06/19/18 06/19/18 06:59 18:59 Intake Total 56.7 1087.8 Output Total 0 1100 Balance 56.7 -12.2 - Medications Medications: Current Medications Aspirin (Aspirin Chewable) 81 mg PO DAILY [facility] Last Admin: 06/19/18 10:42 Dose: 81 mg Clopidogrel Bisulfate (Plavix) 75 mg PO DAILY [facility] Last Admin: 06/19/18 10:42 Dose: 75 mg Famotidine (Pepcid) 40 mg PO DAILY [facility] Last Admin: 06/19/18 10:43 Dose: 40 mg Lactated Ringer's (Lactated Ringer's) 1,000 mls @ 50 mls/hr IV .Q20H ONE Stop: 06/20/18 06:39 Last Admin: 06/19/18 10:48 Dose: 50 mls/hr Heparin Sodium/Sodium Chloride (Heparin 53743 Units/250ml 1/2 Normal Saline) 25 ,000 units in 250 mls @ 9.081 mls/hr IV .Q24H PRN; Protocol; 13 UNITS/KG/HR PRN Reason: ADJUST RATE PER PROTOCOL Levothyroxine Sodium (Synthroid) 125 mcg PO DAILY@629 [facility] Last Admin: 06/19/18 06:18 Dose: 125 mcg Lisinopril (Zestril) 2.5 mg PO DAILY [facility] Last Admin: 06/19/18 10:43 Dose: 2.5 mg Rosuvastatin Calcium (Crestor) 10 mg PO HS [facility] Last Admin: 06/18/18 21:16 Dose: 10 mg Spironolactone (Aldactone) 25 mg PO DAILY [facility] Last Admin: 06/19/18 10:47 Dose: 25 mg - Labs Labs: 06/19/18 03:53 06/19/18 03:53 PT 11.7 SECONDS (9.7-12.2) 06/18/18 11:57 INR 1.1 06/18/18 11:57 APTT 31 SECONDS (21-34) D 06/19/18 11:34
[2018-06-19] MEDS ORDERED: Dextrose 50% SYRINGE Inj (50 ml) IV PRN (13:43)
[2018-06-19] MEDS ORDERED: Glucagon Recombinant 1 mg Inj IM PRN (13:43)
[2018-06-19] MEDS: (Novolin R) Insulin Human Regular 100 units/ml vial SC SCH ×2 (17:58→21:27)
[2018-06-20 05:42] LABS: BASO # 0.1 K/uL (0.0-0.2); BASO % 0.8 % (0.0-2.0); EOS # 0.2 K/uL (0.0-0.7); EOS % 2.4 % (0.0-4.0); HEMOGLOBIN 11.6 g/dL (11.0-16.0); LYMPH # 1.5 K/uL (1.0-4.3); LYMPH % 22.4 % (20.0-40.0); MEAN CELL VOLUME 84.8 fL (81.0-99.0); MEAN CORPUSCULAR HEMOGLOBIN 28.8 pg (27.0-31.0); MEAN PLATELET VOLUME 9.4 fL (7.2-11.7); MONO # 0.6 K/uL (0.0-0.8); MONO % 8.6 % (0.0-10.0); NEUT # 4.5 K/uL (1.8-7.0); NEUT % 65.8 % (50.0-75.0); RBC 4.01 Mil/uL (3.80-5.20); RED CELL DISTRIBUTION WIDTH 13.9 % (11.5-14.5); WHITE BLOOD COUNT 6.9 K/uL (4.8-10.8)
[2018-06-20] MEDS: Levothyroxine 125 MCG TAB PO SCH (05:54)
[2018-06-20 06:20] LABS: ALB/GLOB RATIO 1.4 (1.0-2.1); ALBUMIN 3.7 g/dL (3.5-5.0); ALT/SGPT 41 U/L (9-52); AST/SGOT 58 U/L (14-36); BLOOD UREA NITROGEN 12 mg/dL (7-17); CALCIUM 9.5 mg/dl (8.6-10.4); GFR AFRICAN-AMERICAN > 60; GFR NON-AFRICAN AMERICAN > 60
[2018-06-20] MEDS: (Novolin R) Insulin Human Regular 100 units/ml vial SC SCH ×4 (07:30→21:23)
--- NOTE | 2018-06-20 08:29 | CP.PCM.PN ---
Subjective - Date & Time of Evaluation Date of Evaluation: 06/20/18 Time of Evaluation: 09:00 Objective - Vital Signs/Intake and Output Vital Signs (last 24 hours): Temp Pulse Resp BP Pulse Ox 98.6 F 69 16 104/54 L 97 06/20/18 04:00 06/20/18 07:00 06/20/18 07:00 06/20/18 06:44 06/20/18 07:00 Intake and Output: 06/20/18 06/20/18 06:59 18:59 Intake Total 133.3 7 Output Total 300 Balance -166.7 7 - Medications Medications: Current Medications Aspirin (Aspirin Chewable) 81 mg PO DAILY [facility] Last Admin: 06/19/18 10:42 Dose: 81 mg Clopidogrel Bisulfate (Plavix) 75 mg PO DAILY [facility] Last Admin: 06/19/18 10:42 Dose: 75 mg Dextrose (Dextrose 50% Inj) 0 ml IV STAT PRN; Protocol PRN Reason: Hypoglycemia Protocol Dextrose (Glutose 15) 0 gm PO ONCE PRN; Protocol PRN Reason: Hypoglycemia Protocol Famotidine (Pepcid) 40 mg PO DAILY [facility] Last Admin: 06/19/18 10:43 Dose: 40 mg Glucagon (Glucagen Diagnostic Kit) 0 mg IM STAT PRN; Protocol PRN Reason: Hypoglycemia Protocol Heparin Sodium/Sodium Chloride (Heparin 88889 Units/250ml 1/2 Normal Saline) 25 ,000 units in 250 mls @ 9.081 mls/hr IV .Q24H PRN; Protocol; 13 UNITS/KG/HR PRN Reason: ADJUST RATE PER PROTOCOL Last Titration: 06/19/18 23:37 Dose: 10 units/kg/hr, 6.985 mls/hr Dextrose (Dextrose 5% In Water 1000 Ml) 1,000 mls @ 0 mls/hr IV .Q0M PRN; Protocol; Per Protocol PRN Reason: Hypoglycemia Protocol Insulin Human Regular (Novolin R) 0 unit SC ACHS [facility] PRN Reason: Protocol Last Admin: 06/19/18 21:27 Dose: Not Given Levothyroxine Sodium (Synthroid) 125 mcg PO DAILY@0630 [facility] Last Admin: 06/20/18 05:54 Dose: 125 mcg Lisinopril (Zestril) 2.5 mg PO DAILY [facility] Last Admin: 06/19/18 10:43 Dose: 2.5 mg Rosuvastatin Calcium (Crestor) 10 mg PO HS [facility] Last Admin: 06/19/18 21:27 Dose: 10 mg Spironolactone (Aldactone) 25 mg PO DAILY [facility] Last Admin: 06/19/18 10:47 Dose: 25 mg - Labs Labs: 06/20/18 05:35 06/20/18 05:35 PT 11.7 SECONDS (9.7-12.2) 06/18/18 11:57 INR 1.1 06/18/18 11:57 APTT 47 SECONDS (21-34) H D 06/20/18 05:35
[2018-06-20] MEDS: Dextrose 5%/0.45% NS 1,000 ML IV SCH (09:45)
[2018-06-20] MEDS ORDERED: Heparin 0 ML IV ONE (09:52)
[2018-06-20] MEDS ORDERED: Lidocaine 2% MPF (5 ml) Inj ONE ×2 (09:52→10:23)
--- NOTE | 2018-06-20 10:01 | CP.PCM.PN ---
Subjective - Date & Time of Evaluation Date of Evaluation: 06/20/18 Time of Evaluation: 10:01 - Subjective Subjective: cath today Objective - Vital Signs/Intake and Output Vital Signs (last 24 hours): Temp Pulse Resp BP Pulse Ox 98.6 F 70 21 129/72 100 06/20/18 04:00 06/20/18 09:09 06/20/18 09:09 06/20/18 09:09 06/20/18 09:09 Intake and Output: 06/20/18 06/20/18 06:59 18:59 Intake Total 133.3 7 Output Total 300 Balance -166.7 7 - Medications Medications: Current Medications Aspirin (Aspirin Chewable) 81 mg PO DAILY [facility] Last Admin: 06/20/18 09:41 Dose: 81 mg Clopidogrel Bisulfate (Plavix) 75 mg PO DAILY [facility] Last Admin: 06/20/18 09:41 Dose: 75 mg Dextrose (Dextrose 50% Inj) 0 ml IV STAT PRN; Protocol PRN Reason: Hypoglycemia Protocol Dextrose (Glutose 15) 0 gm PO ONCE PRN; Protocol PRN Reason: Hypoglycemia Protocol Famotidine (Pepcid) 40 mg PO DAILY [facility] Last Admin: 06/19/18 10:43 Dose: 40 mg Glucagon (Glucagen Diagnostic Kit) 0 mg IM STAT PRN; Protocol PRN Reason: Hypoglycemia Protocol Heparin Sodium/Sodium Chloride (Heparin 15307 Units/250ml 1/2 Normal Saline) 25 ,000 units in 250 mls @ 9.081 mls/hr IV .Q24H PRN; Protocol; 13 UNITS/KG/HR PRN Reason: ADJUST RATE PER PROTOCOL Last Titration: 06/19/18 23:37 Dose: 10 units/kg/hr, 6.985 mls/hr Dextrose (Dextrose 5% In Water 1000 Ml) 1,000 mls @ 0 mls/hr IV .Q0M PRN; Protocol; Per Protocol PRN Reason: Hypoglycemia Protocol Dextrose/Sodium Chloride (Dextrose 5%/0.45% Ns 1000 Ml) 1,000 mls @ 40 mls/hr IV .Q24H [facility] Last Admin: 06/20/18 09:45 Dose: 40 mls/hr Insulin Human Regular (Novolin R) 0 unit SC ACHS [facility] PRN Reason: Protocol Last Admin: 06/20/18 07:30 Dose: Not Given Levothyroxine Sodium (Synthroid) 125 mcg PO DAILY@0630 [facility] Last Admin: 06/20/18 05:54 Dose: 125 mcg Lisinopril (Zestril) 2.5 mg PO DAILY [facility] Last Admin: 06/19/18 10:43 Dose: 2.5 mg Rosuvastatin Calcium (Crestor) 10 mg PO HS [facility] Last Admin: 06/19/18 21:27 Dose: 10 mg Spironolactone (Aldactone) 25 mg PO DAILY [facility] Last Admin: 06/19/18 10:47 Dose: 25 mg - Labs Labs: 06/20/18 05:35 06/20/18 05:35 PT 11.7 SECONDS (9.7-12.2) 06/18/18 11:57 INR 1.1 06/18/18 11:57 APTT 47 SECONDS (21-34) H D 06/20/18 05:35
[2018-06-20] MEDS ORDERED: Nitroglycerin 50mg in D5W 50 MG/250 ML BOTTLE IV ONE (10:24)
[2018-06-20] MEDS ORDERED: Verapamil 2 ML ONE (10:24)
[2018-06-20] MEDS ORDERED: Iodixanol 320 MG/ML 100 ML BOTTLE IV ONE (10:26)
[2018-06-20] MEDS ORDERED: Midazolam 2 MG/2 ML VIAL ONE (10:29)
--- NOTE | 2018-06-20 12:42 | CP.PCM.PN ---
Subjective - Date & Time of Evaluation Date of Evaluation: 06/20/18 Time of Evaluation: 12:38 - Subjective Subjective: Medical Attending Note: Patient see and examined at bedside. Patient's son at bedside. Patient is sleeping. Patient completed cardiac cath earlier. Unable to ROS secondary to patient sleeping. per discussion with RN, patient had left main artery was stented and and there is a lesion proximal LAD. Objective - Vital Signs/Intake and Output Vital Signs (last 24 hours): Temp Pulse Resp BP Pulse Ox 97.7 F 63 16 132/63 100 06/20/18 12:00 06/20/18 12:00 06/20/18 12:00 06/20/18 12:00 06/20/18 09:09 Intake and Output: 06/20/18 06/20/18 06:59 18:59 Intake Total 133.3 84 Output Total 300 450 Balance -166.7 -366 - Medications Medications: Current Medications Aspirin (Aspirin Chewable) 81 mg PO DAILY [facility] Last Admin: 06/20/18 09:41 Dose: 81 mg Clopidogrel Bisulfate (Plavix) 75 mg PO DAILY [facility] Last Admin: 06/20/18 09:41 Dose: 75 mg Dextrose (Dextrose 50% Inj) 0 ml IV STAT PRN; Protocol PRN Reason: Hypoglycemia Protocol Dextrose (Glutose 15) 0 gm PO ONCE PRN; Protocol PRN Reason: Hypoglycemia Protocol Famotidine (Pepcid) 40 mg PO DAILY [facility] Last Admin: 06/19/18 10:43 Dose: 40 mg Glucagon (Glucagen Diagnostic Kit) 0 mg IM STAT PRN; Protocol PRN Reason: Hypoglycemia Protocol Heparin Sodium/Sodium Chloride (Heparin 58060 Units/250ml 1/2 Normal Saline) 25 ,000 units in 250 mls @ 9.081 mls/hr IV .Q24H PRN; Protocol; 13 UNITS/KG/HR PRN Reason: ADJUST RATE PER PROTOCOL Last Titration: 06/20/18 10:00 Dose: 0 units/kg/hr, 0 mls/hr Dextrose (Dextrose 5% In Water 1000 Ml) 1,000 mls @ 0 mls/hr IV .Q0M PRN; Protocol; Per Protocol PRN Reason: Hypoglycemia Protocol Dextrose/Sodium Chloride (Dextrose 5%/0.45% Ns 1000 Ml) 1,000 mls @ 40 mls/hr IV .Q24H [facility] Last Admin: 06/20/18 09:45 Dose: 40 mls/hr Insulin Human Regular (Novolin R) 0 unit SC ACHS [facility] PRN Reason: Protocol Last Admin: 06/20/18 11:46 Dose: Not Given Levothyroxine Sodium (Synthroid) 125 mcg PO DAILY@0630 [facility] Last Admin: 06/20/18 05:54 Dose: 125 mcg Lisinopril (Zestril) 2.5 mg PO DAILY [facility] Last Admin: 06/19/18 10:43 Dose: 2.5 mg Metoprolol Succinate (Toprol Xl) 25 mg PO DAILY [facility] Rosuvastatin Calcium (Crestor) 10 mg PO HS [facility] Last Admin: 06/19/18 21:27 Dose: 10 mg Spironolactone (Aldactone) 25 mg PO DAILY [facility] Last Admin: 06/19/18 10:47 Dose: 25 mg - Labs Labs: 06/20/18 05:35 06/20/18 05:35 PT 11.7 SECONDS (9.7-12.2) 06/18/18 11:57 INR 1.1 06/18/18 11:57 APTT 47 SECONDS (21-34) H D 06/20/18 05:35 - Constitutional Appears: Non-toxic, No Acute Distress - Head Exam Head Exam: NORMAL INSPECTION - Eye Exam Eye Exam: EOMI - ENT Exam ENT Exam: Mucous Membranes Moist - Respiratory Exam Respiratory Exam: Clear to Ausculation Bilateral, NORMAL BREATHING PATTERN. absent: Rales, Rhonchi, Wheezes - Cardiovascular Exam Cardiovascular Exam: REGULAR RHYTHM, +S1, +S2 - GI/Abdominal Exam GI & Abdominal Exam: Soft, Normal Bowel Sounds. absent: Distended, Firm, Guarding, Rigid, Tenderness, Rebound - Extremities Exam Extremities Exam: absent: Pedal Edema, Tenderness Additional comments: T-band over the right wrist - Neurological Exam Neurological Exam: Alert, Awake - Skin Skin Exam: Dry, Intact, Normal Color, Warm. absent: Rash Assessment and Plan (1) Unstable angina Assessment & Plan: 1. Chest pain R/O ACS (History of CAD S/P Stent August 2017 and HFrEF/Systolic HF) Cardiology(Dr. Olea) on the case-->help appreciated Echocardiogram 06/18/18 :EF 25-30% :Global hypokinesis of left ventricle :Grade II pseudonormal filling dynamics :Mitral reugurgitation is mild to moderate :Mild tricuspid regurgitation Prior cardiac cath (08/30/17): stent in proximal LAD and plain balloon angioplasty of the distal LAD lesion. ASA 81 mg PO 1x/day Plavix 75 mg PO 1x/day Zestril 2.5 mg PO 1x/day Crestor 10 mg PO HS Spiranolactone 25 mg PO 1x/day Start Toprol XL 25mg PO daily Heparin Drip to be resumed at 1:30PM For Cardiac Catheterization with Dr. Allyson Olea on 06/20/18-->patient received stent at the left main artery and lesion of proximal LAD; we will need to follow -up with cardiology Status: Acute (2) Coronary artery disease due to lipid rich plaque Assessment & Plan: Cardiology(Dr. Olea) on the case-->help appreciated Echocardiogram 06/18/18 :EF 25-30% :Global hypokinesis of left ventricle :Grade II pseudonormal filling dynamics :Mitral reugurgitation is mild to moderate :Mild tricuspid regurgitation Prior cardiac cath (08/30/17): stent in proximal LAD and plain balloon angioplasty of the distal LAD lesion. ASA 81 mg PO 1x/day Plavix 75 mg PO 1x/day Zestril 2.5 mg PO 1x/day Crestor 10 mg PO HS Spiranolactone 25 mg PO 1x/day Start Toprol XL 25mg PO daily Heparin Drip to be resumed at 1:30PM For Cardiac Catheterization with Dr. Allyson Olea on 06/20/18-->patient received stent at the left main artery and lesion of proximal LAD; we will need to follow -up with cardiology; awaiting official report Status: Acute (3) Hyperlipidemia Assessment & Plan: 2. Hx Hypertension Hold Lasix 40mg PO Daily start Metoprolol 25mg PO BID (1/2 tab) today Hold Isosorbide monomer 30mg PO Daily Zestril 2.5 mg PO 1x/day Status: Chronic (4) Hypothyroidism Assessment & Plan: Levothyroxine 125mcg PO Daily TSH low at 0.7 but Free T4 normal at 1.56 Status: Chronic (5) Pericardial effusion Assessment & Plan: As per previous Echo in 2017 Cardiology (Dr. Olea) on the case-->help appreciated Echocardiogram 06/18/18 :EF 25-30% :Global hypokinesis of left ventricle :Grade II pseudonormal filling dynamics :Mitral regurgitation is mild to moderate :Mild tricuspid regurgitation No pericardial effusion noted on 06/18/18 echo Status: Resolved (6) Systolic dysfunction with heart failure Assessment & Plan: Echocardiogram 06/18/18 :EF 25-30% :Global hypokinesis of left ventricle :Grade II pseudonormal filling dynamics :Mitral reugurgitation is mild to moderate :Mild tricuspid regurgitation ASA 81 mg PO 1x/day Plavix 75 mg PO 1x/day Zestril 2.5 mg PO 1x/day Crestor 10 mg PO HS Aldactone 25 mg PO 1x/day Start Toprol XL 25mg PO daily Heparin Drip to be resumed at 1:30PM For Cardiac Catheterization with Dr. Allyson Olea on 06/20/18-->patient received stent at the left main artery and lesion of proximal LAD; we will need to follow -up with cardiology Lasix on hold due to borderline low blood pressure yesterdary Intake and output Fluid restriction Status: Acute (7) Prophylactic measure Assessment & Plan: 7. Prophylaxis No GI ppx indicated at this time Heparin Drip Status: Acute
--- NOTE | 2018-06-20 13:02 | CP.CCUPN ---
<Nisreen Dominique P - Last Filed: 06/20/18 19:38> CCU Subjective - Physician Review Subjective (Free Text): PGY-1 Critical care progress note. Patient seen and examined at bedside. Patient is in no acute distress, resting comfortably. 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 Denies chest pain, shortness of breath, lightheadedness, nausea, vomiting, abdominal pain, and extremity swelling. CCU Objective - Vital Signs / Intake & Output Vital Signs (Last 4 hours): Vital Signs Temp Pulse Resp BP Pulse Ox 06/20/18 12:30 67 17 119/62 100 06/20/18 12:15 65 17 127/63 100 06/20/18 12:00 97.7 F 70 16 132/63 99 06/20/18 11:45 97.6 F 70 17 130/63 97 06/20/18 11:30 97.6 F 62 18 126/67 06/20/18 11:16 73 15 123/61 06/20/18 11:15 97.8 F 68 18 123/61 06/20/18 11:14 79 12 06/20/18 09:09 70 21 129/72 100 Intake and Output (Last 8hrs): Intake & Output 06/19/18 06/20/18 06/20/18 22:59 06:59 14:59 Intake Total 863.7 106 241 Output Total 700 450 Balance 163.7 106 -209 Weight 148 lb 5.938 oz Intake: IV 50 70 Intake, IV Amount 263.7 56 171 Left Antecubital 150 Left Proximal Port 63.7 56 21 Antecubital Right Antecubital 0 Right Hand 200 Oral 600 Output: Urine 700 450 Urine, Voided 700 450 Stool 0 Emesis 0 Other: # Voids Urine, Voided 1 - Physical Exam Head: Positive for: Atraumatic, Normocephalic Pupils: Positive for: PERRL Extroacular Muscles: Positive for: EOMI Conjunctiva: Positive for: Normal Respiratory/Chest: Positive for: Clear to Auscultation. Negative for: Respiratory Distress, Wheezes, Rales, Rhonchi Cardiovascular: Positive for: Regular Rate and Rhythm, Normal S1, S2 Abdomen: Positive for: Normal Bowel Sounds. Negative for: Tenderness, Distention, Rebound, Guarding Lower Extremity: Positive for: Normal Inspection. Negative for: Edema, CALF TENDERNESS - Medications Active Medications: Active Medications Generic Name Dose Route Start Last Admin Trade Name Renetta PRN Reason Stop Dose Admin Aspirin 81 mg 06/19/18 10:00 06/20/18 09:41 Aspirin Chewable PO 81 mg DAILY CHELY Administration Clopidogrel Bisulfate 75 mg 06/19/18 10:00 06/20/18 09:41 Plavix PO 75 mg DAILY CHELY Administration Dextrose 0 ml 06/19/18 13:43 Dextrose 50% Inj IV STAT PRN Hypoglycemia Protocol Protocol Dextrose 0 gm 06/19/18 13:43 Glutose 15 PO ONCE PRN Hypoglycemia Protocol Protocol Famotidine 40 mg 06/19/18 10:00 06/19/18 10:43 Pepcid PO 40 mg DAILY CHELY Administration Glucagon 0 mg 06/19/18 13:43 Glucagen Diagnostic Kit IM STAT PRN Hypoglycemia Protocol Protocol Heparin Sodium/Sodium Chloride 25,000 units in 250 mls @ 9.081 mls/hr 12:40 06/20/18 10:00 Heparin 08611 Units/250ml 1/2 Normal Saline IV 0 units/kg/hr .Q24H PRN 0 mls/hr ADJUST RATE PER PROTOCOL Titration Protocol 13 UNITS/KG/HR Dextrose 1,000 mls @ 0 mls/hr 06/19/18 13:43 Dextrose 5% In Water 1000 Ml IV .Q0M PRN Hypoglycemia Protocol Protocol Per Protocol Dextrose/Sodium Chloride 1,000 mls @ 40 mls/hr 06/20/18 09:45 06/20/18 09:45 Dextrose 5%/0.45% Ns 1000 Ml IV 40 mls/hr .Q24H CHELY Administration Insulin Human Regular 0 unit 06/19/18 16:30 06/20/18 11:46 Novolin R SC Not Given ACHS CHELY Protocol Levothyroxine Sodium 125 mcg 06/19/18 06:30 06/20/18 05:54 Synthroid PO 125 mcg DAILY@0630 CHELY Administration Lisinopril 2.5 mg 06/19/18 10:00 06/19/18 10:43 Zestril PO 2.5 mg DAILY CHELY Administration Metoprolol Succinate 25 mg 06/20/18 10:15 Toprol Xl PO DAILY CHELY Rosuvastatin Calcium 10 mg 06/18/18 22:00 06/19/18 21:27 Crestor PO 10 mg HS CHELY Administration Spironolactone 25 mg 06/19/18 11:00 06/19/18 10:47 Aldactone PO 25 mg DAILY CHELY Administration - Patient Studies Lab Studies: Microbiology Studies 06/18/18 14:43 MRSA Culture (Admit) - Final Naris MRSA NOT DETECTED Lab Studies 06/20/18 06/20/18 06/20/18 Range/Units 11:30 07:29 05:35 WBC (4.8-10.8) K/uL RBC (3.80-5.20) Mil/uL Hgb (11.0-16.0) g/dL Hct (34.0-47.0) % MCV (81.0-99.0) fL MCH (27.0-31.0) pg MCHC (33.0-37.0) g/dL RDW (11.5-14.5) % Plt Count (130-400) K/uL MPV (7.2-11.7) fL Neut % (Auto) (50.0-75.0) % Lymph % (Auto) (20.0-40.0) % Guthrie % (Auto) (0.0-10.0) % Eos % (Auto) (0.0-4.0) % Baso % (Auto) (0.0-2.0) % Neut # (Auto) (1.8-7.0) K/uL Lymph # (Auto) (1.0-4.3) K/uL Guthrie # (Auto) (0.0-0.8) K/uL Eos # (Auto) (0.0-0.7) K/uL Baso # (Auto) (0.0-0.2) K/uL APTT 47 H D (21-34) SECONDS Sodium (132-148) mmol/L Potassium (3.6-5.2) mmol/L Chloride (98-107) mmol/L Carbon Dioxide (22-30) mmol/L Anion Gap (10-20) BUN (7-17) mg/dL Creatinine (0.7-1.2) mg/dL Est GFR ( Amer) Est GFR (Non-Af Amer) POC Glucose (mg/dL) 71 74 (65-110) mg/dL Random Glucose (65-105) mg/dL Calcium (8.6-10.4) mg/dl Phosphorus (2.5-4.5) mg/dL Magnesium (1.6-2.3) mg/dL Total Bilirubin (0.2-1.3) mg/dL AST (14-36) U/L ALT (9-52) U/L Alkaline Phosphatase (38-126) U/L Total Protein (6.3-8.3) g/dL Albumin (3.5-5.0) g/dL Globulin (2.2-3.9) gm/dL Albumin/Globulin Ratio (1.0-2.1) 06/20/18 06/20/18 06/20/18 Range/Units 05:35 05:35 05:35 WBC 6.9 (4.8-10.8) K/uL RBC 4.01 (3.80-5.20) Mil/uL Hgb 11.6 (11.0-16.0) g/dL Hct 34.0 (34.0-47.0) % MCV 84.8 (81.0-99.0) fL MCH 28.8 (27.0-31.0) pg MCHC 34.0 (33.0-37.0) g/dL RDW 13.9 (11.5-14.5) % Plt Count 222 (130-400) K/uL MPV 9.4 (7.2-11.7) fL Neut % (Auto) 65.8 (50.0-75.0) % Lymph % (Auto) 22.4 (20.0-40.0) % Guthrie % (Auto) 8.6 (0.0-10.0) % Eos % (Auto) 2.4 (0.0-4.0) % Baso % (Auto) 0.8 (0.0-2.0) % Neut # (Auto) 4.5 (1.8-7.0) K/uL Lymph # (Auto) 1.5 (1.0-4.3) K/uL Guthrie # (Auto) 0.6 (0.0-0.8) K/uL Eos # (Auto) 0.2 (0.0-0.7) K/uL Baso # (Auto) 0.1 (0.0-0.2) K/uL APTT (21-34) SECONDS Sodium 140 (132-148) mmol/L Potassium 4.0 (3.6-5.2) mmol/L Chloride 106 (98-107) mmol/L Carbon Dioxide 25 (22-30) mmol/L Anion Gap 13 (10-20) BUN 12 (7-17) mg/dL Creatinine 0.8 (0.7-1.2) mg/dL Est GFR ( Amer) > 60 Est GFR (Non-Af Amer) > 60 POC Glucose (mg/dL) (65-110) mg/dL Random Glucose 100 (65-105) mg/dL Calcium 9.5 (8.6-10.4) mg/dl Phosphorus 3.9 (2.5-4.5) mg/dL Magnesium 1.9 (1.6-2.3) mg/dL Total Bilirubin 0.9 (0.2-1.3) mg/dL AST 58 H D (14-36) U/L ALT 41 (9-52) U/L Alkaline Phosphatase 140 H (38-126) U/L Total Protein 6.4 (6.3-8.3) g/dL Albumin 3.7 (3.5-5.0) g/dL Globulin 2.7 (2.2-3.9) gm/dL Albumin/Globulin Ratio 1.4 (1.0-2.1) 06/19/18 06/19/18 06/19/18 Range/Units 21:19 21:05 16:10 WBC (4.8-10.8) K/uL RBC (3.80-5.20) Mil/uL Hgb (11.0-16.0) g/dL Hct (34.0-47.0) % MCV (81.0-99.0) fL MCH (27.0-31.0) pg MCHC (33.0-37.0) g/dL RDW (11.5-14.5) % Plt Count (130-400) K/uL MPV (7.2-11.7) fL Neut % (Auto) (50.0-75.0) % Lymph % (Auto) (20.0-40.0) % Guthrie % (Auto) (0.0-10.0) % Eos % (Auto) (0.0-4.0) % Baso % (Auto) (0.0-2.0) % Neut # (Auto) (1.8-7.0) K/uL Lymph # (Auto) (1.0-4.3) K/uL Guthrie # (Auto) (0.0-0.8) K/uL Eos # (Auto) (0.0-0.7) K/uL Baso # (Auto) (0.0-0.2) K/uL APTT 154 H* D (21-34) SECONDS Sodium (132-148) mmol/L Potassium (3.6-5.2) mmol/L Chloride (98-107) mmol/L Carbon Dioxide (22-30) mmol/L Anion Gap (10-20) BUN (7-17) mg/dL Creatinine (0.7-1.2) mg/dL Est GFR ( Amer) Est GFR (Non-Af Amer) POC Glucose (mg/dL) 95 80 (65-110) mg/dL Random Glucose (65-105) mg/dL Calcium (8.6-10.4) mg/dl Phosphorus (2.5-4.5) mg/dL Magnesium (1.6-2.3) mg/dL Total Bilirubin (0.2-1.3) mg/dL AST (14-36) U/L ALT (9-52) U/L Alkaline Phosphatase (38-126) U/L Total Protein (6.3-8.3) g/dL Albumin (3.5-5.0) g/dL Globulin (2.2-3.9) gm/dL Albumin/Globulin Ratio (1.0-2.1) Laboratory Results - last 24 hr 06/19/18 06/19/18 06/19/18 16:10 21:05 21:19 WBC RBC Hgb Hct MCV MCH MCHC RDW Plt Count MPV Neut % (Auto) Lymph % (Auto) Guthrie % (Auto) Eos % (Auto) Baso % (Auto) Neut # (Auto) Lymph # (Auto) Guthrie # (Auto) Eos # (Auto) Baso # (Auto) APTT 154 H* D Sodium Potassium Chloride Carbon Dioxide Anion Gap BUN Creatinine Est GFR ( Amer) Est GFR (Non-Af Amer) POC Glucose (mg/dL) 80 95 Random Glucose Calcium Phosphorus Magnesium Total Bilirubin AST ALT Alkaline Phosphatase Total Protein Albumin Globulin Albumin/Globulin Ratio 06/20/18 06/20/18 06/20/18 05:35 05:35 05:35 WBC 6.9 RBC 4.01 Hgb 11.6 Hct 34.0 MCV 84.8 MCH 28.8 MCHC 34.0 RDW 13.9 Plt Count 222 MPV 9.4 Neut % (Auto) 65.8 Lymph % (Auto) 22.4 Guthrie % (Auto) 8.6 Eos % (Auto) 2.4 Baso % (Auto) 0.8 Neut # (Auto) 4.5 Lymph # (Auto) 1.5 Guthrie # (Auto) 0.6 Eos # (Auto) 0.2 Baso # (Auto) 0.1 APTT Sodium 140 Potassium 4.0 Chloride 106 Carbon Dioxide 25 Anion Gap 13 BUN 12 Creatinine 0.8 Est GFR ( Amer) > 60 Est GFR (Non-Af Amer) > 60 POC Glucose (mg/dL) Random Glucose 100 Calcium 9.5 Phosphorus 3.9 Magnesium 1.9 Total Bilirubin 0.9 AST 58 H D ALT 41 Alkaline Phosphatase 140 H Total Protein 6.4 Albumin 3.7 Globulin 2.7 Albumin/Globulin Ratio 1.4 06/20/18 06/20/18 06/20/18 05:35 07:29 11:30 WBC RBC Hgb Hct MCV MCH MCHC RDW Plt Count MPV Neut % (Auto) Lymph % (Auto) Guthrie % (Auto) Eos % (Auto) Baso % (Auto) Neut # (Auto) Lymph # (Auto) Guthrie # (Auto) Eos # (Auto) Baso # (Auto) APTT 47 H D Sodium Potassium Chloride Carbon Dioxide Anion Gap BUN Creatinine Est GFR ( Amer) Est GFR (Non-Af Amer) POC Glucose (mg/dL) 74 71 Random Glucose Calcium Phosphorus Magnesium Total Bilirubin AST ALT Alkaline Phosphatase Total Protein Albumin Globulin Albumin/Globulin Ratio EKG/Cardiology Studies: Cardiology / EKG Studies 06/20/18 09:37 EKG [ELECTROCARDIOGRAM] Stat Comment: Mode Of Transportation: Reason For Exam: chest pain Fingerstick Blood Sugar Results: 71 Review of Systems - Review of Systems All systems: reviewed and no additional remarkable complaints except (as per HPI ) Critical Care Progress Note - Prophylaxis GI Prophylaxis GI: Pepsid - Prophylaxis DVT Prophylaxis DVT: Heparin SQ (heparin drip) - Nutrition Nutrition: Nutrition Category Date Time Status NPO Diet [DIET] Diets 06/20/18 Breakfast Active Assessment/Plan - Assessment and Plan (Free Text) Plan: This is a 58 year old female with PMHx CAD with catheterization and stent placement 08/2017, HF rEF, HTN, DM, HLD, hypothyroid who presented to the ED with c/o chest pain while doing laundry," and was admitted to ICU to titrate IV nitro for pain free state. Neuro: -Pt with no neurological symptoms. -monitor for mental status change Cardio: -Troponin:.043->14.1-> 10.8 - Echocardiogram 06/18/18: EF 25-30%, global hypokinesis of LV. Transmitral doppler flow pattern is grade II-pseudonormal filling dynamics. LV end diastolic pressure is severely elevated. MR is mild to moderate. Mild TR. - Pt for cath 06/20/18 - f/u cardiology recs -Lisinopril 2.5mg PO dialy, Toprol Xl 25mg PO daily, Crestor 10mg PO HS, Spironolactone 25mg PO daily, Plavix 75mg PO daily Pulm: -No complaints of difficulty breathing -CXR (06/18/18): mild to moderate pulmonary vascular congestion GI: -AST: 43-> 119 ->50; continue to monitor Renal: -BUN/Cr: 12/0.8, stable Endo: - maintain euglycemia - ISS -hypoglycemia protocol -Levothyroxine 125mcg daily Heme: -H/H stable, 11.6/34 -PTT: 47, therapeutic -Heparin drip held, restart 15:30. -P2Y12 (06/18/18): 102 PPX: SCDs, Pepcid 40mg PO daily Dispo: Continue ICU care Case was reviewed and discussed with attending physician, Dr. Anderson <Hal Anderson - Last Filed: 06/21/18 11:47> CCU Objective - Vital Signs / Intake & Output Vital Signs (Last 4 hours): Vital Signs Temp Pulse Resp BP Pulse Ox 06/21/18 08:00 98 F 97 H 13 103/53 L 98 Intake and Output (Last 8hrs): Intake & Output 06/20/18 06/21/18 06/21/18 22:59 06:59 14:59 Intake Total 918.9 467.2 116.8 Output Total 500 0 500 Balance 418.9 467.2 -383.2 Weight 148 lb 8 oz Intake: IV 45 Intake, IV Amount 453.9 467.2 116.8 Left Antecubital 400 400 100 Left Proximal Port 53.9 67.2 16.8 Antecubital Oral 420 0 Output: Urine 500 0 500 Urine, Voided 500 0 500 Other: # Voids Urine, Voided 1 1 # Bowel Movements 0 - Medications Active Medications: Active Medications Generic Name Dose Route Start Last Admin Trade Name Freq PRN Reason Stop Dose Admin Aspirin 81 mg 06/19/18 10:00 06/21/18 10:00 Aspirin Chewable PO Not Given DAILY [facility] Clopidogrel Bisulfate 75 mg 06/19/18 10:00 06/21/18 10:00 Plavix PO Not Given DAILY [facility] Dextrose 0 ml 06/19/18 13:43 Dextrose 50% Inj IV STAT PRN Hypoglycemia Protocol Protocol Dextrose 0 gm 06/19/18 13:43 Glutose 15 PO ONCE PRN Hypoglycemia Protocol Protocol Famotidine 40 mg 06/19/18 10:00 06/21/18 10:00 Pepcid PO Not Given DAILY [facility] Glucagon 0 mg 06/19/18 13:43 Glucagen Diagnostic Kit IM STAT PRN Hypoglycemia Protocol Protocol Heparin Sodium/Sodium Chloride 25,000 units in 250 mls @ 9.081 mls/hr 12:40 06/20/18 22:00 Heparin 13488 Units/250ml 1/2 Normal Saline IV 12 units/kg/hr .Q24H PRN 8.382 mls/hr ADJUST RATE PER PROTOCOL Titration Protocol 13 UNITS/KG/HR Dextrose 1,000 mls @ 0 mls/hr 06/19/18 13:43 Dextrose 5% In Water 1000 Ml IV .Q0M PRN Hypoglycemia Protocol Protocol Per Protocol Dextrose/Sodium Chloride 1,000 mls @ 40 mls/hr 06/20/18 09:45 06/21/18 09:45 Dextrose 5%/0.45% Ns 1000 Ml IV Not Given .Q24H [facility] Insulin Human Regular 0 unit 06/19/18 16:30 06/21/18 07:51 Novolin R SC Not Given ACHS [facility] Protocol Levothyroxine Sodium 125 mcg 06/19/18 06:30 06/21/18 06:32 Synthroid PO 125 mcg DAILY@0630 CHELY Administration Lisinopril 2.5 mg 06/19/18 10:00 06/21/18 10:00 Zestril PO Not Given DAILY [facility] Metoprolol Succinate 25 mg 06/20/18 10:15 06/21/18 10:00 Toprol Xl PO Not Given DAILY [facility] Rosuvastatin Calcium 10 mg 06/18/18 22:00 06/20/18 21:52 Crestor PO 10 mg HS CHELY Administration Spironolactone 25 mg 06/19/18 11:00 06/21/18 10:00 Aldactone PO Not Given DAILY CHELY - Patient Studies Lab Studies: Lab Studies 06/21/18 06/21/18 06/21/18 Range/Units 07:35 05:11 05:11 WBC (4.8-10.8) K/uL RBC (3.80-5.20) Mil/uL Hgb (11.0-16.0) g/dL Hct (34.0-47.0) % MCV (81.0-99.0) fL MCH (27.0-31.0) pg MCHC (33.0-37.0) g/dL RDW (11.5-14.5) % Plt Count (130-400) K/uL MPV (7.2-11.7) fL Neut % (Auto) (50.0-75.0) % Lymph % (Auto) (20.0-40.0) % Guthrie % (Auto) (0.0-10.0) % Eos % (Auto) (0.0-4.0) % Baso % (Auto) (0.0-2.0) % Neut # (Auto) (1.8-7.0) K/uL Lymph # (Auto) (1.0-4.3) K/uL Guthrie # (Auto) (0.0-0.8) K/uL Eos # (Auto) (0.0-0.7) K/uL Baso # (Auto) (0.0-0.2) K/uL APTT 55 H D (21-34) SECONDS Sodium 138 (132-148) mmol/L Potassium 4.0 (3.6-5.2) mmol/L Chloride 106 (98-107) mmol/L Carbon Dioxide 24 (22-30) mmol/L Anion Gap 13 (10-20) BUN 17 (7-17) mg/dL Creatinine 1.0 (0.7-1.2) mg/dL Est GFR ( Amer) > 60 Est GFR (Non-Af Amer) 57 POC Glucose (mg/dL) 102 (65-110) mg/dL Random Glucose 110 H (65-105) mg/dL Calcium 9.2 (8.6-10.4) mg/dl Total Bilirubin 0.3 (0.2-1.3) mg/dL AST 49 H (14-36) U/L ALT 40 (9-52) U/L Alkaline Phosphatase 129 H (38-126) U/L Total Protein 6.3 (6.3-8.3) g/dL Albumin 3.8 (3.5-5.0) g/dL Globulin 2.5 (2.2-3.9) gm/dL Albumin/Globulin Ratio 1.5 (1.0-2.1) 06/21/18 06/20/18 06/20/18 Range/Units 05:11 21:48 21:16 WBC 7.6 (4.8-10.8) K/uL RBC 3.80 (3.80-5.20) Mil/uL Hgb 10.8 L (11.0-16.0) g/dL Hct 32.3 L (34.0-47.0) % MCV 85.0 (81.0-99.0) fL MCH 28.4 (27.0-31.0) pg MCHC 33.5 (33.0-37.0) g/dL RDW 13.9 (11.5-14.5) % Plt Count 208 (130-400) K/uL MPV 9.6 (7.2-11.7) fL Neut % (Auto) 67.7 (50.0-75.0) % Lymph % (Auto) 18.7 L (20.0-40.0) % Guthrie % (Auto) 9.1 (0.0-10.0) % Eos % (Auto) 3.7 (0.0-4.0) % Baso % (Auto) 0.8 (0.0-2.0) % Neut # (Auto) 5.1 (1.8-7.0) K/uL Lymph # (Auto) 1.4 (1.0-4.3) K/uL Guthrie # (Auto) 0.7 (0.0-0.8) K/uL Eos # (Auto) 0.3 (0.0-0.7) K/uL Baso # (Auto) 0.1 (0.0-0.2) K/uL APTT 42 H D (21-34) SECONDS Sodium (132-148) mmol/L Potassium (3.6-5.2) mmol/L Chloride (98-107) mmol/L Carbon Dioxide (22-30) mmol/L Anion Gap (10-20) BUN (7-17) mg/dL Creatinine (0.7-1.2) mg/dL Est GFR ( Amer) Est GFR (Non-Af Amer) POC Glucose (mg/dL) 96 (65-110) mg/dL Random Glucose (65-105) mg/dL Calcium (8.6-10.4) mg/dl Total Bilirubin (0.2-1.3) mg/dL AST (14-36) U/L ALT (9-52) U/L Alkaline Phosphatase (38-126) U/L Total Protein (6.3-8.3) g/dL Albumin (3.5-5.0) g/dL Globulin (2.2-3.9) gm/dL Albumin/Globulin Ratio (1.0-2.1) 06/20/18 06/20/18 Range/Units 16:04 11:30 WBC (4.8-10.8) K/uL RBC (3.80-5.20) Mil/uL Hgb (11.0-16.0) g/dL Hct (34.0-47.0) % MCV (81.0-99.0) fL MCH (27.0-31.0) pg MCHC (33.0-37.0) g/dL RDW (11.5-14.5) % Plt Count (130-400) K/uL MPV (7.2-11.7) fL Neut % (Auto) (50.0-75.0) % Lymph % (Auto) (20.0-40.0) % Guthrie % (Auto) (0.0-10.0) % Eos % (Auto) (0.0-4.0) % Baso % (Auto) (0.0-2.0) % Neut # (Auto) (1.8-7.0) K/uL Lymph # (Auto) (1.0-4.3) K/uL Guthrie # (Auto) (0.0-0.8) K/uL Eos # (Auto) (0.0-0.7) K/uL Baso # (Auto) (0.0-0.2) K/uL APTT (21-34) SECONDS Sodium (132-148) mmol/L Potassium (3.6-5.2) mmol/L Chloride (98-107) mmol/L Carbon Dioxide (22-30) mmol/L Anion Gap (10-20) BUN (7-17) mg/dL Creatinine (0.7-1.2) mg/dL Est GFR ( Amer) Est GFR (Non-Af Amer) POC Glucose (mg/dL) 105 71 (65-110) mg/dL Random Glucose (65-105) mg/dL Calcium (8.6-10.4) mg/dl Total Bilirubin (0.2-1.3) mg/dL AST (14-36) U/L ALT (9-52) U/L Alkaline Phosphatase (38-126) U/L Total Protein (6.3-8.3) g/dL Albumin (3.5-5.0) g/dL Globulin (2.2-3.9) gm/dL Albumin/Globulin Ratio (1.0-2.1) Laboratory Results - last 24 hr 06/20/18 06/20/18 06/20/18 11:30 16:04 21:16 WBC RBC Hgb Hct MCV MCH MCHC RDW Plt Count MPV Neut % (Auto) Lymph % (Auto) Guthrie % (Auto) Eos % (Auto) Baso % (Auto) Neut # (Auto) Lymph # (Auto) Guthrie # (Auto) Eos # (Auto) Baso # (Auto) APTT Sodium Potassium Chloride Carbon Dioxide Anion Gap BUN Creatinine Est GFR ( Amer) Est GFR (Non-Af Amer) POC Glucose (mg/dL) 71 105 96 Random Glucose Calcium Total Bilirubin AST ALT Alkaline Phosphatase Total Protein Albumin Globulin Albumin/Globulin Ratio 06/20/18 06/21/18 06/21/18 21:48 05:11 05:11 WBC 7.6 RBC 3.80 Hgb 10.8 L Hct 32.3 L MCV 85.0 MCH 28.4 MCHC 33.5 RDW 13.9 Plt Count 208 MPV 9.6 Neut % (Auto) 67.7 Lymph % (Auto) 18.7 L Guthrie % (Auto) 9.1 Eos % (Auto) 3.7 Baso % (Auto) 0.8 Neut # (Auto) 5.1 Lymph # (Auto) 1.4 Guthrie # (Auto) 0.7 Eos # (Auto) 0.3 Baso # (Auto) 0.1 APTT 42 H D Sodium 138 Potassium 4.0 Chloride 106 Carbon Dioxide 24 Anion Gap 13 BUN 17 Creatinine 1.0 Est GFR ( Amer) > 60 Est GFR (Non-Af Amer) 57 POC Glucose (mg/dL) Random Glucose 110 H Calcium 9.2 Total Bilirubin 0.3 AST 49 H ALT 40 Alkaline Phosphatase 129 H Total Protein 6.3 Albumin 3.8 Globulin 2.5 Albumin/Globulin Ratio 1.5 06/21/18 06/21/18 05:11 07:35 WBC RBC Hgb Hct MCV MCH MCHC RDW Plt Count MPV Neut % (Auto) Lymph % (Auto) Guthrie % (Auto) Eos % (Auto) Baso % (Auto) Neut # (Auto) Lymph # (Auto) Guthrie # (Auto) Eos # (Auto) Baso # (Auto) APTT 55 H D Sodium Potassium Chloride Carbon Dioxide Anion Gap BUN Creatinine Est GFR ( Amer) Est GFR (Non-Af Amer) POC Glucose (mg/dL) 102 Random Glucose Calcium Total Bilirubin AST ALT Alkaline Phosphatase Total Protein Albumin Globulin Albumin/Globulin Ratio Critical Care Progress Note - Nutrition Nutrition: Nutrition Category Date Time Status Heart Healthy Diet [DIET] Diets 06/20/18 Lunch Active Attending/Attestation - Attestation I have personally seen and examined this patient.: Yes I have fully participated in the care of the patient.: Yes I have reviewed all pertinent clinical information: Yes Notes (Text): 06/21/18 11:47 Patient underwent angiogram, cardiac cath, stent placement. Postoperatively patient is doing well. We will closely monitor.
[2018-06-20] MEDS: Metoprolol Succinate 25 mg XL Tab PO SCH (14:18)
--- NOTE | 2018-06-20 21:51 | CARDCATH ---
PROCEDURE DATE: 06/20/2018 INDICATIONS: Rochelle Casper is a 58-year-old female, who presented to [facility] with non ST-elevation CA and diffuse ST changes. The patient underwent a cardiac catheterization for evaluation of non ST-elevation CA. PROCEDURES PERFORMED: Left heart catheterization with selective left and right coronary angiogram via right radial artery approach, 6-Mongolian right radial arterial access, wristband for hemostasis. TECHNIQUES FOR PROCEDURE: After obtaining informed consent, the patient was brought to the cardiac cath suite in post absorptive and non-sedated state. The patient was prepped and draped in the usual sterile fashion, 2% lidocaine was used for infiltration of anesthesia. Using modified Seldinger technique, a 6-Mongolian sheath was introduced into the right radial artery. Subsequently over a J-wire, JL4 and JR4 diagnostic catheters were used to engage the left and right coronary systems. Angiograms were obtained in different orthogonal views. Subsequently, a J-wire was used to exchange across the aortic valve. LV gram was obtained in the RM view. Hemodynamics were obtained and pullback gradients were noted. CORONARY ANATOMY: RIGHT CORONARY ARTERY: RCA has 95% stenosis, large size vessel has a mid 65% stenosis right dominant circulation, left main large-sized vessel, left circumflex 100% requiring total occlusion. Mid LAD stent patent, proximal LAD high grade 75% to 80% stenosis, collateral flow to the circumflex via left to left and right to left collaterals, left circumflex 100% occluded with right to left collaterals. Left ventricular ejection fraction 25% to 30%. EDP 17 mmHg. IMPRESSION: Severe two vessels coronary artery disease, cardiomyopathy, ejection fraction of 25%. RECOMMENDATIONS: The patient is to be evaluated for possible PCI of RCA and LAD with high risk angioplasty versus CABG. Kolby Olea MD
[2018-06-21 05:15] LABS: BASO # 0.1 K/uL (0.0-0.2); BASO % 0.8 % (0.0-2.0); EOS # 0.3 K/uL (0.0-0.7); EOS % 3.7 % (0.0-4.0); HEMOGLOBIN 10.8 g/dL (11.0-16.0); LYMPH # 1.4 K/uL (1.0-4.3); LYMPH % 18.7 % (20.0-40.0); MEAN CORPUSCULAR HEMOGLOBIN 28.4 pg (27.0-31.0); MEAN CORPUSCULAR HGB CONC 33.5 g/dL (33.0-37.0); MEAN PLATELET VOLUME 9.6 fL (7.2-11.7); MONO # 0.7 K/uL (0.0-0.8); MONO % 9.1 % (0.0-10.0); NEUT # 5.1 K/uL (1.8-7.0); NEUT % 67.7 % (50.0-75.0); RBC 3.8 Mil/uL (3.80-5.20); RED CELL DISTRIBUTION WIDTH 13.9 % (11.5-14.5); WHITE BLOOD COUNT 7.6 K/uL (4.8-10.8)
[2018-06-21 05:32] LABS: ALB/GLOB RATIO 1.5 (1.0-2.1); ALBUMIN 3.8 g/dL (3.5-5.0); ALT/SGPT 40 U/L (9-52); AST/SGOT 49 U/L (14-36); BLOOD UREA NITROGEN 17 mg/dL (7-17); CALCIUM 9.2 mg/dl (8.6-10.4); GFR AFRICAN-AMERICAN > 60; GFR NON-AFRICAN AMERICAN 57
[2018-06-21] MEDS: Levothyroxine 125 MCG TAB PO SCH (06:32)
[2018-06-21] MEDS: Metoprolol Succinate 25 mg XL Tab PO SCH ×2 (06:33→10:00)
[2018-06-21] MEDS: Dextrose 5%/0.45% NS 1,000 ML IV SCH ×3 (06:37→19:48)
[2018-06-21] MEDS: (Novolin R) Insulin Human Regular 100 units/ml vial SC SCH ×4 (07:51→22:00)
--- NOTE | 2018-06-21 08:19 | CP.CCUPN ---
<Nisreen Dominique P - Last Filed: 06/21/18 19:23> CCU Subjective - Physician Review Subjective (Free Text): PGY-1 Critical care progress note. Patient seen and examined at bedside. Patient status post angioplasty at [facility] with stent placement x2 in proximal and mid RCA. Pt is resting comfortably and eating. Denies chest pain, shortness of breath, nausea, vomiting, abdominal pain, lightheadedness and dizziness. CCU Objective - Vital Signs / Intake & Output Vital Signs (Last 4 hours): Vital Signs Pulse Resp BP Pulse Ox 06/21/18 07:00 65 19 100 06/21/18 06:03 103/53 L 06/21/18 06:00 76 18 100 06/21/18 05:03 115/48 L 06/21/18 05:00 63 19 100 Intake and Output (Last 8hrs): Intake & Output 06/20/18 06/21/18 06/21/18 22:59 06:59 14:59 Intake Total 918.9 467.2 58.4 Output Total 500 0 0 Balance 418.9 467.2 58.4 Weight 148 lb 8 oz Intake: IV 45 Intake, IV Amount 453.9 467.2 58.4 Left Antecubital 400 400 50 Left Proximal Port 53.9 67.2 8.4 Antecubital Oral 420 Output: Urine 500 0 0 Urine, Voided 500 0 0 Other: # Voids Urine, Voided 1 - Physical Exam Head: Positive for: Atraumatic, Normocephalic Pupils: Positive for: PERRL Extroacular Muscles: Positive for: EOMI Conjunctiva: Positive for: Normal Mouth: Positive for: Moist Mucous Membranes Respiratory/Chest: Positive for: Clear to Auscultation. Negative for: Respiratory Distress, Wheezes, Rales, Rhonchi Cardiovascular: Positive for: Regular Rate and Rhythm, Normal S1, S2 Abdomen: Positive for: Normal Bowel Sounds. Negative for: Tenderness, Distention, Rebound, Guarding Lower Extremity: Positive for: Normal Inspection. Negative for: Edema, CALF TENDERNESS Neurological: Positive for: CN II-XII Intact, Speech Normal Skin: Positive for: Warm, Dry, Normal Color Psychiatric: Positive for: Alert, Oriented x 3 - Medications Active Medications: Active Medications Generic Name Dose Route Start Last Admin Trade Name Freq PRN Reason Stop Dose Admin Aspirin 81 mg 06/19/18 10:00 06/21/18 06:32 Aspirin Chewable PO 81 mg DAILY CHELY Administration Clopidogrel Bisulfate 75 mg 06/19/18 10:00 06/21/18 06:33 Plavix PO 75 mg DAILY CHELY Administration Dextrose 0 ml 06/19/18 13:43 Dextrose 50% Inj IV STAT PRN Hypoglycemia Protocol Protocol Dextrose 0 gm 06/19/18 13:43 Glutose 15 PO ONCE PRN Hypoglycemia Protocol Protocol Famotidine 40 mg 06/19/18 10:00 06/20/18 14:18 Pepcid PO 40 mg DAILY CHELY Administration Glucagon 0 mg 06/19/18 13:43 Glucagen Diagnostic Kit IM STAT PRN Hypoglycemia Protocol Protocol Heparin Sodium/Sodium Chloride 25,000 units in 250 mls @ 9.081 mls/hr 12:40 06/20/18 22:00 Heparin 35409 Units/250ml 1/2 Normal Saline IV 12 units/kg/hr .Q24H PRN 8.382 mls/hr ADJUST RATE PER PROTOCOL Titration Protocol 13 UNITS/KG/HR Dextrose 1,000 mls @ 0 mls/hr 06/19/18 13:43 Dextrose 5% In Water 1000 Ml IV .Q0M PRN Hypoglycemia Protocol Protocol Per Protocol Dextrose/Sodium Chloride 1,000 mls @ 40 mls/hr 06/20/18 09:45 06/21/18 06:37 Dextrose 5%/0.45% Ns 1000 Ml IV 40 mls/hr .Q24H CHELY Administration Insulin Human Regular 0 unit 06/19/18 16:30 06/21/18 07:51 Novolin R SC Not Given ACHS CHELY Protocol Levothyroxine Sodium 125 mcg 06/19/18 06:30 06/21/18 06:32 Synthroid PO 125 mcg DAILY@0630 CHELY Administration Lisinopril 2.5 mg 06/19/18 10:00 06/21/18 06:34 Zestril PO 2.5 mg DAILY CHELY Administration Metoprolol Succinate 25 mg 06/20/18 10:15 06/21/18 06:33 Toprol Xl PO 25 mg DAILY CHELY Administration Rosuvastatin Calcium 10 mg 06/18/18 22:00 06/20/18 21:52 Crestor PO 10 mg HS CHELY Administration Spironolactone 25 mg 06/19/18 11:00 06/20/18 18:08 Aldactone PO 25 mg DAILY CHELY Administration - Patient Studies Lab Studies: Lab Studies 06/21/18 06/21/18 06/21/18 Range/Units 07:35 05:11 05:11 WBC (4.8-10.8) K/uL RBC (3.80-5.20) Mil/uL Hgb (11.0-16.0) g/dL Hct (34.0-47.0) % MCV (81.0-99.0) fL MCH (27.0-31.0) pg MCHC (33.0-37.0) g/dL RDW (11.5-14.5) % Plt Count (130-400) K/uL MPV (7.2-11.7) fL Neut % (Auto) (50.0-75.0) % Lymph % (Auto) (20.0-40.0) % [place] % (Auto) (0.0-10.0) % Eos % (Auto) (0.0-4.0) % Baso % (Auto) (0.0-2.0) % Neut # (Auto) (1.8-7.0) K/uL Lymph # (Auto) (1.0-4.3) K/uL [place] # (Auto) (0.0-0.8) K/uL Eos # (Auto) (0.0-0.7) K/uL Baso # (Auto) (0.0-0.2) K/uL APTT 55 H D (21-34) SECONDS Sodium 138 (132-148) mmol/L Potassium 4.0 (3.6-5.2) mmol/L Chloride 106 (98-107) mmol/L Carbon Dioxide 24 (22-30) mmol/L Anion Gap 13 (10-20) BUN 17 (7-17) mg/dL Creatinine 1.0 (0.7-1.2) mg/dL Est GFR ( Amer) > 60 Est GFR (Non-Af Amer) 57 POC Glucose (mg/dL) 102 (65-110) mg/dL Random Glucose 110 H (65-105) mg/dL Calcium 9.2 (8.6-10.4) mg/dl Total Bilirubin 0.3 (0.2-1.3) mg/dL AST 49 H (14-36) U/L ALT 40 (9-52) U/L Alkaline Phosphatase 129 H (38-126) U/L Total Protein 6.3 (6.3-8.3) g/dL Albumin 3.8 (3.5-5.0) g/dL Globulin 2.5 (2.2-3.9) gm/dL Albumin/Globulin Ratio 1.5 (1.0-2.1) 06/21/18 06/20/18 06/20/18 Range/Units 05:11 21:48 21:16 WBC 7.6 (4.8-10.8) K/uL RBC 3.80 (3.80-5.20) Mil/uL Hgb 10.8 L (11.0-16.0) g/dL Hct 32.3 L (34.0-47.0) % MCV 85.0 (81.0-99.0) fL MCH 28.4 (27.0-31.0) pg MCHC 33.5 (33.0-37.0) g/dL RDW 13.9 (11.5-14.5) % Plt Count 208 (130-400) K/uL MPV 9.6 (7.2-11.7) fL Neut % (Auto) 67.7 (50.0-75.0) % Lymph % (Auto) 18.7 L (20.0-40.0) % [place] % (Auto) 9.1 (0.0-10.0) % Eos % (Auto) 3.7 (0.0-4.0) % Baso % (Auto) 0.8 (0.0-2.0) % Neut # (Auto) 5.1 (1.8-7.0) K/uL Lymph # (Auto) 1.4 (1.0-4.3) K/uL [place] # (Auto) 0.7 (0.0-0.8) K/uL Eos # (Auto) 0.3 (0.0-0.7) K/uL Baso # (Auto) 0.1 (0.0-0.2) K/uL APTT 42 H D (21-34) SECONDS Sodium (132-148) mmol/L Potassium (3.6-5.2) mmol/L Chloride (98-107) mmol/L Carbon Dioxide (22-30) mmol/L Anion Gap (10-20) BUN (7-17) mg/dL Creatinine (0.7-1.2) mg/dL Est GFR ( Amer) Est GFR (Non-Af Amer) POC Glucose (mg/dL) 96 (65-110) mg/dL Random Glucose (65-105) mg/dL Calcium (8.6-10.4) mg/dl Total Bilirubin (0.2-1.3) mg/dL AST (14-36) U/L ALT (9-52) U/L Alkaline Phosphatase (38-126) U/L Total Protein (6.3-8.3) g/dL Albumin (3.5-5.0) g/dL Globulin (2.2-3.9) gm/dL Albumin/Globulin Ratio (1.0-2.1) 06/20/18 06/20/18 06/20/18 Range/Units 16:04 11:30 07:29 WBC (4.8-10.8) K/uL RBC (3.80-5.20) Mil/uL Hgb (11.0-16.0) g/dL Hct (34.0-47.0) % MCV (81.0-99.0) fL MCH (27.0-31.0) pg MCHC (33.0-37.0) g/dL RDW (11.5-14.5) % Plt Count (130-400) K/uL MPV (7.2-11.7) fL Neut % (Auto) (50.0-75.0) % Lymph % (Auto) (20.0-40.0) % [place] % (Auto) (0.0-10.0) % Eos % (Auto) (0.0-4.0) % Baso % (Auto) (0.0-2.0) % Neut # (Auto) (1.8-7.0) K/uL Lymph # (Auto) (1.0-4.3) K/uL [place] # (Auto) (0.0-0.8) K/uL Eos # (Auto) (0.0-0.7) K/uL Baso # (Auto) (0.0-0.2) K/uL APTT (21-34) SECONDS Sodium (132-148) mmol/L Potassium (3.6-5.2) mmol/L Chloride (98-107) mmol/L Carbon Dioxide (22-30) mmol/L Anion Gap (10-20) BUN (7-17) mg/dL Creatinine (0.7-1.2) mg/dL Est GFR ( Amer) Est GFR (Non-Af Amer) POC Glucose (mg/dL) 105 71 74 (65-110) mg/dL Random Glucose (65-105) mg/dL Calcium (8.6-10.4) mg/dl Total Bilirubin (0.2-1.3) mg/dL AST (14-36) U/L ALT (9-52) U/L Alkaline Phosphatase (38-126) U/L Total Protein (6.3-8.3) g/dL Albumin (3.5-5.0) g/dL Globulin (2.2-3.9) gm/dL Albumin/Globulin Ratio (1.0-2.1) Laboratory Results - last 24 hr 06/20/18 06/20/18 06/20/18 07:29 11:30 16:04 WBC RBC Hgb Hct MCV MCH MCHC RDW Plt Count MPV Neut % (Auto) Lymph % (Auto) [place] % (Auto) Eos % (Auto) Baso % (Auto) Neut # (Auto) Lymph # (Auto) [place] # (Auto) Eos # (Auto) Baso # (Auto) APTT Sodium Potassium Chloride Carbon Dioxide Anion Gap BUN Creatinine Est GFR ( Amer) Est GFR (Non-Af Amer) POC Glucose (mg/dL) 74 71 105 Random Glucose Calcium Total Bilirubin AST ALT Alkaline Phosphatase Total Protein Albumin Globulin Albumin/Globulin Ratio 06/20/18 06/20/18 06/21/18 21:16 21:48 05:11 WBC 7.6 RBC 3.80 Hgb 10.8 L Hct 32.3 L MCV 85.0 MCH 28.4 MCHC 33.5 RDW 13.9 Plt Count 208 MPV 9.6 Neut % (Auto) 67.7 Lymph % (Auto) 18.7 L [place] % (Auto) 9.1 Eos % (Auto) 3.7 Baso % (Auto) 0.8 Neut # (Auto) 5.1 Lymph # (Auto) 1.4 [place] # (Auto) 0.7 Eos # (Auto) 0.3 Baso # (Auto) 0.1 APTT 42 H D Sodium Potassium Chloride Carbon Dioxide Anion Gap BUN Creatinine Est GFR ( Amer) Est GFR (Non-Af Amer) POC Glucose (mg/dL) 96 Random Glucose Calcium Total Bilirubin AST ALT Alkaline Phosphatase Total Protein Albumin Globulin Albumin/Globulin Ratio 06/21/18 06/21/18 06/21/18 05:11 05:11 07:35 WBC RBC Hgb Hct MCV MCH MCHC RDW Plt Count MPV Neut % (Auto) Lymph % (Auto) [place] % (Auto) Eos % (Auto) Baso % (Auto) Neut # (Auto) Lymph # (Auto) [place] # (Auto) Eos # (Auto) Baso # (Auto) APTT 55 H D Sodium 138 Potassium 4.0 Chloride 106 Carbon Dioxide 24 Anion Gap 13 BUN 17 Creatinine 1.0 Est GFR ( Amer) > 60 Est GFR (Non-Af Amer) 57 POC Glucose (mg/dL) 102 Random Glucose 110 H Calcium 9.2 Total Bilirubin 0.3 AST 49 H ALT 40 Alkaline Phosphatase 129 H Total Protein 6.3 Albumin 3.8 Globulin 2.5 Albumin/Globulin Ratio 1.5 EKG/Cardiology Studies: Cardiology / EKG Studies 06/20/18 09:37 EKG [ELECTROCARDIOGRAM] Stat Comment: Mode Of Transportation: Reason For Exam: chest pain Fingerstick Blood Sugar Results: 102 Review of Systems - Review of Systems All systems: reviewed and no additional remarkable complaints except (as per HPI ) Critical Care Progress Note - Prophylaxis GI Prophylaxis GI: Pepsid - Prophylaxis DVT Prophylaxis DVT: SCDs - Nutrition Nutrition: Nutrition Category Date Time Status Heart Healthy Diet [DIET] Diets 06/20/18 Lunch Active Assessment/Plan - Assessment and Plan (Free Text) Plan: This is a 58 year old female with PMHx CAD with catheterization and stent placement 08/2017, HF rEF, HTN, DM, HLD, hypothyroid who presented to the ED with c/o chest pain "while doing laundry," and was admitted to ICU to titrate IV nitro for pain free state. Neuro: -Pt with no neurological symptoms. -monitor for mental status change Cardio: -Troponin:.043->14.1-> 10.8 - Echocardiogram 06/18/18: EF 25-30%, global hypokinesis of LV. Transmitral doppler flow pattern is grade II-pseudonormal filling dynamics. LV end diastolic pressure is severely elevated. MR is mild to moderate. Mild TR. - f/u cardiology recs - Pt for diagnostic cath 06/20/18- severe RCA and LAD disease, plan for angioplasty -06/21/18: Patient for angioplasty at [facility] with 2 stents to mid and proximal RCA. -Lisinopril 2.5mg PO dialy, Toprol Xl 25mg PO daily, Crestor 10mg PO HS, Spironolactone 25mg PO daily, Plavix 75mg PO daily Pulm: -No complaints of difficulty breathing -CXR (06/18/18): mild to moderate pulmonary vascular congestion GI: -AST downtrending; continue to monitor Renal: -BUN/Cr: 17/1.0, stable Endo: - maintain euglycemia - ISS -hypoglycemia protocol -Levothyroxine 125mcg daily Heme: -H/H stable, 11. -PTT: 47, therapeutic -Heparin drip dc'ed -P2Y12 (06/18/18): 102 PPX: SCDs, Pepcid 40mg PO daily Dispo: Continue ICU care Case was reviewed and discussed with attending physician, Dr. Mendez. <Colten Mendez - Last Filed: 06/22/18 17:25> CCU Objective - Vital Signs / Intake & Output Vital Signs (Last 4 hours): Vital Signs Pulse Resp BP 06/22/18 15:03 92 H 25 H 109/65 06/22/18 15:00 95 H 27 H 06/22/18 14:03 85 18 91/44 L 06/22/18 14:00 85 24 Intake and Output (Last 8hrs): Intake & Output 06/22/18 06/22/18 06/22/18 06:59 14:59 22:59 Intake Total 360 980 40 Output Total 400 1500 0 Balance -40 -520 40 Weight 149 lb 0.12 oz Intake: Intake, IV Amount 360 320 40 Left Wrist 360 320 40 Oral 660 Output: Urine 400 1500 0 Urine, Voided 400 1500 0 Other: # Voids Urine, Voided 1 # Bowel Movements 0 0 - Medications Active Medications: Active Medications Generic Name Dose Route Start Last Admin Trade Name Freq PRN Reason Stop Dose Admin Aspirin 81 mg 06/19/18 10:00 06/22/18 09:13 Aspirin Chewable PO 81 mg DAILY CHELY Administration Clopidogrel Bisulfate 75 mg 06/19/18 10:00 06/22/18 09:14 Plavix PO 75 mg DAILY CHELY Administration Dextrose 0 ml 06/19/18 13:43 Dextrose 50% Inj IV STAT PRN Hypoglycemia Protocol Protocol Dextrose 0 gm 06/19/18 13:43 Glutose 15 PO ONCE PRN Hypoglycemia Protocol Protocol Famotidine 40 mg 06/19/18 10:00 06/22/18 09:14 Pepcid PO 40 mg DAILY CHELY Administration Glucagon 0 mg 06/19/18 13:43 Glucagen Diagnostic Kit IM STAT PRN Hypoglycemia Protocol Protocol Heparin Sodium (Porcine) 5,000 units 06/22/18 22:00 Heparin SC Q8 CHELY Dextrose/Sodium Chloride 1,000 mls @ 40 mls/hr 06/20/18 09:45 06/22/18 16:43 Dextrose 5%/0.45% Ns 1000 Ml IV 40 mls/hr .Q24H CHELY Administration Insulin Human Regular 0 unit 06/19/18 16:30 06/22/18 16:39 Novolin R SC Not Given ACHS [facility] Protocol Levothyroxine Sodium 125 mcg 06/19/18 06:30 06/22/18 06:22 Synthroid PO 125 mcg DAILY@0630 CHELY Administration Lisinopril 2.5 mg 06/19/18 10:00 06/22/18 09:14 Zestril PO 2.5 mg DAILY CHELY Administration Metoprolol Succinate 25 mg 06/20/18 10:15 06/22/18 09:14 Toprol Xl PO 25 mg DAILY CHELY Administration Rosuvastatin Calcium 10 mg 06/18/18 22:00 06/21/18 22:15 Crestor PO 10 mg HS CHELY Administration Spironolactone 25 mg 06/19/18 11:00 06/22/18 09:14 Aldactone PO 25 mg DAILY CHELY Administration - Patient Studies Lab Studies: Lab Studies 06/22/18 06/22/18 06/22/18 Range/Units 16:21 11:39 07:12 WBC (4.8-10.8) K/uL RBC (3.80-5.20) Mil/uL Hgb (11.0-16.0) g/dL Hct (34.0-47.0) % MCV (81.0-99.0) fL MCH (27.0-31.0) pg MCHC (33.0-37.0) g/dL RDW (11.5-14.5) % Plt Count (130-400) K/uL MPV (7.2-11.7) fL Neut % (Auto) (50.0-75.0) % Lymph % (Auto) (20.0-40.0) % [place] % (Auto) (0.0-10.0) % Eos % (Auto) (0.0-4.0) % Baso % (Auto) (0.0-2.0) % Neut # (Auto) (1.8-7.0) K/uL Lymph # (Auto) (1.0-4.3) K/uL [place] # (Auto) (0.0-0.8) K/uL Eos # (Auto) (0.0-0.7) K/uL Baso # (Auto) (0.0-0.2) K/uL Sodium (132-148) mmol/L Potassium (3.6-5.2) mmol/L Chloride (98-107) mmol/L Carbon Dioxide (22-30) mmol/L Anion Gap (10-20) BUN (7-17) mg/dL Creatinine (0.7-1.2) mg/dL Est GFR ( Amer) Est GFR (Non-Af Amer) POC Glucose (mg/dL) 105 106 103 (65-110) mg/dL Random Glucose (65-105) mg/dL Calcium (8.6-10.4) mg/dl Phosphorus (2.5-4.5) mg/dL Magnesium (1.6-2.3) mg/dL Total Bilirubin (0.2-1.3) mg/dL AST (14-36) U/L ALT (9-52) U/L Alkaline Phosphatase (38-126) U/L Total Protein (6.3-8.3) g/dL Albumin (3.5-5.0) g/dL Globulin (2.2-3.9) gm/dL Albumin/Globulin Ratio (1.0-2.1) 06/22/18 06/22/18 06/21/18 Range/Units 06:21 06:21 21:05 WBC 6.3 (4.8-10.8) K/uL RBC 3.40 L (3.80-5.20) Mil/uL Hgb 10.0 L (11.0-16.0) g/dL Hct 28.7 L (34.0-47.0) % MCV 84.4 (81.0-99.0) fL MCH 29.3 (27.0-31.0) pg MCHC 34.7 (33.0-37.0) g/dL RDW 14.0 (11.5-14.5) % Plt Count 198 (130-400) K/uL MPV 9.3 (7.2-11.7) fL Neut % (Auto) 69.8 (50.0-75.0) % Lymph % (Auto) 16.4 L (20.0-40.0) % [place] % (Auto) 9.5 (0.0-10.0) % Eos % (Auto) 3.8 (0.0-4.0) % Baso % (Auto) 0.5 (0.0-2.0) % Neut # (Auto) 4.4 (1.8-7.0) K/uL Lymph # (Auto) 1.0 (1.0-4.3) K/uL [place] # (Auto) 0.6 (0.0-0.8) K/uL Eos # (Auto) 0.2 (0.0-0.7) K/uL Baso # (Auto) 0.0 (0.0-0.2) K/uL Sodium 141 (132-148) mmol/L Potassium 4.0 (3.6-5.2) mmol/L Chloride 108 H (98-107) mmol/L Carbon Dioxide 24 (22-30) mmol/L Anion Gap 13 (10-20) BUN 10 (7-17) mg/dL Creatinine 0.8 (0.7-1.2) mg/dL Est GFR ( Amer) > 60 Est GFR (Non-Af Amer) > 60 POC Glucose (mg/dL) 113 H (65-110) mg/dL Random Glucose 95 (65-105) mg/dL Calcium 9.1 (8.6-10.4) mg/dl Phosphorus 3.9 (2.5-4.5) mg/dL Magnesium 1.7 (1.6-2.3) mg/dL Total Bilirubin 0.5 (0.2-1.3) mg/dL AST 45 H (14-36) U/L ALT 46 (9-52) U/L Alkaline Phosphatase 118 (38-126) U/L Total Protein 5.8 L (6.3-8.3) g/dL Albumin 3.3 L (3.5-5.0) g/dL Globulin 2.5 (2.2-3.9) gm/dL Albumin/Globulin Ratio 1.3 (1.0-2.1) 06/21/18 06/21/18 06/21/18 Range/Units 19:27 19:03 19:01 WBC (4.8-10.8) K/uL RBC (3.80-5.20) Mil/uL Hgb (11.0-16.0) g/dL Hct (34.0-47.0) % MCV (81.0-99.0) fL MCH (27.0-31.0) pg MCHC (33.0-37.0) g/dL RDW (11.5-14.5) % Plt Count (130-400) K/uL MPV (7.2-11.7) fL Neut % (Auto) (50.0-75.0) % Lymph % (Auto) (20.0-40.0) % [place] % (Auto) (0.0-10.0) % Eos % (Auto) (0.0-4.0) % Baso % (Auto) (0.0-2.0) % Neut # (Auto) (1.8-7.0) K/uL Lymph # (Auto) (1.0-4.3) K/uL [place] # (Auto) (0.0-0.8) K/uL Eos # (Auto) (0.0-0.7) K/uL Baso # (Auto) (0.0-0.2) K/uL Sodium (132-148) mmol/L Potassium (3.6-5.2) mmol/L Chloride (98-107) mmol/L Carbon Dioxide (22-30) mmol/L Anion Gap (10-20) BUN (7-17) mg/dL Creatinine (0.7-1.2) mg/dL Est GFR ( Amer) Est GFR (Non-Af Amer) POC Glucose (mg/dL) 80 65 66 (65-110) mg/dL Random Glucose (65-105) mg/dL Calcium (8.6-10.4) mg/dl Phosphorus (2.5-4.5) mg/dL Magnesium (1.6-2.3) mg/dL Total Bilirubin (0.2-1.3) mg/dL AST (14-36) U/L ALT (9-52) U/L Alkaline Phosphatase (38-126) U/L Total Protein (6.3-8.3) g/dL Albumin (3.5-5.0) g/dL Globulin (2.2-3.9) gm/dL Albumin/Globulin Ratio (1.0-2.1) Laboratory Results - last 24 hr 06/21/18 06/21/18 06/21/18 19:01 19:03 19:27 WBC RBC Hgb Hct MCV MCH MCHC RDW Plt Count MPV Neut % (Auto) Lymph % (Auto) [place] % (Auto) Eos % (Auto) Baso % (Auto) Neut # (Auto) Lymph # (Auto) [place] # (Auto) Eos # (Auto) Baso # (Auto) Sodium Potassium Chloride Carbon Dioxide Anion Gap BUN Creatinine Est GFR ( Amer) Est GFR (Non-Af Amer) POC Glucose (mg/dL) 66 65 80 Random Glucose Calcium Phosphorus Magnesium Total Bilirubin AST ALT Alkaline Phosphatase Total Protein Albumin Globulin Albumin/Globulin Ratio 06/21/18 06/22/18 06/22/18 21:05 06:21 06:21 WBC 6.3 RBC 3.40 L Hgb 10.0 L Hct 28.7 L MCV 84.4 MCH 29.3 MCHC 34.7 RDW 14.0 Plt Count 198 MPV 9.3 Neut % (Auto) 69.8 Lymph % (Auto) 16.4 L [place] % (Auto) 9.5 Eos % (Auto) 3.8 Baso % (Auto) 0.5 Neut # (Auto) 4.4 Lymph # (Auto) 1.0 [place] # (Auto) 0.6 Eos # (Auto) 0.2 Baso # (Auto) 0.0 Sodium 141 Potassium 4.0 Chloride 108 H Carbon Dioxide 24 Anion Gap 13 BUN 10 Creatinine 0.8 Est GFR ( Amer) > 60 Est GFR (Non-Af Amer) > 60 POC Glucose (mg/dL) 113 H Random Glucose 95 Calcium 9.1 Phosphorus 3.9 Magnesium 1.7 Total Bilirubin 0.5 AST 45 H ALT 46 Alkaline Phosphatase 118 Total Protein 5.8 L Albumin 3.3 L Globulin 2.5 Albumin/Globulin Ratio 1.3 06/22/18 06/22/18 06/22/18 07:12 11:39 16:21 WBC RBC Hgb Hct MCV MCH MCHC RDW Plt Count MPV Neut % (Auto) Lymph % (Auto) [place] % (Auto) Eos % (Auto) Baso % (Auto) Neut # (Auto) Lymph # (Auto) [place] # (Auto) Eos # (Auto) Baso # (Auto) Sodium Potassium Chloride Carbon Dioxide Anion Gap BUN Creatinine Est GFR ( Amer) Est GFR (Non-Af Amer) POC Glucose (mg/dL) 103 106 105 Random Glucose Calcium Phosphorus Magnesium Total Bilirubin AST ALT Alkaline Phosphatase Total Protein Albumin Globulin Albumin/Globulin Ratio Critical Care Progress Note - Nutrition Nutrition: Nutrition Category Date Time Status Heart Healthy Diet [DIET] Diets 06/20/18 Lunch Active Attending/Attestation - Attestation I have personally seen and examined this patient.: Yes I have fully participated in the care of the patient.: Yes I have reviewed all pertinent clinical information: Yes Notes (Text): Patient seen and examined Patient status post angioplasty at [facility] with stent placement x2 in proximal and mid RCA
--- NOTE | 2018-06-21 14:41 | CARD ---
APPROVED REPORT Date of service: 06/18/2018 EKG Measurement Heart [id number] <Conclusion> Sinus tachycardia Possible Left atrial enlargement Anterior infarct, age undetermined ST & T wave abnormality, consider inferolateral ischemia Abnormal ECG
--- NOTE | 2018-06-21 14:41 | CARD ---
APPROVED REPORT Date of service: 06/20/2018 EKG Measurement Heart [id number] <Conclusion> Normal sinus rhythm T wave abnormality, consider inferior ischemia T wave abnormality, consider anterolateral ischemia Prolonged QT Abnormal ECG
--- NOTE | 2018-06-21 14:42 | CARD ---
APPROVED REPORT Date of service: 06/18/2018 EKG Measurement Heart [id number] <Conclusion> Sinus tachycardia Possible Left atrial enlargement Septal infarct, age undetermined Marked ST abnormality, possible inferior subendocardial injury Abnormal ECG
--- NOTE | 2018-06-21 15:36 | CP.PCM.PN ---
Subjective - Date & Time of Evaluation Date of Evaluation: 06/21/18 Time of Evaluation: 11:00 - Subjective Subjective: Attempted to see the patient but is at [place]. Objective - Vital Signs/Intake and Output Vital Signs (last 24 hours): Temp Pulse Resp BP Pulse Ox 98 F 79 20 103/53 L 98 06/21/18 08:00 06/21/18 08:00 06/21/18 08:00 06/21/18 08:00 06/21/18 08:00 Intake and Output: 06/21/18 06/21/18 06:59 18:59 Intake Total 741.6 116.8 Output Total 200 500 Balance 541.6 -383.2 - Medications Medications: Current Medications Aspirin (Aspirin Chewable) 81 mg PO DAILY [facility] Last Admin: 06/21/18 10:00 Dose: Not Given Clopidogrel Bisulfate (Plavix) 75 mg PO DAILY [facility] Last Admin: 06/21/18 10:00 Dose: Not Given Dextrose (Dextrose 50% Inj) 0 ml IV STAT PRN; Protocol PRN Reason: Hypoglycemia Protocol Dextrose (Glutose 15) 0 gm PO ONCE PRN; Protocol PRN Reason: Hypoglycemia Protocol Famotidine (Pepcid) 40 mg PO DAILY [facility] Last Admin: 06/21/18 10:00 Dose: Not Given Glucagon (Glucagen Diagnostic Kit) 0 mg IM STAT PRN; Protocol PRN Reason: Hypoglycemia Protocol Dextrose (Dextrose 5% In Water 1000 Ml) 1,000 mls @ 0 mls/hr IV .Q0M PRN; Protocol; Per Protocol PRN Reason: Hypoglycemia Protocol Dextrose/Sodium Chloride (Dextrose 5%/0.45% Ns 1000 Ml) 1,000 mls @ 40 mls/hr IV .Q24H [facility] Last Admin: 06/21/18 09:45 Dose: Not Given Insulin Human Regular (Novolin R) 0 unit SC ACHS CHELY PRN Reason: Protocol Last Admin: 06/21/18 07:51 Dose: Not Given Levothyroxine Sodium (Synthroid) 125 mcg PO DAILY@0630 [facility] Last Admin: 06/21/18 06:32 Dose: 125 mcg Lisinopril (Zestril) 2.5 mg PO DAILY [facility] Last Admin: 06/21/18 10:00 Dose: Not Given Metoprolol Succinate (Toprol Xl) 25 mg PO DAILY [facility] Last Admin: 06/21/18 10:00 Dose: Not Given Rosuvastatin Calcium (Crestor) 10 mg PO HS CHELY Last Admin: 06/20/18 21:52 Dose: 10 mg Spironolactone (Aldactone) 25 mg PO DAILY [facility] Last Admin: 06/21/18 10:00 Dose: Not Given - Labs Labs: 06/21/18 05:11 06/21/18 05:11 PT 11.7 SECONDS (9.7-12.2) 06/18/18 11:57 INR 1.1 06/18/18 11:57 APTT 55 SECONDS (21-34) H D 06/21/18 05:11 Assessment and Plan (1) Unstable angina Status: Acute (2) Coronary artery disease due to lipid rich plaque Status: Acute (3) Hyperlipidemia Status: Chronic (4) Hypothyroidism Status: Chronic (5) Pericardial effusion Status: Resolved (6) Systolic dysfunction with heart failure Status: Acute (7) Prophylactic measure Status: Acute
[2018-06-22] MEDS: Levothyroxine 125 MCG TAB PO SCH (06:22)
[2018-06-22 06:35] LABS: BASO % 0.5 % (0.0-2.0); EOS # 0.2 K/uL (0.0-0.7); EOS % 3.8 % (0.0-4.0); LYMPH % 16.4 % (20.0-40.0); MEAN CELL VOLUME 84.4 fL (81.0-99.0); MEAN CORPUSCULAR HEMOGLOBIN 29.3 pg (27.0-31.0); MEAN CORPUSCULAR HGB CONC 34.7 g/dL (33.0-37.0); MEAN PLATELET VOLUME 9.3 fL (7.2-11.7); MONO # 0.6 K/uL (0.0-0.8); MONO % 9.5 % (0.0-10.0); NEUT # 4.4 K/uL (1.8-7.0); NEUT % 69.8 % (50.0-75.0); RBC 3.4 Mil/uL (3.80-5.20); WHITE BLOOD COUNT 6.3 K/uL (4.8-10.8)
[2018-06-22 06:54] LABS: ALB/GLOB RATIO 1.3 (1.0-2.1); ALBUMIN 3.3 g/dL (3.5-5.0); ALT/SGPT 46 U/L (9-52); AST/SGOT 45 U/L (14-36); BLOOD UREA NITROGEN 10 mg/dL (7-17); CALCIUM 9.1 mg/dl (8.6-10.4); GFR AFRICAN-AMERICAN > 60; GFR NON-AFRICAN AMERICAN > 60
[2018-06-22] MEDS: (Novolin R) Insulin Human Regular 100 units/ml vial SC SCH ×4 (07:30→21:50)
[2018-06-22] MEDS: Metoprolol Succinate 25 mg XL Tab PO SCH (09:14)
--- NOTE | 2018-06-22 12:05 | CP.CCUPN ---
<Nisreen Dominique P - Last Filed: 06/22/18 14:54> CCU Subjective - Physician Review Subjective (Free Text): PGY-1 Critical care progress note. Patient seen and examined at bedside. Patient status post angioplasty day 1. Patient sitting in chair, eating, in no acute distress. Patient states she feels much better and has no complaints at this time. Denies chest pain, shortness of breath, palpitations, extremity swelling, dizziness, lightheadedness. CCU Objective - Vital Signs / Intake & Output Intake and Output (Last 8hrs): Intake & Output 06/21/18 06/22/18 06/22/18 22:59 06:59 14:59 Intake Total 900 360 40 Output Total 900 400 300 Balance 0 -40 -260 Weight 149 lb 0.12 oz Intake: Intake, IV Amount 240 360 40 Left Antecubital 10 Left Wrist 220 360 40 Right Antecubital 10 Oral 660 Output: Urine 900 400 300 Urine, Voided 900 400 300 Emesis 0 Other: # Voids Urine, Voided 1 # Bowel Movements 0 0 0 - Physical Exam Head: Positive for: Atraumatic, Normocephalic Pupils: Positive for: PERRL Extroacular Muscles: Positive for: EOMI Conjunctiva: Positive for: Normal Mouth: Positive for: Moist Mucous Membranes Respiratory/Chest: Positive for: Clear to Auscultation. Negative for: Respiratory Distress, Wheezes, Rales, Rhonchi Cardiovascular: Positive for: Regular Rate and Rhythm, Normal S1, S2 Abdomen: Positive for: Normal Bowel Sounds. Negative for: Tenderness, Distention, Rebound, Guarding Lower Extremity: Positive for: Normal Inspection. Negative for: Edema, CALF TENDERNESS Neurological: Positive for: CN II-XII Intact, Speech Normal Skin: Positive for: Warm, Dry, Normal Color Psychiatric: Positive for: Alert, Oriented x 3 - Medications Active Medications: Active Medications Generic Name Dose Route Start Last Admin Trade Name Freq PRN Reason Stop Dose Admin Aspirin 81 mg 06/19/18 10:00 06/22/18 09:13 Aspirin Chewable PO 81 mg DAILY CHELY Administration Clopidogrel Bisulfate 75 mg 06/19/18 10:00 06/22/18 09:14 Plavix PO 75 mg DAILY CHELY Administration Dextrose 0 ml 06/19/18 13:43 Dextrose 50% Inj IV STAT PRN Hypoglycemia Protocol Protocol Dextrose 0 gm 06/19/18 13:43 Glutose 15 PO ONCE PRN Hypoglycemia Protocol Protocol Famotidine 40 mg 06/19/18 10:00 06/22/18 09:14 Pepcid PO 40 mg DAILY CHELY Administration Glucagon 0 mg 06/19/18 13:43 Glucagen Diagnostic Kit IM STAT PRN Hypoglycemia Protocol Protocol Dextrose 1,000 mls @ 0 mls/hr 06/19/18 13:43 Dextrose 5% In Water 1000 Ml IV .Q0M PRN Hypoglycemia Protocol Protocol Per Protocol Dextrose/Sodium Chloride 1,000 mls @ 40 mls/hr 06/20/18 09:45 06/21/18 19:48 Dextrose 5%/0.45% Ns 1000 Ml IV 40 mls/hr .Q24H CHELY Administration Insulin Human Regular 0 unit 06/19/18 16:30 06/22/18 07:30 Novolin R SC Not Given ACHS CHELY Protocol Levothyroxine Sodium 125 mcg 06/19/18 06:30 06/22/18 06:22 Synthroid PO 125 mcg DAILY@0630 CHELY Administration Lisinopril 2.5 mg 06/19/18 10:00 06/22/18 09:14 Zestril PO 2.5 mg DAILY CHELY Administration Metoprolol Succinate 25 mg 06/20/18 10:15 06/22/18 09:14 Toprol Xl PO 25 mg DAILY CHELY Administration Rosuvastatin Calcium 10 mg 06/18/18 22:00 06/21/18 22:15 Crestor PO 10 mg HS CHELY Administration Spironolactone 25 mg 06/19/18 11:00 06/22/18 09:14 Aldactone PO 25 mg DAILY CHELY Administration - Patient Studies Lab Studies: Lab Studies 06/22/18 06/22/18 06/22/18 Range/Units 07:12 06:21 06:21 WBC 6.3 (4.8-10.8) K/uL RBC 3.40 L (3.80-5.20) Mil/uL Hgb 10.0 L (11.0-16.0) g/dL Hct 28.7 L (34.0-47.0) % MCV 84.4 (81.0-99.0) fL MCH 29.3 (27.0-31.0) pg MCHC 34.7 (33.0-37.0) g/dL RDW 14.0 (11.5-14.5) % Plt Count 198 (130-400) K/uL MPV 9.3 (7.2-11.7) fL Neut % (Auto) 69.8 (50.0-75.0) % Lymph % (Auto) 16.4 L (20.0-40.0) % [place] % (Auto) 9.5 (0.0-10.0) % Eos % (Auto) 3.8 (0.0-4.0) % Baso % (Auto) 0.5 (0.0-2.0) % Neut # (Auto) 4.4 (1.8-7.0) K/uL Lymph # (Auto) 1.0 (1.0-4.3) K/uL [place] # (Auto) 0.6 (0.0-0.8) K/uL Eos # (Auto) 0.2 (0.0-0.7) K/uL Baso # (Auto) 0.0 (0.0-0.2) K/uL Sodium 141 (132-148) mmol/L Potassium 4.0 (3.6-5.2) mmol/L Chloride 108 H (98-107) mmol/L Carbon Dioxide 24 (22-30) mmol/L Anion Gap 13 (10-20) BUN 10 (7-17) mg/dL Creatinine 0.8 (0.7-1.2) mg/dL Est GFR ( Amer) > 60 Est GFR (Non-Af Amer) > 60 POC Glucose (mg/dL) 103 (65-110) mg/dL Random Glucose 95 (65-105) mg/dL Calcium 9.1 (8.6-10.4) mg/dl Phosphorus 3.9 (2.5-4.5) mg/dL Magnesium 1.7 (1.6-2.3) mg/dL Total Bilirubin 0.5 (0.2-1.3) mg/dL AST 45 H (14-36) U/L ALT 46 (9-52) U/L Alkaline Phosphatase 118 (38-126) U/L Total Protein 5.8 L (6.3-8.3) g/dL Albumin 3.3 L (3.5-5.0) g/dL Globulin 2.5 (2.2-3.9) gm/dL Albumin/Globulin Ratio 1.3 (1.0-2.1) 06/21/18 06/21/18 06/21/18 Range/Units 21:05 19:27 19:03 WBC (4.8-10.8) K/uL RBC (3.80-5.20) Mil/uL Hgb (11.0-16.0) g/dL Hct (34.0-47.0) % MCV (81.0-99.0) fL MCH (27.0-31.0) pg MCHC (33.0-37.0) g/dL RDW (11.5-14.5) % Plt Count (130-400) K/uL MPV (7.2-11.7) fL Neut % (Auto) (50.0-75.0) % Lymph % (Auto) (20.0-40.0) % [place] % (Auto) (0.0-10.0) % Eos % (Auto) (0.0-4.0) % Baso % (Auto) (0.0-2.0) % Neut # (Auto) (1.8-7.0) K/uL Lymph # (Auto) (1.0-4.3) K/uL [place] # (Auto) (0.0-0.8) K/uL Eos # (Auto) (0.0-0.7) K/uL Baso # (Auto) (0.0-0.2) K/uL Sodium (132-148) mmol/L Potassium (3.6-5.2) mmol/L Chloride (98-107) mmol/L Carbon Dioxide (22-30) mmol/L Anion Gap (10-20) BUN (7-17) mg/dL Creatinine (0.7-1.2) mg/dL Est GFR ( Amer) Est GFR (Non-Af Amer) POC Glucose (mg/dL) 113 H 80 65 (65-110) mg/dL Random Glucose (65-105) mg/dL Calcium (8.6-10.4) mg/dl Phosphorus (2.5-4.5) mg/dL Magnesium (1.6-2.3) mg/dL Total Bilirubin (0.2-1.3) mg/dL AST (14-36) U/L ALT (9-52) U/L Alkaline Phosphatase (38-126) U/L Total Protein (6.3-8.3) g/dL Albumin (3.5-5.0) g/dL Globulin (2.2-3.9) gm/dL Albumin/Globulin Ratio (1.0-2.1) 06/21/18 Range/Units 19:01 WBC (4.8-10.8) K/uL RBC (3.80-5.20) Mil/uL Hgb (11.0-16.0) g/dL Hct (34.0-47.0) % MCV (81.0-99.0) fL MCH (27.0-31.0) pg MCHC (33.0-37.0) g/dL RDW (11.5-14.5) % Plt Count (130-400) K/uL MPV (7.2-11.7) fL Neut % (Auto) (50.0-75.0) % Lymph % (Auto) (20.0-40.0) % [place] % (Auto) (0.0-10.0) % Eos % (Auto) (0.0-4.0) % Baso % (Auto) (0.0-2.0) % Neut # (Auto) (1.8-7.0) K/uL Lymph # (Auto) (1.0-4.3) K/uL [place] # (Auto) (0.0-0.8) K/uL Eos # (Auto) (0.0-0.7) K/uL Baso # (Auto) (0.0-0.2) K/uL Sodium (132-148) mmol/L Potassium (3.6-5.2) mmol/L Chloride (98-107) mmol/L Carbon Dioxide (22-30) mmol/L Anion Gap (10-20) BUN (7-17) mg/dL Creatinine (0.7-1.2) mg/dL Est GFR ( Amer) Est GFR (Non-Af Amer) POC Glucose (mg/dL) 66 (65-110) mg/dL Random Glucose (65-105) mg/dL Calcium (8.6-10.4) mg/dl Phosphorus (2.5-4.5) mg/dL Magnesium (1.6-2.3) mg/dL Total Bilirubin (0.2-1.3) mg/dL AST (14-36) U/L ALT (9-52) U/L Alkaline Phosphatase (38-126) U/L Total Protein (6.3-8.3) g/dL Albumin (3.5-5.0) g/dL Globulin (2.2-3.9) gm/dL Albumin/Globulin Ratio (1.0-2.1) Laboratory Results - last 24 hr 06/21/18 06/21/18 06/21/18 19:01 19:03 19:27 WBC RBC Hgb Hct MCV MCH MCHC RDW Plt Count MPV Neut % (Auto) Lymph % (Auto) [place] % (Auto) Eos % (Auto) Baso % (Auto) Neut # (Auto) Lymph # (Auto) [place] # (Auto) Eos # (Auto) Baso # (Auto) Sodium Potassium Chloride Carbon Dioxide Anion Gap BUN Creatinine Est GFR ( Amer) Est GFR (Non-Af Amer) POC Glucose (mg/dL) 66 65 80 Random Glucose Calcium Phosphorus Magnesium Total Bilirubin AST ALT Alkaline Phosphatase Total Protein Albumin Globulin Albumin/Globulin Ratio 06/21/18 06/22/18 06/22/18 21:05 06:21 06:21 WBC 6.3 RBC 3.40 L Hgb 10.0 L Hct 28.7 L MCV 84.4 MCH 29.3 MCHC 34.7 RDW 14.0 Plt Count 198 MPV 9.3 Neut % (Auto) 69.8 Lymph % (Auto) 16.4 L [place] % (Auto) 9.5 Eos % (Auto) 3.8 Baso % (Auto) 0.5 Neut # (Auto) 4.4 Lymph # (Auto) 1.0 [place] # (Auto) 0.6 Eos # (Auto) 0.2 Baso # (Auto) 0.0 Sodium 141 Potassium 4.0 Chloride 108 H Carbon Dioxide 24 Anion Gap 13 BUN 10 Creatinine 0.8 Est GFR ( Amer) > 60 Est GFR (Non-Af Amer) > 60 POC Glucose (mg/dL) 113 H Random Glucose 95 Calcium 9.1 Phosphorus 3.9 Magnesium 1.7 Total Bilirubin 0.5 AST 45 H ALT 46 Alkaline Phosphatase 118 Total Protein 5.8 L Albumin 3.3 L Globulin 2.5 Albumin/Globulin Ratio 1.3 06/22/18 07:12 WBC RBC Hgb Hct MCV MCH MCHC RDW Plt Count MPV Neut % (Auto) Lymph % (Auto) [place] % (Auto) Eos % (Auto) Baso % (Auto) Neut # (Auto) Lymph # (Auto) [place] # (Auto) Eos # (Auto) Baso # (Auto) Sodium Potassium Chloride Carbon Dioxide Anion Gap BUN Creatinine Est GFR ( Amer) Est GFR (Non-Af Amer) POC Glucose (mg/dL) 103 Random Glucose Calcium Phosphorus Magnesium Total Bilirubin AST ALT Alkaline Phosphatase Total Protein Albumin Globulin Albumin/Globulin Ratio Fingerstick Blood Sugar Results: 103 Review of Systems - Review of Systems All systems: reviewed and no additional remarkable complaints except (as per HPI ) Critical Care Progress Note - Prophylaxis GI Prophylaxis GI: Pepsid - Nutrition Nutrition: Nutrition Category Date Time Status Heart Healthy Diet [DIET] Diets 06/20/18 Lunch Active Assessment/Plan - Assessment and Plan (Free Text) Plan: This is a 58 year old female with PMHx CAD with catheterization and stent placement 08/2017, HF rEF, HTN, DM, HLD, hypothyroid who presented to the ED c/ o chest pain "while doing laundry," and was admitted to ICU to titrate IV nitro for pain free state. Neuro: -Pt with no neurological symptoms. -monitor for mental status change Cardio: -Troponin:.043->14.1-> 10.8 - Echocardiogram 06/18/18: EF 25-30%, global hypokinesis of LV. Transmitral doppler flow pattern is grade II-pseudonormal filling dynamics. LV end diastolic pressure is severely elevated. MR is mild to moderate. Mild TR. - f/u cardiology recs - Pt for diagnostic cath 06/20/18- severe RCA and LAD disease, plan for angioplasty -06/21/18: Patient for angioplasty at [facility] ([facility]) with 2 stents to mid and proximal RCA. -Lisinopril 2.5mg PO dialy, Toprol Xl 25mg PO daily, Crestor 10mg PO HS, Spironolactone 25mg PO daily, Plavix 75mg PO daily Pulm: -No complaints of difficulty breathing -CXR (06/18/18): mild to moderate pulmonary vascular congestion GI: -AST downtrending; continue to monitor Renal: -BUN/Cr: 10/0.8, stable Endo: - maintain euglycemia - ISS -hypoglycemia protocol -Levothyroxine 125mcg daily Heme: -H/H 10.028.7 -PTT: 55 -Heparin drip dc'ed -P2Y12 (06/18/18): 102 PPX: SCDs, Pepcid 40mg PO daily Dispo: Patient stable for transfer to Telemetry. Case was reviewed and discussed with attending physician, Dr. Mendez. <Colten Mendez - Last Filed: 06/22/18 17:26> CCU Objective - Vital Signs / Intake & Output Vital Signs (Last 4 hours): Vital Signs Pulse Resp BP 06/22/18 15:03 92 H 25 H 109/65 06/22/18 15:00 95 H 27 H 06/22/18 14:03 85 18 91/44 L 06/22/18 14:00 85 24 Intake and Output (Last 8hrs): Intake & Output 06/22/18 06/22/18 06/22/18 06:59 14:59 22:59 Intake Total 360 980 40 Output Total 400 1500 0 Balance -40 -520 40 Weight 149 lb 0.12 oz Intake: Intake, IV Amount 360 320 40 Left Wrist 360 320 40 Oral 660 Output: Urine 400 1500 0 Urine, Voided 400 1500 0 Other: # Voids Urine, Voided 1 # Bowel Movements 0 0 - Medications Active Medications: Active Medications Generic Name Dose Route Start Last Admin Trade Name Freq PRN Reason Stop Dose Admin Aspirin 81 mg 06/19/18 10:00 06/22/18 09:13 Aspirin Chewable PO 81 mg DAILY CHELY Administration Clopidogrel Bisulfate 75 mg 06/19/18 10:00 06/22/18 09:14 Plavix PO 75 mg DAILY CHELY Administration Dextrose 0 ml 06/19/18 13:43 Dextrose 50% Inj IV STAT PRN Hypoglycemia Protocol Protocol Dextrose 0 gm 06/19/18 13:43 Glutose 15 PO ONCE PRN Hypoglycemia Protocol Protocol Famotidine 40 mg 06/19/18 10:00 06/22/18 09:14 Pepcid PO 40 mg DAILY CHELY Administration Glucagon 0 mg 06/19/18 13:43 Glucagen Diagnostic Kit IM STAT PRN Hypoglycemia Protocol Protocol Heparin Sodium (Porcine) 5,000 units 06/22/18 22:00 Heparin SC Q8 CHELY Dextrose/Sodium Chloride 1,000 mls @ 40 mls/hr 06/20/18 09:45 06/22/18 16:43 Dextrose 5%/0.45% Ns 1000 Ml IV 40 mls/hr .Q24H CHELY Administration Insulin Human Regular 0 unit 06/19/18 16:30 06/22/18 16:39 Novolin R SC Not Given ACHS [facility] Protocol Levothyroxine Sodium 125 mcg 06/19/18 06:30 06/22/18 06:22 Synthroid PO 125 mcg DAILY@0630 CHELY Administration Lisinopril 2.5 mg 06/19/18 10:00 06/22/18 09:14 Zestril PO 2.5 mg DAILY CHELY Administration Metoprolol Succinate 25 mg 06/20/18 10:15 06/22/18 09:14 Toprol Xl PO 25 mg DAILY CHELY Administration Rosuvastatin Calcium 10 mg 06/18/18 22:00 06/21/18 22:15 Crestor PO 10 mg HS CHELY Administration Spironolactone 25 mg 06/19/18 11:00 06/22/18 09:14 Aldactone PO 25 mg DAILY CHELY Administration - Patient Studies Lab Studies: Lab Studies 06/22/18 06/22/18 06/22/18 Range/Units 16:21 11:39 07:12 WBC (4.8-10.8) K/uL RBC (3.80-5.20) Mil/uL Hgb (11.0-16.0) g/dL Hct (34.0-47.0) % MCV (81.0-99.0) fL MCH (27.0-31.0) pg MCHC (33.0-37.0) g/dL RDW (11.5-14.5) % Plt Count (130-400) K/uL MPV (7.2-11.7) fL Neut % (Auto) (50.0-75.0) % Lymph % (Auto) (20.0-40.0) % [place] % (Auto) (0.0-10.0) % Eos % (Auto) (0.0-4.0) % Baso % (Auto) (0.0-2.0) % Neut # (Auto) (1.8-7.0) K/uL Lymph # (Auto) (1.0-4.3) K/uL [place] # (Auto) (0.0-0.8) K/uL Eos # (Auto) (0.0-0.7) K/uL Baso # (Auto) (0.0-0.2) K/uL Sodium (132-148) mmol/L Potassium (3.6-5.2) mmol/L Chloride (98-107) mmol/L Carbon Dioxide (22-30) mmol/L Anion Gap (10-20) BUN (7-17) mg/dL Creatinine (0.7-1.2) mg/dL Est GFR ( Amer) Est GFR (Non-Af Amer) POC Glucose (mg/dL) 105 106 103 (65-110) mg/dL Random Glucose (65-105) mg/dL Calcium (8.6-10.4) mg/dl Phosphorus (2.5-4.5) mg/dL Magnesium (1.6-2.3) mg/dL Total Bilirubin (0.2-1.3) mg/dL AST (14-36) U/L ALT (9-52) U/L Alkaline Phosphatase (38-126) U/L Total Protein (6.3-8.3) g/dL Albumin (3.5-5.0) g/dL Globulin (2.2-3.9) gm/dL Albumin/Globulin Ratio (1.0-2.1) 06/22/18 06/22/18 06/21/18 Range/Units 06:21 06:21 21:05 WBC 6.3 (4.8-10.8) K/uL RBC 3.40 L (3.80-5.20) Mil/uL Hgb 10.0 L (11.0-16.0) g/dL Hct 28.7 L (34.0-47.0) % MCV 84.4 (81.0-99.0) fL MCH 29.3 (27.0-31.0) pg MCHC 34.7 (33.0-37.0) g/dL RDW 14.0 (11.5-14.5) % Plt Count 198 (130-400) K/uL MPV 9.3 (7.2-11.7) fL Neut % (Auto) 69.8 (50.0-75.0) % Lymph % (Auto) 16.4 L (20.0-40.0) % [place] % (Auto) 9.5 (0.0-10.0) % Eos % (Auto) 3.8 (0.0-4.0) % Baso % (Auto) 0.5 (0.0-2.0) % Neut # (Auto) 4.4 (1.8-7.0) K/uL Lymph # (Auto) 1.0 (1.0-4.3) K/uL [place] # (Auto) 0.6 (0.0-0.8) K/uL Eos # (Auto) 0.2 (0.0-0.7) K/uL Baso # (Auto) 0.0 (0.0-0.2) K/uL Sodium 141 (132-148) mmol/L Potassium 4.0 (3.6-5.2) mmol/L Chloride 108 H (98-107) mmol/L Carbon Dioxide 24 (22-30) mmol/L Anion Gap 13 (10-20) BUN 10 (7-17) mg/dL Creatinine 0.8 (0.7-1.2) mg/dL Est GFR ( Amer) > 60 Est GFR (Non-Af Amer) > 60 POC Glucose (mg/dL) 113 H (65-110) mg/dL Random Glucose 95 (65-105) mg/dL Calcium 9.1 (8.6-10.4) mg/dl Phosphorus 3.9 (2.5-4.5) mg/dL Magnesium 1.7 (1.6-2.3) mg/dL Total Bilirubin 0.5 (0.2-1.3) mg/dL AST 45 H (14-36) U/L ALT 46 (9-52) U/L Alkaline Phosphatase 118 (38-126) U/L Total Protein 5.8 L (6.3-8.3) g/dL Albumin 3.3 L (3.5-5.0) g/dL Globulin 2.5 (2.2-3.9) gm/dL Albumin/Globulin Ratio 1.3 (1.0-2.1) 06/21/18 06/21/18 06/21/18 Range/Units 19:27 19:03 19:01 WBC (4.8-10.8) K/uL RBC (3.80-5.20) Mil/uL Hgb (11.0-16.0) g/dL Hct (34.0-47.0) % MCV (81.0-99.0) fL MCH (27.0-31.0) pg MCHC (33.0-37.0) g/dL RDW (11.5-14.5) % Plt Count (130-400) K/uL MPV (7.2-11.7) fL Neut % (Auto) (50.0-75.0) % Lymph % (Auto) (20.0-40.0) % [place] % (Auto) (0.0-10.0) % Eos % (Auto) (0.0-4.0) % Baso % (Auto) (0.0-2.0) % Neut # (Auto) (1.8-7.0) K/uL Lymph # (Auto) (1.0-4.3) K/uL [place] # (Auto) (0.0-0.8) K/uL Eos # (Auto) (0.0-0.7) K/uL Baso # (Auto) (0.0-0.2) K/uL Sodium (132-148) mmol/L Potassium (3.6-5.2) mmol/L Chloride (98-107) mmol/L Carbon Dioxide (22-30) mmol/L Anion Gap (10-20) BUN (7-17) mg/dL Creatinine (0.7-1.2) mg/dL Est GFR ( Amer) Est GFR (Non-Af Amer) POC Glucose (mg/dL) 80 65 66 (65-110) mg/dL Random Glucose (65-105) mg/dL Calcium (8.6-10.4) mg/dl Phosphorus (2.5-4.5) mg/dL Magnesium (1.6-2.3) mg/dL Total Bilirubin (0.2-1.3) mg/dL AST (14-36) U/L ALT (9-52) U/L Alkaline Phosphatase (38-126) U/L Total Protein (6.3-8.3) g/dL Albumin (3.5-5.0) g/dL Globulin (2.2-3.9) gm/dL Albumin/Globulin Ratio (1.0-2.1) Laboratory Results - last 24 hr 06/21/18 06/21/18 06/21/18 19:01 19:03 19:27 WBC RBC Hgb Hct MCV MCH MCHC RDW Plt Count MPV Neut % (Auto) Lymph % (Auto) [place] % (Auto) Eos % (Auto) Baso % (Auto) Neut # (Auto) Lymph # (Auto) [place] # (Auto) Eos # (Auto) Baso # (Auto) Sodium Potassium Chloride Carbon Dioxide Anion Gap BUN Creatinine Est GFR ( Amer) Est GFR (Non-Af Amer) POC Glucose (mg/dL) 66 65 80 Random Glucose Calcium Phosphorus Magnesium Total Bilirubin AST ALT Alkaline Phosphatase Total Protein Albumin Globulin Albumin/Globulin Ratio 06/21/18 06/22/18 06/22/18 21:05 06:21 06:21 WBC 6.3 RBC 3.40 L Hgb 10.0 L Hct 28.7 L MCV 84.4 MCH 29.3 MCHC 34.7 RDW 14.0 Plt Count 198 MPV 9.3 Neut % (Auto) 69.8 Lymph % (Auto) 16.4 L [place] % (Auto) 9.5 Eos % (Auto) 3.8 Baso % (Auto) 0.5 Neut # (Auto) 4.4 Lymph # (Auto) 1.0 [place] # (Auto) 0.6 Eos # (Auto) 0.2 Baso # (Auto) 0.0 Sodium 141 Potassium 4.0 Chloride 108 H Carbon Dioxide 24 Anion Gap 13 BUN 10 Creatinine 0.8 Est GFR ( Amer) > 60 Est GFR (Non-Af Amer) > 60 POC Glucose (mg/dL) 113 H Random Glucose 95 Calcium 9.1 Phosphorus 3.9 Magnesium 1.7 Total Bilirubin 0.5 AST 45 H ALT 46 Alkaline Phosphatase 118 Total Protein 5.8 L Albumin 3.3 L Globulin 2.5 Albumin/Globulin Ratio 1.3 06/22/18 06/22/18 06/22/18 07:12 11:39 16:21 WBC RBC Hgb Hct MCV MCH MCHC RDW Plt Count MPV Neut % (Auto) Lymph % (Auto) [place] % (Auto) Eos % (Auto) Baso % (Auto) Neut # (Auto) Lymph # (Auto) [place] # (Auto) Eos # (Auto) Baso # (Auto) Sodium Potassium Chloride Carbon Dioxide Anion Gap BUN Creatinine Est GFR ( Amer) Est GFR (Non-Af Amer) POC Glucose (mg/dL) 103 106 105 Random Glucose Calcium Phosphorus Magnesium Total Bilirubin AST ALT Alkaline Phosphatase Total Protein Albumin Globulin Albumin/Globulin Ratio Critical Care Progress Note - Nutrition Nutrition: Nutrition Category Date Time Status Heart Healthy Diet [DIET] Diets 06/20/18 Lunch Active Attending/Attestation - Attestation I have personally seen and examined this patient.: Yes I have fully participated in the care of the patient.: Yes I have reviewed all pertinent clinical information: Yes Notes (Text): 06/22/18 17:25 status post stent placement Stable for transfer to floor
--- NOTE | 2018-06-22 16:40 | CP.PCM.PN ---
Subjective - Date & Time of Evaluation Date of Evaluation: 06/22/18 Time of Evaluation: 15:00 - Subjective Subjective: Medical Attending Note: Patient seen and examined. Patient seen this afternoon. Patient denies headache, denies chest pain, denies shortness of breathe, denies cough, denies abdominal pain, denies nausea, reports last bowel movement was on wednesday. No pain noted over the right wrist nor at femoral groin site. Objective - Vital Signs/Intake and Output Vital Signs (last 24 hours): Temp Pulse Resp BP Pulse Ox 98.4 F 92 H 25 H 109/65 98 06/22/18 12:00 06/22/18 15:03 06/22/18 15:03 06/22/18 15:03 06/22/18 12:00 Intake and Output: 06/22/18 06/22/18 06:59 18:59 Intake Total 1190 1020 Output Total 1300 1500 Balance -110 -480 - Medications Medications: Current Medications Aspirin (Aspirin Chewable) 81 mg PO DAILY [facility] Last Admin: 06/22/18 09:13 Dose: 81 mg Clopidogrel Bisulfate (Plavix) 75 mg PO DAILY [facility] Last Admin: 06/22/18 09:14 Dose: 75 mg Dextrose (Dextrose 50% Inj) 0 ml IV STAT PRN; Protocol PRN Reason: Hypoglycemia Protocol Dextrose (Glutose 15) 0 gm PO ONCE PRN; Protocol PRN Reason: Hypoglycemia Protocol Famotidine (Pepcid) 40 mg PO DAILY [facility] Last Admin: 06/22/18 09:14 Dose: 40 mg Glucagon (Glucagen Diagnostic Kit) 0 mg IM STAT PRN; Protocol PRN Reason: Hypoglycemia Protocol Heparin Sodium (Porcine) (Heparin) 5,000 units SC Q8 [facility] Dextrose/Sodium Chloride (Dextrose 5%/0.45% Ns 1000 Ml) 1,000 mls @ 40 mls/hr IV .Q24H [facility] Last Admin: 06/21/18 19:48 Dose: 40 mls/hr Insulin Human Regular (Novolin R) 0 unit SC ACHS [facility] PRN Reason: Protocol Last Admin: 06/22/18 11:30 Dose: Not Given Levothyroxine Sodium (Synthroid) 125 mcg PO DAILY@0630 [facility] Last Admin: 06/22/18 06:22 Dose: 125 mcg Lisinopril (Zestril) 2.5 mg PO DAILY [facility] Last Admin: 06/22/18 09:14 Dose: 2.5 mg Metoprolol Succinate (Toprol Xl) 25 mg PO DAILY [facility] Last Admin: 06/22/18 09:14 Dose: 25 mg Rosuvastatin Calcium (Crestor) 10 mg PO HS [facility] Last Admin: 06/21/18 22:15 Dose: 10 mg Spironolactone (Aldactone) 25 mg PO DAILY [facility] Last Admin: 06/22/18 09:14 Dose: 25 mg - Labs Labs: 06/22/18 06:21 06/22/18 06:21 PT 11.7 SECONDS (9.7-12.2) 06/18/18 11:57 INR 1.1 06/18/18 11:57 APTT 55 SECONDS (21-34) H D 06/21/18 05:11 - Constitutional Appears: Non-toxic, No Acute Distress - Head Exam Head Exam: NORMAL INSPECTION - Eye Exam Eye Exam: EOMI - ENT Exam ENT Exam: Mucous Membranes Moist - Respiratory Exam Respiratory Exam: Clear to Ausculation Bilateral, NORMAL BREATHING PATTERN. absent: Rales, Rhonchi, Wheezes - Cardiovascular Exam Cardiovascular Exam: REGULAR RHYTHM, +S1 - GI/Abdominal Exam GI & Abdominal Exam: Soft, Normal Bowel Sounds. absent: Distended, Firm, Guarding, Rigid, Tenderness, Rebound - Extremities Exam Extremities Exam: absent: Pedal Edema, Tenderness Additional comments: cath site groin: taped: appears clean, dry, intact right upper extremity: wrist: clean/dry/intact - Neurological Exam Neurological Exam: Alert, Awake, Oriented x3 Neuro motor strength exam: Left Upper Extremity: 5, Right Upper Extremity: 5, Left Lower Extremity: 5, Right Lower Extremity: 5 - Psychiatric Exam Psychiatric exam: Normal Affect, Normal Mood - Skin Skin Exam: Dry, Intact, Normal Color, Warm Assessment and Plan (1) Unstable angina Status: Acute (2) Coronary artery disease due to lipid rich plaque Status: Acute (3) Hyperlipidemia Status: Chronic (4) Hypothyroidism Status: Chronic (5) Pericardial effusion Status: Resolved (6) Systolic dysfunction with heart failure Status: Acute (7) Prophylactic measure Status: Acute Attending/Attestation - Attestation I have personally seen and examined this patient.: Yes I have fully participated in the care of the patient.: Yes I have reviewed all pertinent clinical information, including history, physical exam and plan: Yes Notes (Text): Assessment and Plan (1) Unstable angina Nonstemi Severe two vessel coronary artery disease Assessment & Plan: * Cardiology (Dr. Olea) on the case-->help appreciated Echocardiogram 06/18/18 :EF 25-30% :Global hypokinesis of left ventricle :Grade II pseudonormal filling dynamics :Mitral regurgitation is mild to moderate :Mild tricuspid regurgitation * Prior cardiac cath (08/30/17): stent in proximal LAD and plain balloon angioplasty of the distal LAD lesion. * Cath (06/20/18): RCA: 95% stenosis, large size has mid 65% right dominant circulation, left main large size vessl, left circumfelex 100% requiring total occlusion. Mild LAD stent patent, proximal LAD high grade 75-85% collateral, left circumflex 100% occluded with collaterals EF: 25-30% * * Cath (06/21/18): PCI of proximal and mid right coronary artery, with 2 stents ( JAZMINE) * ASA 81 mg PO 1x/day * Plavix 75 mg PO 1x/day * Zestril 2.5 mg PO 1x/day * Crestor 10 mg PO HS * Aldactone 25 mg PO 1x/day * Start Toprol XL 25mg PO daily Status: Acute (2) Coronary artery disease due to lipid rich plaque Assessment & Plan: * Cardiology (Dr. Olea) on the case-->help appreciated Echocardiogram 06/18/18 :EF 25-30% :Global hypokinesis of left ventricle :Grade II pseudonormal filling dynamics :Mitral regurgitation is mild to moderate :Mild tricuspid regurgitation Prior cardiac cath (08/30/17): stent in proximal LAD and plain balloon angioplasty of the distal LAD lesion. * ASA 81 mg PO 1x/day * Plavix 75 mg PO 1x/day * Zestril 2.5 mg PO 1x/day * Crestor 10 mg PO HS * Aldactone 25 mg PO 1x/day * Start Toprol XL 25mg PO daily Status: Acute (3) Hyperlipidemia Assessment & Plan: * Hold Lasix 40mg PO Daily * Toprol XL 25mg PO daily * Hold Isosorbide monomer 30mg PO Daily * Zestril 2.5 mg PO 1x/day Status: Chronic (4) Hypothyroidism Assessment & Plan: * Levothyroxine 125mcg PO Daily * TSH low at 0.7 but Free T4 normal at 1.56 Status: Chronic (5) Pericardial effusion-->resolved Assessment & Plan: As per previous Echo in 2017 Cardiology (Dr. Olea) on the case-->help appreciated Echocardiogram 06/18/18 :EF 25-30% :Global hypokinesis of left ventricle :Grade II pseudonormal filling dynamics :Mitral regurgitation is mild to moderate :Mild tricuspid regurgitation No pericardial effusion noted on 06/18/18 echo Status: Resolved (6) Systolic dysfunction with heart failure Assessment & Plan: * Cardiology (Dr. Olea) on the case-->help appreciated Echocardiogram 06/18/18 :EF 25-30% :Global hypokinesis of left ventricle :Grade II pseudonormal filling dynamics :Mitral regurgitation is mild to moderate :Mild tricuspid regurgitation Prior cardiac cath (08/30/17): stent in proximal LAD and plain balloon angioplasty of the distal LAD lesion. * ASA 81 mg PO 1x/day * Plavix 75 mg PO 1x/day * Zestril 2.5 mg PO 1x/day * Crestor 10 mg PO HS * Aldactone 25 mg PO 1x/day * Start Toprol XL 25mg PO daily Status: Acute Status: Acute (7) Prophylactic measure Assessment & Plan: * Heparin 5000 units subq8H * Pepcid 20mg PO BID * Downgraded by the ICU to telemetry today Status: Acute Disposition: I spoke with Dr. Olea, patient may be downgraded to telemetry. Patient will eventually need further intervention for the LAD. We will observe to see if remains chest pain free. Will consult PT/OT eval.
[2018-06-22] MEDS ORDERED: Bisacodyl 5mg EC Tab PO ONE (16:42)
[2018-06-22] MEDS: Dextrose 5%/0.45% NS 1,000 ML IV SCH (16:43)
[2018-06-23 00:28] VITALS: RESP 20; O2SAT 100
[2018-06-23] MEDS: Levothyroxine 125 MCG TAB PO SCH (06:52)
[2018-06-23] MEDS: (Novolin R) Insulin Human Regular 100 units/ml vial SC SCH ×3 (07:33→16:20)
[2018-06-23] MEDS: Metoprolol Succinate 25 mg XL Tab PO SCH (09:58)
--- NOTE | 2018-06-23 16:18 | CP.PCM.DIS ---
<Nicolasa Fonseca - Last Filed: 06/23/18 16:19> Provider - Provider Date of Admission: 06/18/18 13:08 Attending physician: Cathi Carey DO Time Spent in preparation of Discharge (in minutes): 45 Hospital Course - Lab Results Lab Results: Micro Results 06/18/18 14:43 Naris MRSA Culture (Admit) - Final MRSA NOT DETECTED Most Recent Lab Values WBC 6.3 K/uL (4.8-10.8) 06/22/18 06:21 RBC 3.40 Mil/uL (3.80-5.20) L 06/22/18 06:21 Hgb 10.0 g/dL (11.0-16.0) L 06/22/18 06:21 Hct 28.7 % (34.0-47.0) L 06/22/18 06:21 MCV 84.4 fL (81.0-99.0) 06/22/18 06:21 MCH 29.3 pg (27.0-31.0) 06/22/18 06:21 MCHC 34.7 g/dL (33.0-37.0) 06/22/18 06:21 RDW 14.0 % (11.5-14.5) 06/22/18 06:21 Plt Count 198 K/uL (130-400) 06/22/18 06:21 MPV 9.3 fL (7.2-11.7) 06/22/18 06:21 Neut % (Auto) 69.8 % (50.0-75.0) 06/22/18 06:21 Lymph % (Auto) 16.4 % (20.0-40.0) L 06/22/18 06:21 Huron % (Auto) 9.5 % (0.0-10.0) 06/22/18 06:21 Eos % (Auto) 3.8 % (0.0-4.0) 06/22/18 06:21 Baso % (Auto) 0.5 % (0.0-2.0) 06/22/18 06:21 Neut # (Auto) 4.4 K/uL (1.8-7.0) 06/22/18 06:21 Lymph # (Auto) 1.0 K/uL (1.0-4.3) 06/22/18 06:21 Huron # (Auto) 0.6 K/uL (0.0-0.8) 06/22/18 06:21 Eos # (Auto) 0.2 K/uL (0.0-0.7) 06/22/18 06:21 Baso # (Auto) 0.0 K/uL (0.0-0.2) 06/22/18 06:21 PT 11.7 SECONDS (9.7-12.2) 06/18/18 11:57 INR 1.1 06/18/18 11:57 APTT 55 SECONDS (21-34) H D 06/21/18 05:11 Plt P2Y12 React Units 102 PRU (194-418) L 06/18/18 18:00 Sodium 141 mmol/L (132-148) 06/22/18 06:21 Potassium 4.0 mmol/L (3.6-5.2) 06/22/18 06:21 Chloride 108 mmol/L (98-107) H 06/22/18 06:21 Carbon Dioxide 24 mmol/L (22-30) 06/22/18 06:21 Anion Gap 13 (10-20) 06/22/18 06:21 BUN 10 mg/dL (7-17) 06/22/18 06:21 Creatinine 0.8 mg/dL (0.7-1.2) 06/22/18 06:21 Est GFR ( Amer) > 60 06/22/18 06:21 Est GFR (Non-Af Amer) > 60 06/22/18 06:21 POC Glucose (mg/dL) 104 mg/dL (65-110) 06/23/18 11:31 Random Glucose 95 mg/dL (65-105) 06/22/18 06:21 Hemoglobin A1c 5.6 % (4.2-6.5) 06/18/18 18:02 Calcium 9.1 mg/dl (8.6-10.4) 06/22/18 06:21 Phosphorus 3.9 mg/dL (2.5-4.5) 06/22/18 06:21 Magnesium 1.7 mg/dL (1.6-2.3) 06/22/18 06:21 Total Bilirubin 0.5 mg/dL (0.2-1.3) 06/22/18 06:21 AST 45 U/L (14-36) H 06/22/18 06:21 ALT 46 U/L (9-52) 06/22/18 06:21 Alkaline Phosphatase 118 U/L (38-126) 06/22/18 06:21 Total Creatine Kinase 109 U/L (30-135) 06/18/18 11:57 Troponin I 10.8000 ng/mL (0.00-0.120) H* 06/19/18 01:51 NT-Pro-B Natriuret Pep 556 pg/mL (0-900) 06/18/18 11:57 Total Protein 5.8 g/dL (6.3-8.3) L 06/22/18 06:21 Albumin 3.3 g/dL (3.5-5.0) L 06/22/18 06:21 Globulin 2.5 gm/dL (2.2-3.9) 06/22/18 06:21 Albumin/Globulin Ratio 1.3 (1.0-2.1) 06/22/18 06:21 Triglycerides 78 mg/dL (0-149) D 06/18/18 18:02 Cholesterol 148 mg/dL (0-199) 06/18/18 18:02 LDL Cholesterol Direct 79 mg/dL (0-129) 06/18/18 18:02 HDL Cholesterol 41 mg/dL (30-70) 06/18/18 18:02 Free T4 1.56 ng/dL (0.78-2.19) 06/18/18 18:02 TSH 3rd Generation 0.07 mIU/L (0.46-4.68) L 06/18/18 18:02 Blood Type B POSITIVE 06/18/18 11:57 Antibody Screen Negative 06/18/18 11:57 - Hospital Course Hospital Course: PMD: None per Chart Review Radiology Orderly: Dr. Rivas Past medical history: hypertension, hyperlipidemia, cad, autoimmune thyroiditis Medications:Furosemide 40mg PO Daily, Clopidogrel 75mg PO Daily, Isosorbide Hur[place] 30mg PO Daily, Renexa 500mg Q12, ASA 81 mg PO Daily, Lisinopril 5mg PO Daily, Simvistatin 80mg PO HS, Levothyroxine 125mcg PO Daily Allergies: Denies Surigcal history: Pterygium Eye surgery (2016), Cardiac cath (08/2017) showed LAD 100% blockage Code Status:Full code Upon Admission: 58 year old female with a past medical history of HF rEP (sytolic HF), hypertension, hyperlipidemia, cad, autoimmunie thyroiditis, hypothyroidism, pleural effusion who comes into the hospital today after reporting some chest pain that began earlier this morning. The patient states that it started while she was doing laundry in her home. She subsequently began to feel a stabbing sensation that was diffuse throughout her anterior chest. She rates the pain initially as a 8/10 in severity with no radiation. Patient reports taking an Aspirin after the chest pain began, however she didn't notice an improvement in her symptoms. She denies any orthopnea, dyspnea, dizziness, fevers, chills, nausea, vomiting, changes in vision, abdominal pain, palpitations, syncopal episodes, recent travel, or any other complaints. Hospital Course: 58 year old female presented to the hospital with chest pain while doing laundry. Troponins elevated 06/18 and 06/19. EKG showed ST elevation; Echo results were EF-25-30%, ventricle systolic function is moderately to severely impaired; Cardiac cath was done at [place] where 2x stents were placed with Dr. Sanders; followup outpatient with [facility] and Dr. Sanders. Patient is stable for discharge to home as per Dr. Carey. Patient is instructed to followup with Dr. Sanders in one week for discussion of stent placement procedure. Patient also instructed to make an appointment at [facility] after discharge in one week. The phone number for [facility] is: [phone]. Patient understands the clinic has Latvian speaking career services representative to allow for easy conversation. Patient should continue the following medications upon discharge: Furosemide 20mg daily by mouth once a day , Aspirin 81mg by mouth once a day, Plavix 75 mg by mouth once a day, Synthroid 125mcg by mouth once a day, Metoprolol 25mg by mouth once a day, Crestor 10 mg by mouth once a day. Patient instructed to take daily weights and to limit fluid intake to less than 1L/day. Patient instructed to return to hospital if symptoms recur or worsen. Patient understands and agrees to the plan above. El paciente est estable para la descarga a casa segn el Dr. Carey. El paciente recibe instrucciones de seguimiento con el Dr. Sanders en genia semana para discutir el procedimiento de colocacin de stent. El paciente tambin recibi instrucciones para programar genia zenobia en [facility] despus del jasmin en genia semana. El nmero de telfono de [facility] es: [phone]. El paciente comprende que la clnica cuenta con un representante que habla espaol para permitir genia conversacin fcil. El paciente debe continuar con los siguientes medicamentos al momento del jasmin: furosemida 20 mg por va oral genia vez al da, aspirina por va oral genia vez al da, 75 mg por va oral genia vez al da, 125 mg por va oral de Synthroid genia vez al da, 25 mg de metoprolol por v a oral genia vez al da , Crestor 10 mg por va oral genia vez al da. El paciente debe bg pesas diarias y limitar el consumo de lquidos a menos de 1 litro / d a. El paciente debe regresar al hospital si los sntomas reaparecen o empeoran. El paciente comprende y acepta el plan anterior. The information listed above is brief synopsis of patient's hospital stay. Full report details are in EMR. Discharge Exam - Head Exam Head Exam: NORMAL INSPECTION, NORMOCEPHALIC - Eye Exam Eye Exam: EOMI, Normal appearance. absent: Nystagmus, Scleral icterus - ENT Exam ENT Exam: Mucous Membranes Moist, Normal Exam - Respiratory Exam Respiratory Exam: NORMAL BREATHING PATTERN. absent: Decreased Breath Sounds, Rales, Rhonchi, Wheezes, Respiratory Distress - Cardiovascular Exam Cardiovascular Exam: REGULAR RHYTHM, +S1, +S2. absent: Diastolic murmur, Systolic Murmur - GI/Abdominal Exam GI & Abdominal Exam: Normal Bowel Sounds, Soft. absent: Distended, Firm, Guarding, Tenderness - Extremities Exam Extremities exam: normal inspection - Back Exam Back exam: NORMAL INSPECTION. absent: CVA tenderness (L), CVA tenderness (R), vertebral tenderness - Neurological Exam Neurological exam: Alert, Oriented x3 - Psychiatric Exam Psychiatric exam: Normal Affect, Normal Mood - Skin Skin Exam: Normal Color Discharge Plan - Discharge Medications Prescriptions: Aspirin [Aspirin Chewable] 81 mg PO DAILY #30 chew Clopidogrel [Plavix] 75 mg PO DAILY #30 tab Furosemide [Lasix] 20 mg PO DAILY #30 tab Metoprolol Succinate XL [Toprol XL] 25 mg PO DAILY #30 tab Rosuvastatin Calcium [Crestor] 10 mg PO HS #30 tab Spironolactone [Aldactone] 25 mg PO DAILY #30 tab - Follow Up Plan Condition: STABLE Disposition: HOME/ ROUTINE Instructions: Heart Healthy Diet, Heart Failure, Adult (DC), Cardiac Catheterization (DC), Angina (DC), Coronary Heart Disease (DC), Aspirin, Clopidogrel, Furosemide, Metoprolol, Rosuvastatin, Spironolactone Additional Instructions: Patient is stable for discharge to home as per Dr. Carey. Patient is instructed to followup with Dr. Sanders in one week for discussion of stent placement procedure. Patient also instructed to make an appointment at [facility] after discharge in one week. The phone number for [facility] is: [phone]. Patient understands the clinic has Latvian speaking career services representative to allow for easy conversation. Patient should continue the following medications upon discharge: Furosemide 20mg daily by mouth once a day , Aspirin 81mg by mouth once a day, Plavix 75 mg by mouth once a day, Synthroid 125mcg by mouth once a day, Metoprolol 25mg by mouth once a day, Crestor 10 mg by mouth once a day. Patient instructed to take daily weights and to limit fluid intake to less than 1L/day. Patient instructed to return to hospital if symptoms recur or worsen. Patient understands and agrees to the plan above. El paciente est estable para la descarga a casa segn el Dr. Carey. El paciente recibe instrucciones de seguimiento con el Dr. Sanders en genia semana para discutir el procedimiento de colocacin de stent. El paciente tambin recibi instrucciones para programar genia zenobia en [facility] despus del jasmin en genia semana. El nmero de telfono de [facility] es: [phone]. El paciente comprende que la clnica cuenta con un representante que habla espaol para permitir genia conversacin fcil. El paciente debe continuar con los siguientes medicamentos al momento del jasmin: furosemida 20 mg por va oral genia vez al da, aspirina por va oral genia vez al da, 75 mg por va oral genia vez al da, 125 mg por va oral de Synthroid genia vez al da, 25 mg de metoprolol por v a oral genia vez al da , Crestor 10 mg por va oral gneia vez al da. El paciente debe bg pesas diarias y limitar el consumo de lquidos a menos de 1 litro / d a. El paciente debe regresar al hospital si los sntomas reaparecen o empeoran. El paciente comprende y acepta el plan anterior. Referrals: Taiwo Sanders MD [Staff Provider] - <Cathi Carey V - Last Filed: 06/24/18 00:00> Provider - Provider Date of Admission: 06/18/18 13:08 Attending physician: Cathi Carey DO Diagnosis - Discharge Diagnosis (1) Unstable angina Status: Acute (2) Coronary artery disease due to lipid rich plaque Status: Acute (3) Hyperlipidemia Status: Chronic (4) Hypothyroidism Status: Chronic (5) Pericardial effusion Status: Resolved (6) Systolic dysfunction with heart failure Status: Acute (7) Prophylactic measure Status: Acute Hospital Course - Lab Results Lab Results: Micro Results 06/18/18 14:43 Naris MRSA Culture (Admit) - Final MRSA NOT DETECTED Most Recent Lab Values WBC 6.3 K/uL (4.8-10.8) 06/22/18 06:21 RBC 3.40 Mil/uL (3.80-5.20) L 06/22/18 06:21 Hgb 10.0 g/dL (11.0-16.0) L 06/22/18 06:21 Hct 28.7 % (34.0-47.0) L 06/22/18 06:21 MCV 84.4 fL (81.0-99.0) 06/22/18 06:21 MCH 29.3 pg (27.0-31.0) 06/22/18 06:21 MCHC 34.7 g/dL (33.0-37.0) 06/22/18 06:21 RDW 14.0 % (11.5-14.5) 06/22/18 06:21 Plt Count 198 K/uL (130-400) 06/22/18 06:21 MPV 9.3 fL (7.2-11.7) 06/22/18 06:21 Neut % (Auto) 69.8 % (50.0-75.0) 06/22/18 06:21 Lymph % (Auto) 16.4 % (20.0-40.0) L 06/22/18 06:21 Huron % (Auto) 9.5 % (0.0-10.0) 06/22/18 06:21 Eos % (Auto) 3.8 % (0.0-4.0) 06/22/18 06:21 Baso % (Auto) 0.5 % (0.0-2.0) 06/22/18 06:21 Neut # (Auto) 4.4 K/uL (1.8-7.0) 06/22/18 06:21 Lymph # (Auto) 1.0 K/uL (1.0-4.3) 06/22/18 06:21 Huron # (Auto) 0.6 K/uL (0.0-0.8) 06/22/18 06:21 Eos # (Auto) 0.2 K/uL (0.0-0.7) 06/22/18 06:21 Baso # (Auto) 0.0 K/uL (0.0-0.2) 06/22/18 06:21 PT 11.7 SECONDS (9.7-12.2) 06/18/18 11:57 INR 1.1 06/18/18 11:57 APTT 55 SECONDS (21-34) H D 06/21/18 05:11 Plt P2Y12 React Units 102 PRU (194-418) L 06/18/18 18:00 Sodium 141 mmol/L (132-148) 06/22/18 06:21 Potassium 4.0 mmol/L (3.6-5.2) 06/22/18 06:21 Chloride 108 mmol/L (98-107) H 06/22/18 06:21 Carbon Dioxide 24 mmol/L (22-30) 06/22/18 06:21 Anion Gap 13 (10-20) 06/22/18 06:21 BUN 10 mg/dL (7-17) 06/22/18 06:21 Creatinine 0.8 mg/dL (0.7-1.2) 06/22/18 06:21 Est GFR ( Amer) > 60 06/22/18 06:21 Est GFR (Non-Af Amer) > 60 06/22/18 06:21 POC Glucose (mg/dL) 92 mg/dL (65-110) 06/23/18 15:57 Random Glucose 95 mg/dL (65-105) 06/22/18 06:21 Hemoglobin A1c 5.6 % (4.2-6.5) 06/18/18 18:02 Calcium 9.1 mg/dl (8.6-10.4) 06/22/18 06:21 Phosphorus 3.9 mg/dL (2.5-4.5) 06/22/18 06:21 Magnesium 1.7 mg/dL (1.6-2.3) 06/22/18 06:21 Total Bilirubin 0.5 mg/dL (0.2-1.3) 06/22/18 06:21 AST 45 U/L (14-36) H 06/22/18 06:21 ALT 46 U/L (9-52) 06/22/18 06:21 Alkaline Phosphatase 118 U/L (38-126) 06/22/18 06:21 Total Creatine Kinase 109 U/L (30-135) 06/18/18 11:57 Troponin I 10.8000 ng/mL (0.00-0.120) H* 06/19/18 01:51 NT-Pro-B Natriuret Pep 556 pg/mL (0-900) 06/18/18 11:57 Total Protein 5.8 g/dL (6.3-8.3) L 06/22/18 06:21 Albumin 3.3 g/dL (3.5-5.0) L 06/22/18 06:21 Globulin 2.5 gm/dL (2.2-3.9) 06/22/18 06:21 Albumin/Globulin Ratio 1.3 (1.0-2.1) 08/01/18 06:21 Triglycerides 78 mg/dL (0-149) D 06/18/18 18:02 Cholesterol 148 mg/dL (0-199) 06/18/18 18:02 LDL Cholesterol Direct 79 mg/dL (0-129) 06/18/18 18:02 HDL Cholesterol 41 mg/dL (30-70) 06/18/18 18:02 Free T4 1.56 ng/dL (0.78-2.19) 06/18/18 18:02 TSH 3rd Generation 0.07 mIU/L (0.46-4.68) L 06/18/18 18:02 Blood Type B POSITIVE 06/18/18 11:57 Antibody Screen Negative 06/18/18 11:57 Discharge Exam - Extremities Exam Extremities exam: pedal pulses present Additional comments: no edema noted - Skin Skin Exam: Dry, Normal Color Additional comments: noted ecchymoses over groin site (cardiology aware-stable from standpoint; rn had discussed with cardio) Clinical Quality Measures - CQM - Heart Failure Ejection Fraction: Less Than 40 % Left Ventricular Function to be assessed after discharge: Yes LATOYA Inhibitor Prescribed: Yes Beta-Radha Prescribed: Metoprolol Succinate Angiotensin II Receptor Radha Prescribed: No Contraindication/Reason for not providing: on latoya inhibitor AnticoagulationTherapy for Atrial Fibrillation/Atrialflutter: No Contraindication/Reason for not providing: not clinically indicated Aldosterone Antagonist Prescribed: Yes Hydralazine Nitrate Prescribed: No Contraindication/Reason for not providing: not clinically indicated Implantable Cardioverter Defibrillator Therapy: No Contraindication/Reason for not providing: per discretion of cardio, needs LAD intervention in future Cardiac Resynchronization Therapy Prescribed: No Contraindication/Reason for not providing: not cliically indicated Follow Up Date (must be within 7 days from discharge): 06/28/18 Follow Up Time: 09:00 - Date & Time of Discharge Summary Date of Discharge Summary: 06/23/18 Time of Discharge Summary: 16:12 Attending/Attestation - Attestation I have personally seen and examined this patient.: Yes I have fully participated in the care of the patient.: Yes I have reviewed all pertinent clinical information, including history, physical exam and plan: Yes Notes (Text): Patient seen, examined and case discussed with medical assistant ob gyn. Note error in discharge summary: cardiology consult is Dr. rivas not dr. Sanders on this case and on discharge, patient to follow-up with Dr. rivas, next WednesdayJune 28 at this [place] office. She is also strongly advised to establish care at the [facility] for general health care maintenance. Patient seen this afternoon. Patient completed 2 laps around the nursing station observed by biofuels production manager; case discussed with biofuels production manager who reports stable from his standpoint for discharge; will need to f/u on discharge with him on June 28 for future intervention of the LAD and time needed to given recent contrast exposure for the two caths this week. Recommends on discharge the followin) Aspirin 81mg PO daily 2) Plavix 75mg PO daily 3) Toprol XL 25mg PO daily 4) Aldactone 25mg PO daily 5) Crestor 10mg PO daily 6) Lisinopril 2.5mg PO daily 7) lasix 20mg PO once a day. I have personally discussed discharge instructions with the [employer], [employer], Lat[place]ian explaining each medication, the role they play in her coronary artery disease/post AR management. Patient is aware to maintain compliance on her medications. She was also discussed to change diet to more vegetables/fish grilled/baked to reduce her cholestrol/fat content in diet. Lastly, she is aware she needs to be on fluid restriction advised 1 Liter total and record in diary given her chronic systolic heart failure in light of her coronary artery disease. If any chest pain/palpitations, advised to return to ED for immediate evaluation. Discharge Diagnoses (1) Unstable angina-->Stable Nonstemi-->Stable Severe two vessel coronary artery disease-->chronic Assessment & Plan: * Cardiology (Dr. Rivas) on the case-->help appreciated Echocardiogram 06/18/18 :EF 25-30% :Global hypokinesis of left ventricle :Grade II pseudonormal filling dynamics :Mitral regurgitation is mild to moderate :Mild tricuspid regurgitation * Prior cardiac cath (08/30/17): stent in proximal LAD and plain balloon angioplasty of the distal LAD lesion. * Cath (06/20/18): RCA: 95% stenosis, large size has mid 65% right dominant circulation, left main large size vessl, left circumfelex 100% requiring total occlusion. Mild LAD stent patent, proximal LAD high grade 75-85% collateral, left circumflex 100% occluded with collaterals EF: 25-30% * Cath (06/21/18): PCI of proximal and mid right coronary artery, with 2 stents ( JAZMINE) * ASA 81 mg PO 1x/day * Plavix 75 mg PO 1x/day * Zestril 2.5 mg PO 1x/day * Crestor 10 mg PO HS * Aldactone 25 mg PO 1x/day * Start Toprol XL 25mg PO daily Status: Acute (2) Coronary artery disease due to lipid rich plaque Assessment & Plan: * Cardiology (Dr. Rivas) on the case-->help appreciated Echocardiogram 06/18/18 :EF 25-30% :Global hypokinesis of left ventricle :Grade II pseudonormal filling dynamics :Mitral regurgitation is mild to moderate :Mild tricuspid regurgitation * Prior cardiac cath (08/30/17): stent in proximal LAD and plain balloon angioplasty of the distal LAD lesion. * Cath (06/20/18): RCA: 95% stenosis, large size has mid 65% right dominant circulation, left main large size vessl, left circumfelex 100% requiring total occlusion. Mild LAD stent patent, proximal LAD high grade 75-85% collateral, left circumflex 100% occluded with collaterals EF: 25-30% * Cath (06/21/18): PCI of proximal and mid right coronary artery, with 2 stents ( JAZMINE) * Future LAD intervention to be scheduled for follow-up June [address] Rivas [address] Dr. Sanders noted in the d/c summary by resident * ASA 81 mg PO 1x/day * Plavix 75 mg PO 1x/day * Zestril 2.5 mg PO 1x/day * Crestor 10 mg PO HS * Aldactone 25 mg PO 1x/day * Start Toprol XL 25mg PO daily Status: Acute (3) Hyperlipidemia Assessment & Plan: * Hold Lasix 40mg PO Daily * Toprol XL 25mg PO daily * Hold Isosorbide monomer 30mg PO Daily * Zestril 2.5 mg PO 1x/day Status: Chronic (4) Hypothyroidism Assessment & Plan: * Levothyroxine 125mcg PO Daily * TSH low at 0.7 but Free T4 normal at 1.56 Status: Chronic (5) Pericardial effusion-->resolved Assessment & Plan: As per previous Echo in 2017 Cardiology (Dr. Rivas) on the case-->help appreciated Echocardiogram 06/18/18 :EF 25-30% :Global hypokinesis of left ventricle :Grade II pseudonormal filling dynamics :Mitral regurgitation is mild to moderate :Mild tricuspid regurgitation No pericardial effusion noted on 06/18/18 echo Status: Resolved (6) Chronic Systolic dysfunction with heart failure Assessment & Plan: * Chronic, systolic * Cardiology (Dr. Rivas) on the case-->help appreciated Echocardiogram 06/18/18 :EF 25-30% :Global hypokinesis of left ventricle :Grade II pseudonormal filling dynamics :Mitral regurgitation is mild to moderate :Mild tricuspid regurgitation * Prior cardiac cath (08/30/17): stent in proximal LAD and plain balloon angioplasty of the distal LAD lesion. * Cath (06/20/18): RCA: 95% stenosis, large size has mid 65% right dominant circulation, left main large size vessl, left circumfelex 100% requiring total occlusion. Mild LAD stent patent, proximal LAD high grade 75-85% collateral, left circumflex 100% occluded with collaterals EF: 25-30% * Cath (06/21/18): PCI of proximal and mid right coronary artery, with 2 stents ( JAZMINE) * ASA 81 mg PO 1x/day * Plavix 75 mg PO 1x/day * Zestril 2.5 mg PO 1x/day * Crestor 10 mg PO HS * Aldactone 25 mg PO 1x/day * Start Toprol XL 25mg PO daily * Lasix 20mg PO daily * Fluid restriction Status: Acute Status: Acute (7) Prophylactic measure Assessment & Plan: * Heparin 5000 units subq8H * Pepcid 20mg PO BID Status: Acute
[2018-06-23 16:29] VITALS: BP 127/73; PULSE 79; TEMP 98.2
== END 2018-06-23 18:01 | disposition home or self-care (01) | DRG 121 ==
LOC: C.ER 11:19 → C.9I 13:08 → C.6T 06-22 22:53
PROVIDERS: ADMIT Hospitalist; ATTEND Hospitalist
PROC: 4A023N7 Measurement of Cardiac Sampling and Pressure, Left Heart, Percutaneous Approach (ICD-10-PCS; principal; 2018-06-20)
PROC: B211YZZ Fluoroscopy of Multiple Coronary Arteries using Other Contrast (ICD-10-PCS; 2018-06-20)
PROC: B215YZZ Fluoroscopy of Left Heart using Other Contrast (ICD-10-PCS; 2018-06-20)
DX: I21.4 Non-ST elevation (NSTEMI) myocardial infarction (principal); I50.22 Chronic systolic (congestive) heart failure; I11.0 Hypertensive heart disease with heart failure; I42.9 Cardiomyopathy, unspecified; I07.1 Rheumatic tricuspid insufficiency; I25.10 Atherosclerotic heart disease of native coronary artery without angina pectoris; E11.9 Type 2 diabetes mellitus without complications; E06.3 Autoimmune thyroiditis; E78.5 Hyperlipidemia, unspecified; I31.3 Pericardial effusion (noninflammatory)